=== PATIENT | male | born 1950 | race Caucasian/White ===

== ENCOUNTER 2023-05-08 10:05 | Outpatient (AMB) | payer MEDICARE, OTHER, SELFPAY ==
--- NOTE | 2023-05-08 10:07 | MHC.PC.OV ---
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 Allergies No Known Allergies Allergy (Verified 05/08/23 10:10) Tobacco use date assessed: 05/08/23 Fall risk assessment: No Falls in past year Last assessed Fall Risk: 05/08/23 Dental Screening Dental Screen Date: 05/08/23 Did you have a dental visit in the last 12 months?: Yes Did you have a dental problem in the last 6 months where you did not have access to dental care?: No Was dental information given to patient?: Patient has dentist HPI 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 HTN, PVD, Esophageal Stricture, Hepatitis SurgHx: Cardiac Stent 2016. Esophageal dilitation. FHx: Dad: CAD & WA age 45. Sister: DM SocHx: Quit Cigars 2015, EtOH: <1 drink less than once a week, No drugs PFSH Surgical History (Updated 05/08/23 @ 10:17 by Moises Saldivar CMA) H/O removal of cyst H/O shoulder surgery Hx of appendectomy Hx of cataract surgery Hx of hernia repair Status post surgical removal of neoplasm of skin Family History (Updated 05/08/23 @ 10:18 by Moises Saldivar CMA) Father Heart problem Mother Heart problem Social History (Updated 05/08/23 @ 10:19 by Moises Saldivar CMA) Housing: House Alcohol intake: current Alcohol intake frequency: a few times a month Alcohol type: beer and wine Patient Tobacco Use Status: Former Tobacco user Tobacco use type: Cigar e-Cigarette/Vaping Use: Never Used service: No Current occupational status: employed Current occupational exposures/hazards: No Cognitive needs: No Hearing needs: No Vision needs: Yes Questionnaire PHQ-9 Over the last 2 weeks, how often have you been bothered by any of the following problems? 1. Little interest or pleasure in doing things: not at all 2. Feeling down, depressed, or hopeless: several days 3. Trouble falling or staying asleep, or sleeping too much: several days 4. Feeling tired or having little energy: several days 5. Poor appetite or overeating: several days 6. Feeling bad about yourself - or that you are a failure or have let yourself or your family down: several days 7. Trouble concentrating on things, such as reading the newspaper or watching television: not at all 8. Moving or speaking so slowly that other people could have noticed. Or the opposite - being so fidgety or restless that you have been moving around a lot more than usual: not at all 9. Thoughts that you would be better off or of hurting yourself in some way: not at all Total score: 5 44265 - PHQ-9 Billing: Yes Source: Developed by Drs. Henry Tony, Angie Funes, Lito Jean-Baptiste and colleagues, with an educational kinza from [employer]. Thrive Questionnaire Date Thrive assessed: 05/08/23 I am a: Patient What is your living situation today?: I have a steady place to live Within the past 12 months, did the food you bought not last and you didn't have the money to get more?: Never true Within the past 12 months, did you worry whether your food would run out before you got money to buy more?: Never true Do you have trouble paying for medicines?: No Do you have trouble getting transportation to medical appointments?: No Do you have trouble paying your heating and electricity bill?: No Do you have trouble taking care of your child, family member or friend?: No Do you have trouble with day-to-day activities such as bathing, preparing meals, shopping, managing finances, etc.?: No Are you currently unemployed and looking for a job?: No Are you interested in more education?: No Please select the resources that you would like help with: None Currently or been in a relationship where the following occur: no concerns reported BUDDY-7 AMB Questionnaire BUDDY-7 Date BUDDY - 7 assessed: 05/08/23 Feeling nervous, anxious, or on edge: 1 = Several days Not being able to stop or control worryin = Not at all Worrying too much about different things: 0 = Not at all Trouble relaxin = Not at all Being so restless that it is hard to sit still: 0 = Not at all Becoming easily annoyed or irritable: 0 = Not at all Feeling afraid as if something awful might happen: 0 = Not at all Total BUDDY-7 score (0-4 normal; 5-9 mild; 10-14 moderate; 15-21 severe): 1 Source: Developed by Drs. Henry Tony, Angie Funes, Lito Jean-Baptiste and colleagues, with an educational kinza from [employer]. BUDDY-7 Assessment Billing BUDDY-7 Assessment Tool: BUDDY-7 Assessment 83067 Review of Systems Const Denies chills, Denies fatigue, Denies fever(s), Reports headache(s) and Denies weakness ENT Denies dizziness and Reports headache(s) Card Denies chest pain, Denies lightheadedness, Denies dyspnea and Denies other (Palpitations) Resp Denies cough, Denies dyspnea, Denies wheezing and Denies other ( shortness of breath) Musc Denies numbness and Denies tingling Neuro Denies dizziness, Reports headache(s), Denies numbness, Denies tingling, Denies paresthesias and Denies weakness Psych Denies anxiety and Denies depression Endo Denies fatigue Aller/Immun Denies wheezing Physical exam (Primary Care) Vital Signs: Last Vital Signs Pulse 55 05/08/23 10:09 BP 122/66 05/08/23 10:09 Pulse Ox 98 05/08/23 10:09 Oxygen Delivery Method Room Air 05/08/23 10:09 BMI result Body Mass Index 24.2 Tobacco/Smoking Status: Tobacco use Status Tobacco use date assessed 05/08/23 05/08/23 10:23 Patient Tobacco Use Status Former Tobacco user 05/08/23 10:23 Tobacco use type Cigar 05/08/23 10:23 e-Cigarette/Vaping Use Never Used 05/08/23 10:23 PHQ-9: PHQ-9 Score PHQ-9: Total score 5 05/08/23 10:26 Thrive Assessment: Date of Thrive Assessment Date Thrive assessed 05/08/23 05/08/23 10:23 Currently or been in a relationship where the following occur: no concerns reported Const General: no acute distress and well developed Nutritional Appearance: well nourished Orientation/consciousness: patient oriented x3 HENMT Head: Yes normocephalic and Yes atraumatic Eyes General: appearance normal, both eyes and all related structures Pupils: Equal, round and reactive pupils present EOM: EOMs intact bilaterally Resp Effort & Inspection: normal respiratory effort Auscultation: clear to auscultation bilaterally Cardio Rate: regular rate Rhythm: regular rhythm Heart sounds: S1 normal heart sound present, S2 normal heart sound present, no gallops, no murmurs and no rubs Neuro General: patient oriented x3 and gait normal Cranial nerves: Yes Equal, round and reactive pupils present Psych Affect: normal affect Assessment and Plan Assessment & Plan (1) Hyperlipidemia: Code(s): E78.5 - Hyperlipidemia, unspecified Plan: Patient is on atorvastatin Check labs (2) Hypertension: Code(s): I10 - Essential (primary) hypertension Plan: Blood pressure is well controlled for patient with coronary artery disease. Goal is less than 130/80 Continue current medication regimen (3) CAD (coronary artery disease): Code(s): I25.10 - Atherosclerotic heart disease of [place] coronary artery without angina pectoris Plan: Stable History of WA and stent - patient notes he was told he had no myocardial damage as he was in the cardiac catheterization lab when the WA occurred Continue aspirin and atorvastatin Continue metoprolol and blood pressure medications Follow-up with Cardiology as recommended (4) History of WA (myocardial infarction): Code(s): I25.2 - Old myocardial infarction Plan: As above (5) Peripheral vascular disease: Code(s): I73.9 - Peripheral vascular disease, unspecified Plan: Continue atorvastatin Continue exercise Follow-up with vascular surgeon as recommended (6) History of esophageal stricture: Code(s): Z87.19 - Personal history of other diseases of the digestive system Plan: Continue pantoprazole Currently stable (7) History of hepatitis: Code(s): Z86.19 - Personal history of other infectious and parasitic diseases Plan: Patient notes history of hepatitis-he is uncertain about details Check labs including hepatitis panel and liver enzymes (8) Headache: Code(s): R51.9 - Headache, unspecified Plan: Patient notes headaches since seeing his eye doctor for cataracts Follow-up with Dr. Alcazar as recommended He will let me know if headaches persist despite improvement of vision (9) Laboratory exam ordered as part of routine general medical examination: Code(s): Z00.00 - Encounter for general adult medical examination without abnormal findings Plan: Check labs Orders: Orders Comprehensive [place]. Panel Fast Today Z00.00 - Encounter for general adult medical examination without abnormal findings Lipid Panel Today Z00.00 - Encounter for general adult medical examination without abnormal findings Prostate Specific Antigen Scr Today Z12.5 - Encounter for screening for malignant neoplasm of prostate TSH reflex Free T4 Today Z00.00 - Encounter for general adult medical examination without abnormal findings Microalbumin, Random (w Creat) Today I10 - Essential (primary) hypertension Complete Blood Count Auto Diff Today Z00.00 - Encounter for general adult medical examination without abnormal findings UA and rflx microscopic Today Z00.00 - Encounter for general adult medical examination without abnormal findings Hepatitis B,C Profile Today Z11.3 - Encounter for screening for infections with a predominantly sexual mode of transmission Coding Level of Care Code New Pt Level 4 (65255) Diagnoses Hyperlipidemia E78.5 Hypertension I10 CAD (coronary artery disease) I25.10 History of WA (myocardial infarction) I25.2 Peripheral vascular disease I73.9 History of esophageal stricture Z87.19 History of hepatitis Z86.19 Headache R51.9 Laboratory exam ordered as part of routine general medical examination Z00.00 Additional Codes BUDDY-7 Assessment Billing - BUDDY-7 Assessment Tool: BUDDY-7 Assessment [id number] ([id number])
[2023-05-08 10:09] VITALS: BP 122/66; PULSE 55; O2SAT 98; BMI 24.2
== END 2023-05-08 10:59 | disposition home or self-care (01) ==
PROVIDERS: Visit Provider Family Medicine
DX: I10 Essential (primary) hypertension (principal); I73.9 Peripheral vascular disease, unspecified; Z87.19 Personal history of other diseases of the digestive system; Z86.19 Personal history of other infectious and parasitic diseases; E78.5 Hyperlipidemia, unspecified; I25.10 Atherosclerotic heart disease of native coronary artery without angina pectoris; I25.2 Old myocardial infarction; R51.9 Headache, unspecified; Z00.00 Encounter for general adult medical examination without abnormal findings
CPT/HCPCS: 99204

== ENCOUNTER 2023-05-08 10:43 | Outpatient (REF) | payer MEDICARE, OTHER, SELFPAY ==
[2023-05-08 14:23] LABS: MANUAL DIFF FLAG NO
[2023-05-08 14:29] LABS: Basophils Absolute Auto 0.1 X10*3/uL (0.0-0.2); Eosinophils Absolute Auto 0.1 X10*3/uL (0.0-0.4); Eosinophils Percent Auto 1.1 % (0-4); Hematocrit 37.5 % (42.0-52.0); Hemoglobin 11.9 g/dl (14.0-18.0); Imm Gran Abs Auto 0.01 X10*3/uL (0.00-0.03); Imm Gran Pct Auto 0.2 % (0.0-0.4); Lymphocytes Absolute Auto 1.8 X10*3/uL (1.2-4.9); Lymphocytes Percent Auto 33.6 % (20-40); Mean Corpuscular HGB Conc 31.7 g/dl (31.0-36.0); Mean Corpuscular Volume 91.5 fL (80.0-98.0); Mean Platelet Volume 11.5 fL (9.4-12.4); Monocytes Absolute Auto 0.4 X10*3/uL (0.1-1.2); Monocytes Percent Auto 7.9 % (2-11); Neutrophils Percent Auto 55.2 % (45-73); Platelet Count 276 X10*3/uL (160-400); Red Cell Distribution Width 12.9 % (11.0-16.0); White Blood Count 5.5 X10*3/uL (4.8-10.8)
[2023-05-08 15:03] LABS: Appearance Urine Clear; Color Urine Yellow; Glucose Urine UA Negative (Negative); Leukocyte Esterase Urine Negative (Negative); Nitrite Urine Negative (Negative); PH 5.5 (5.0-9.0); Specific Gravity - Urine 1.015 (1.005-1.025); Urine Blood Negative (Negative); Urine Ketones Negative (Negative); Urine Protein Negative (Neg-Trace)
[2023-05-08 15:36] LABS: Alanine Aminotransferase 17 U/L (0-40); Alkaline Phosphatase 58 U/L (39-117); Anion Gap 13 (12-20); Aspartate Amino Transferase 19 U/L (5-37); Bilirubin Total 0.9 mg/dL (0.0-1.0); Blood Urea Nitrogen 23 mg/dL (9-16); Calcium 9.1 mg/dL (8.4-10.2); Carbon Dioxide 22 mmol/L (22-29); Chloride 112 mmol/L (96-108); Cholesterol 99 mg/dL; Estimated Glomerular Filt Rate > 60; Glucose Fasting 109 mg/dL (60-99); HDL Cholesterol 36 mg/dL; LDL Cholesterol Calculated 55 mg/dl; Potassium 4.4 mmol/L (3.3-5.1); Sodium 143 mmol/L (135-145); Total Protein 6.4 g/dL (6.5-8.0); Triglycerides 43 mg/dL
[2023-05-08 15:46] LABS: Prostate Specific Antigen Scr 1.01 ng/mL (<0.05-4.0)
[2023-05-08 15:52] LABS: TSH reflex Free T4 2.06 uIU/mL (0.32-4.0)
[2023-05-08 16:50] LABS: Creatinine Urine 73.27 mg/dL; Microalbum/Creatinine Ratio Ur 12.2 ug/mg cr
== END 2023-05-08 10:44 | disposition home or self-care (01) ==
LOC: HO.WFDLDS 10:43
PROVIDERS: Visit Provider Family Medicine
DX: Z00.00 Encounter for general adult medical examination without abnormal findings (principal); I10 Essential (primary) hypertension; Z12.5 Encounter for screening for malignant neoplasm of prostate; Z11.3 Encounter for screening for infections with a predominantly sexual mode of transmission
CPT/HCPCS: 36415; 80053; 80061; 81003; 82043; 84153; 84443; 85025

== ENCOUNTER 2023-08-14 08:57 | Outpatient (AMB) | payer MEDICARE, OTHER, SELFPAY ==
[2023-08-14 09:14] VITALS: BP 118/60; PULSE 58; O2SAT 98; BMI 23.7
--- NOTE | 2023-08-14 09:14 | MHC.PC.OV ---
Vital Signs 08/14/23 09:14 Height 5 ft 10 in Weight 165 lb BMI 23.7 BP 118/60 Blood Pressure Location Lt brachial Position Sitting Pulse 58 Pulse Source Pulse Oximeter Pulse Oximetry (%) 98 Oxygen Delivery Method Room Air Intake Visit Reasons: Extended exam with f/u labs and health maintenance Intake Note: Patient is here for extended exam and follow up on labs. Allergies cat dander Allergy (Mild, Verified 08/14/23 09:20) bumps on skin, eyes and nose closes Latex, Natural Rubber Allergy (Mild, Verified 08/14/23 09:20) itchy skin Tobacco use date assessed: 08/14/23 Fall risk assessment: No Falls in past year Last assessed Fall Risk: 08/14/23 Dental Screening Dental Screen Date: 08/14/23 Did you have a dental visit in the last 12 months?: Yes Did you have a dental problem in the last 6 months where you did not have access to dental care?: No Was dental information given to patient?: Patient has dentist HPI Extended exam with f/u labs and health maintenance HPI Details 72 y/o male presents for an extended exam with f/u labs and health maintenance. Labs were drawm 05/08/23. Reviewed labs with pt. Anemia. Elevated fasting glucose of 109. A1c today 08/14/23 is 5.4%. Triglycerides 43. TC 99. LDL 55. HDL low at 36. Pt reports an episode of weakness/fatigue throughout his body along with numbness/tingling of his fingers. Pt has complaints of vertigo. PFSH Surgical History (Updated 05/08/23 @ 10:17 by Moises Saldivar CMA) H/O removal of cyst H/O shoulder surgery Hx of hernia repair Status post surgical removal of neoplasm of skin Hx of appendectomy Hx of cataract surgery Family History (Updated 05/08/23 @ 10:18 by Moises Saldivar CMA) Father Heart problem Mother Heart problem Social History (Updated 05/08/23 @ 10:19 by Moises Saldivar CMA) Housing: House Alcohol intake: current Alcohol intake frequency: a few times a month Alcohol type: beer and wine Patient Tobacco Use Status: Former Tobacco user Tobacco use type: Cigar e-Cigarette/Vaping Use: Never Used service: No Current occupational status: employed Current occupational exposures/hazards: No Cognitive needs: No Hearing needs: No Vision needs: Yes Questionnaire Thrive Questionnaire Date Thrive assessed: 05/08/23 BUDDY-7 AMB Questionnaire BUDDY-7 Date BUDDY - 7 assessed: 05/08/23 Source: Developed by Drs. Henry Tony, Angie Funes, Lito Jean-Baptiste and colleagues, with an educational kinza from [employer]. Physical exam (Primary Care) Vital Signs: Last Vital Signs Pulse 58 08/14/23 09:14 BP 118/60 08/14/23 09:14 Pulse Ox 98 08/14/23 09:14 Oxygen Delivery Method Room Air 08/14/23 09:14 BMI result Body Mass Index 23.7 Tobacco/Smoking Status: Tobacco use Status Tobacco use date assessed 08/14/23 08/14/23 09:23 Patient Tobacco Use Status Former Tobacco user 08/14/23 09:18 Tobacco use type Cigar 08/14/23 09:18 e-Cigarette/Vaping Use Never Used 08/14/23 09:18 Thrive Assessment: Date of Thrive Assessment Date Thrive assessed 05/08/23 08/14/23 09:18 Results AMB Hemoglobin A1c AMB Hemoglobin A1c 5.4 % Last Edit by Gloria Srinivasan CMA on 08/14/23 09:32 Assessment and Plan Assessment & Plan (1) Elevated fasting glucose: Code(s): R73.01 - Impaired fasting glucose Plan: Mildly?elevated?fasting?blood?sugars?but?A1c?is?still?within?normal?limits?at?5.4% Repeating?fasting?blood?sugar Will?follow (2) Anemia: Code(s): D64.9 - Anemia, unspecified Plan: Repeat?CBC?along?with?iron?and?B12 (3) Hyperlipidemia: Code(s): E78.5 - Hyperlipidemia, unspecified Plan: He?is?on?atorvastatin HDL?is?low Encouraged?exercise (4) Hypertension: Code(s): I10 - Essential (primary) hypertension Plan: Blood?pressure?appears?well?controlled.??History?of?coronary?artery?disease?and?his?weather forcaster?wants?blood?pressure?very?low. He?has?had?some?dizziness?and?fatigue?without?any?lateralizing?symptoms. I?recommended?goal?of?less?than?120/80?but?not?less?than?systolic?blood?pressure?of?105 Continue?current?medication?regimen Follow-up?with?weather forcaster?as?recommended (5) Vertigo: Code(s): R42 - Dizziness and giddiness Plan: History?of?tinnitus?and?vertigo. Will?refer?him?to?physical?therapy?for?vestibular?rehab (6) CAD (coronary artery disease): Code(s): I25.10 - Atherosclerotic heart disease of [place] coronary artery without angina pectoris Plan: [place] [place]?coronary?artery?disease?and?stent Stable Encouraged?exercise EKG?today: ?Mild?sinus?bradycardia?with?right?bundle-branch?block Follow-up?with?weather forcaster?in?October (7) Urinary hesitancy: Code(s): R39.11 - Hesitancy of micturition Plan: PSA?within?normal?limits?but?patient?has?issues?with?hesitancy?and?known?BPH He?had?had?a?urologist?but?wants?a?new?one [place] [place]8) Screening for prostate cancer: Code(s): Z12.5 - Encounter for screening for malignant neoplasm of prostate Plan: As?above,?PSA?level?is?within?normal?limits (9) Screening for colon cancer: Code(s): Z12.11 - Encounter for screening for malignant neoplasm of colon Plan: Followed?by??at?[facility] History?of?polyps. Last?colonoscopy?about?3-4?years?ago?and?he?was?recommended?to?follow-up?in?5?years. Currently?up-to-date. (10) Adult general medical exam: Code(s): Z00.00 - Encounter for general adult medical examination without abnormal findings Plan: 72-year-old?male?presents?for?an?extended?exam Encouraged?healthy?diet?with?active?lifestyle?and?plenty?of?exercise Orders: Orders Comprehensive [place]. Panel Fast Today R73.01 - Impaired fasting glucose, Z00.00 - Encounter for general adult medical examination without abnormal findings PT Evaluation and Treatment Today R42 - Dizziness and giddiness Hepatitis B,C Profile Today Z11.3 - Encounter for screening for infections with a predominantly sexual mode of transmission, Z86.19 - Personal history of other infectious and parasitic diseases Complete Blood Count Auto Diff Today Z00.00 - Encounter for general adult medical examination without abnormal findings, Z86.19 - Personal history of other infectious and parasitic diseases AMB Hemoglobin A1c Today Z13.9 - Encounter for screening, unspecified IRON PROFILE Today D64.9 - Anemia, unspecified Vitamin B12 and Folate Today D64.9 - Anemia, unspecified, E53.8 - Deficiency of other specified B group vitamins Referrals Urology Referral N40.0 - Benign prostatic hyperplasia without lower urinary tract symptoms, R39.11 - Hesitancy of micturition Coding Level of Care Code Est Pt Level 4 (64744) Diagnoses Elevated fasting glucose R73.01 Anemia D64.9 Hyperlipidemia E78.5 Hypertension I10 Vertigo R42 CAD (coronary artery disease) I25.10 Urinary hesitancy R39.11 Screening for prostate cancer Z12.5 Screening for colon cancer Z12.11 Adult general medical exam Z00.00
== END 2023-08-14 10:25 ==
PROVIDERS: PCP Family Medicine; Visit Provider Family Medicine
DX: R73.01 Impaired fasting glucose (principal); D64.9 Anemia, unspecified; E78.5 Hyperlipidemia, unspecified; I10 Essential (primary) hypertension; R42 Dizziness and giddiness; I25.10 Atherosclerotic heart disease of native coronary artery without angina pectoris; R39.11 Hesitancy of micturition; Z12.5 Encounter for screening for malignant neoplasm of prostate; Z12.11 Encounter for screening for malignant neoplasm of colon; Z00.00 Encounter for general adult medical examination without abnormal findings; Z13.9 Encounter for screening, unspecified
CPT/HCPCS: 83036; 99214

== ENCOUNTER 2023-08-14 10:31 | Outpatient (REF) | payer MEDICARE, OTHER, SELFPAY ==
[2023-08-14 14:19] LABS: MANUAL DIFF FLAG NO
[2023-08-14 14:30] LABS: Basophils Absolute Auto 0.1 X10*3/uL (0.0-0.2); Basophils Percent Auto 2.1 % (0-2); Eosinophils Percent Auto 0.8 % (0-4); Hematocrit 39.1 % (42.0-52.0); Hemoglobin 12.4 g/dl (14.0-18.0); Imm Gran Abs Auto 0.01 X10*3/uL (0.00-0.03); Imm Gran Pct Auto 0.2 % (0.0-0.4); Lymphocytes Absolute Auto 1.6 X10*3/uL (1.2-4.9); Lymphocytes Percent Auto 32.9 % (20-40); Mean Corpuscular HGB Conc 31.7 g/dl (31.0-36.0); Mean Corpuscular Hemoglobin 28.4 pg (27.0-33.0); Mean Corpuscular Volume 89.5 fL (80.0-98.0); Mean Platelet Volume 11.3 fL (9.4-12.4); Monocytes Absolute Auto 0.4 X10*3/uL (0.1-1.2); Monocytes Percent Auto 8.4 % (2-11); Neutrophils Absolute Auto 2.7 x10*3/uL (2.0-8.3); Neutrophils Percent Auto 55.6 % (45-73); Platelet Count 289 X10*3/uL (160-400); Red Blood Count 4.37 X10*6/uL (4.60-5.80); Red Cell Distribution Width 12.7 % (11.0-16.0); White Blood Count 4.9 X10*3/uL (4.8-10.8)
[2023-08-14 14:47] LABS: Alanine Aminotransferase 26 U/L (0-40); Albumin Level 4.2 g/dL (3.5-5.0); Alkaline Phosphatase 66 U/L (39-117); Anion Gap 11 (12-20); Aspartate Amino Transferase 26 U/L (5-37); Bilirubin Total 0.8 mg/dL (0.0-1.0); Blood Urea Nitrogen 20 mg/dL (9-16); Calcium 8.9 mg/dL (8.4-10.2); Carbon Dioxide 25 mmol/L (22-29); Chloride 107 mmol/L (96-108); Estimated Glomerular Filt Rate > 60; Glucose Fasting 123 mg/dL (60-99); Iron 64 mcg/dL (45-160); Percent Iron Saturation 24 % (15-50); Potassium 4.5 mmol/L (3.3-5.1); Sodium 138 mmol/L (135-145); Total Iron Binding Capacity 270 mcg/dL (228-428); Total Protein 6.7 g/dL (6.5-8.0); Unsaturated Iron Binding 206 ug/dL
[2023-08-14 15:15] LABS: Folate 11.5 ng/mL (> or = 4.0); Vitamin B12 1076 pg/mL (200-900)
[2023-08-15 05:53] LABS: HBS Num1 0.68 mIU/mL (0-7.99); HBc Num1 0.11 S/CO (0.00-0.79); HBsAGNum1 1.21 S/CO (0.00-0.99); Hepatitis B Core Antibody Nonreactive (Nonreactive); ~HepC Num1 0.07 S/CO (0.00-0.79); ~Hepatitis B Surface Antibody NONREACTIVE (Nonreactive); ~Hepatitis C Antibody Nonreactive (Nonreactive)
[2023-08-15 06:38] LABS: HBsAGNum2 Nonreactive; HBsAGNum3 Nonreactive; Hepatitis B Surface Antigen NEGATIVE (Negative)
== END 2023-08-14 10:32 | disposition home or self-care (01) ==
LOC: HO.WFDLDS 10:31
PROVIDERS: Visit Provider Family Medicine
DX: Z00.00 Encounter for general adult medical examination without abnormal findings (principal); Z11.3 Encounter for screening for infections with a predominantly sexual mode of transmission; D64.9 Anemia, unspecified; E53.8 Deficiency of other specified B group vitamins; R73.01 Impaired fasting glucose; Z86.19 Personal history of other infectious and parasitic diseases
CPT/HCPCS: 36415; 80053; 82607; 82746; 83540; 85025; 86704; 86706; 86803; 87340

== ENCOUNTER 2023-09-05 13:05 | Outpatient (RCR) | payer MEDICARE, OTHER, SELFPAY ==
--- NOTE | 2023-09-21 16:25 | MHC.PT.EP ---
[facility] [place] Office [place] Office [place] Office [address] Florian Lewis [address] [phone] F: [phone] F: [phone] F: [phone] F: [phone] Physical Therapy Plan of Care Date of Evaluation: 09/05/23 Date of Surgery: Diagnosis: (5) Vertigo: Code(s): R42 - Dizziness and giddiness Plan: History?of?tinnitus?and?vertigo. Will?refer?him?to?physical?therapy?for?vestibular?rehab referred by Dr. 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 Colindres for treatment of Dizziness and giddiness: Vestibular rehab with date of referral 08/14/23. Pt expressing history of tinnitus for many years, exhibits (-) nystagmus or symptomatic testing with screening of Bernard-pike testing L and R this date. He was noted to have lower blood pressure, as desired by his strip feeder/PCP due to history of cardiac issues but was negative at time for orthostatic screening when in therapy office on 09/05/23. Had EKG in PCP office on 08/14/23 indicated sinus bradycardi and RBBB. He did appear to exhibit screening which would indicate he would benefit from gaze stabilization exercises, (+) sx provocation with cervical screening and VOR head thrust so he was given a written HEP to support this. Pt was encouraged to make a follow up appt to come back to PT. Initial EVAL was lost- this was reentered. Addendum 09/21/23: Therapist called patient on 09/21/23 as therapist became aware he needed to cancel his PT due to ongoing busy two weeks and elected to not be seen back in PT until middle of October. During follow up call, pt reported worsening dizzy spells past few days, increased stress at home and work next few weeks. Therapist asked patient over the phone if he had been taking his blood pressure lately at home and he states, Yes it has been very high for me the past few days, 150s/160s/ middle 60s/70s, im usually very low. Pt was advised to phone his strip feeder to relay his specific BPs numbers and inquire on recommendations which may be needed due to his personal history. Pt was educated that therapist would be relaying this message to his PCP. Pt was educated re: need to seek emergency medical care should he begin to feel ill or symptomatic and to keep monitoring his vitals at home. Pt was advised to stop performing the gaze stabilization exercises in the meantime and was encouraged to make a follow up with PCP. Dr. Colindres was made aware of current status and communication made with patient this date. Frequency and Duration: The patient will be seen Follow up in one week Short Term Goals: 1. Negative vertigo sx. 2. Resume walking on uneven terrain without losing his balance. Quality Control Lab Tech Goals: 1. I HEP. 2. Negative vertigo sx. 3. Demonstrate good dynamic balance with functional mobility. Treatment Plan: Modalities to reduce pain, spasms and effusion. Manual therapy to restore motion and function. Therapeutic exercise to improve strength and flexibility. Neuromuscular re-education for posture and balance. Therapeutic activities to return to functional activities of daily living. Electronically signed by: Mayi Almonte, PT, DPT Please sign and return to therapist. Thank you for your referral.
== END 2023-11-07 13:27 | disposition home or self-care (01) ==
LOC: HO.PTWFD 13:05
PROVIDERS: PCP Family Medicine; Visit Provider Family Medicine
DX: R42 Dizziness and giddiness (principal)
CPT/HCPCS: 97162

== ENCOUNTER 2023-10-24 13:47 | Outpatient (AMB) | payer MEDICARE, OTHER, SELFPAY ==
--- NOTE | 2023-10-24 14:02 | MHC.OFFVIS ---
Intake Intake Visit Reasons: Hesitancy of micturition/BPH Intake Note: New Patient presents today to establish treatment for hesitancy of micturition Tubing Tester Required: No Accompanied by: Self / Same As Patient Allergies cat dander Allergy (Mild, Verified 10/24/23 20:27) bumps on skin, eyes and nose closes Latex, Natural Rubber Allergy (Mild, Verified 10/24/23 20:27) itchy skin No Known Drug Allergies Allergy (Unknown, Verified 10/24/23 20:27) Unknown pollen Allergy (Mild, Uncoded 10/24/23 20:27) Unknown Medication List - Last Reconciled 10/24/23 by PEDRO Tinsley aspirin (Adult Aspirin Regimen) 81 mg PO DAILY atorvastatin 40 mg PO BEDTIME metoprolol succinate ER 50 mg PO DAILY 90 days pantoprazole 40 mg PO DAILY 90 days valsartan 40 mg PO DAILY HPI HPI Comments History of Present Illness Details Abdirahman is a very pleasant 73-year-old male patient of Dr. Colindres. He has a past medical history of coronary artery disease, mi in 2016 with a stent placed, hypertension, peripheral vascular disease, esophageal stricture, and hepatitis. He presents to the office today as a new patient for ongoing lower urinary tract symptoms. In discussion with the patient today he reports noting episodes of nocturia as well as hesitancy and weak urinary stream. He reports symptoms have been present for quite some time however feels they are worsening. He otherwise denies urinary urgency, urinary frequency, incontinence, hematuria, dysuria, foul smelling urine, flank pain, fever, and or chills. Discussed at length potential causes for lower urinary tract symptoms patient is experiencing. Discussed obtaining retroperitoneal ultrasound for further assessment evaluation. Discussed at length lifestyle modifications to assist with lower urinary tract symptoms as well as medications. However patient discusses reluctancy to medications and does not feel lower urinary tract symptoms are bothersome to him. In review of patient's chart it appears PSA 04/30- -1.0. In office urinalysis results reviewed with the patient today. PVR 23ml's. He otherwise denies any other issues or concerns at this time. [facility] Surgical History H/O removal of cyst H/O shoulder surgery Hx of hernia repair Status post surgical removal of neoplasm of skin Hx of appendectomy Hx of cataract surgery Family History Father Heart problem Mother Heart problem Social History Housing: House Alcohol intake: current Alcohol intake frequency: a few times a month Alcohol type: beer and wine Patient Tobacco Use Status: Former Tobacco user Tobacco use type: Cigar e-Cigarette/Vaping Use: Never Used service: No Current occupational status: employed Current occupational exposures/hazards: No Cognitive needs: No Hearing needs: No Vision needs: Yes Review of Systems Const Reports no additional complaints Eyes Reports no additional complaints ENT Reports no additional complaints Card Reports as per HPI Resp Reports no additional complaints GI Reports as per HPI Reports as per HPI Musc Reports no additional complaints Neuro Reports no additional complaints Psych Reports no additional complaints Endo Reports no additional complaints Jean/Lymph Reports no additional complaints Aller/Immun Reports no additional complaints Physical Exam Const General: cooperative, healthy appearing, comfortable, no acute distress, well developed, alert and awake Orientation/consciousness: patient oriented x3 Limitations: no limitations HEENT Head: Yes normal to inspection, Yes normocephalic and Yes atraumatic Ears: hearing grossly normal bilaterally Eyes General: appearance normal, both eyes and all related structures Neck Neck: Yes normal visual inspection and Yes trachea midline Chest Chest palpation & inspection: normal inspection of the chest Resp Effort & Inspection: normal respiratory effort and able to speak in complete sentences Cardio Rate: regular rate GI Inspection: Yes normal to inspection General: Yes no CVA tenderness Back/Spine/Pelvis Back: no CVA tenderness Skin General skin exam: no rashes or lesions noted Neuro General: patient oriented x3 Extrem General: Yes normal to inspection Psych Appearance: grossly normal and well kempt Mental Status: mental status grossly normal Speech and movement: Normal speech and movement present and Clear speech present Affect: normal affect Attitude: cooperative Thought process: Normal thought process present Thought content: Normal thought content present Insight: Fair insight present (Psych) Judgement: Fair judgement present (Psych) Office Procedures Post Void Residual Post Residual Void Post Void Residual (PVR): 24 42801-Hjqe Void Residual by ultrasound Results AMB Urinalysis, Automated UA Leukoctes 0 Lyndsey/uL Last Edit by Germania Srinivasan CMA on 10/24/23 14:24 UA Nitrite Negative Last Edit by [facility], [facility] on 10/24/23 14:24 UA Urobilinogen 0.2 mg/dL Last Edit by [facility], [facility] on 10/24/23 14:24 UA Protein 0 mg/dL Last Edit by [facility], [facility] on 10/24/23 14:24 UA pH 6.5 Last Edit by [facility], [facility] on 10/24/23 14:24 UA Blood 0 Mario/uL Last Edit by [facility], [facility] on 10/24/23 14:24 UA Specific [place] 1.020 Last Edit by [facility], [facility] on 10/24/23 14:24 UA Ketone Negative Last Edit by [facility], [facility] on 10/24/23 14:24 UA Bilirubin 0 mg/dL Last Edit by [facility], [facility] on 10/24/23 14:24 UA Glucose 0 mg/dL Last Edit by [facility], [facility] on 10/24/23 14:24 Results Reviewed Results Reviewed: Laboratory Last Values Urine pH (Auto) 6.5 10/24/23 14:22 Specific [place] (Auto) 1.020 10/24/23 14:22 Urine Protein (Auto) 0 mg/dL 10/24/23 14:22 Glucose (UA)(Auto) 0 mg/dL 10/24/23 14:22 Urine Ketones (Auto) Negative 10/24/23 14:22 Urine Blood (Auto) 0 Mario/uL 10/24/23 14:22 Urine Nitrite (Auto) Negative 10/24/23 14:22 Urine Bilirubin (Auto) 0 mg/dL 10/24/23 14:22 Urine Urobilinogen (Auto) 0.2 mg/dL 10/24/23 14:22 Leukocyte Esterase (Auto) 0 Lyndsey/uL 10/24/23 14:22 Assessment & Plan Assessment & Plan (1) Weak urinary stream: Code(s): R39.12 - Poor urinary stream (2) Nocturia: Code(s): R35.1 - Nocturia Plan In office urinalysis results reviewed with the patient today; as noted above. PVR 23 mL. Discussed at length potential causes for lower urinary tract symptoms patient is experiencing. Will obtain retroperitoneal ultrasound for further assessment evaluation. Discussed lifestyle modifications to assist with nocturia such as limiting fluids 2-3 hours prior to bed to decrease episodes of nocturia. Patient does not wish to try urological medications at this time as he does not feel lower urinary tract symptoms are bothersome at this time Follow-up in 1-2 months with imaging to be completed prior; or sooner with any issues, concerns, and or questions. Orders: Orders AMB Post Void Residual by ultrasound Today R33.9 - Retention of urine, unspecified AMB Urinalysis Automated Today R33.9 - Retention of urine, unspecified US retroperitoneal comp Today R35.1 - Nocturia, R39.12 - Poor urinary stream Patient Instructions: The patient had an opportunity to ask questions regarding the treatment plan. All questions were answered. Physical exam, labs, and imaging were discussed and reviewed in detail. As well as risks, benefits, and discussion of treatment choices. No major barriers to understanding were identified. The patient expressed understanding and agreement with the above treatment plan. The patient was made aware they should contact our office by phone for worsening of their current condition, the appearance of new symptoms, or with any questions or concerns. Compliance is encouraged with any medications and follow up testing that is ordered. It is a privilege to be allowed the opportunity to participate in? your urological care.? Again, if you have any questions or concerns If you have any questions or concerns please do not hesitate to contact me. The office is [phone]. This note is constructed using voice recognition software. While every effort has been made to ensure accuracy small engine trainer errors may have been included. Yours sincerely, PEDRO Tinsley Coding Level of Care Code New Pt Level 3 (01904) Diagnoses Weak urinary stream R39.12 Nocturia R35.1 CPT Codes Post Residual Void - PVR CPT Code: 55579-Hbyq Void Residual by ultrasound ([id number])
== END 2023-10-24 14:33 | disposition home or self-care (01) ==
PROVIDERS: PCP Family Medicine; Visit Provider Nurse Practitioner Family
DX: R39.12 Poor urinary stream (principal); R35.1 Nocturia
CPT/HCPCS: 99203

== ENCOUNTER → 2023-10-24 13:47 | Outpatient (BNVA) | payer MEDICARE, OTHER, SELFPAY | PROVIDERS: PCP Family Medicine; Visit Provider Nurse Practitioner Family | DX: R39.11 Hesitancy of micturition (principal); R39.12 Poor urinary stream; R33.9 Retention of urine, unspecified; R35.1 Nocturia | CPT/HCPCS: 51798; 81003; 99202 ==

== ENCOUNTER 2023-10-31 13:39 | Outpatient (AMB) | payer MEDICARE, OTHER, SELFPAY ==
[2023-10-31 13:47] VITALS: BP 130/76; PULSE 60; O2SAT 98; BMI 23.7
--- NOTE | 2023-10-31 13:47 | A.OFFPC_ITS ---
Vital Signs 10/31/23 13:47 Height 5 ft 10 in Weight 165 lb BMI 23.7 BP 130/76 Blood Pressure Location Lt brachial Position Sitting Pulse 60 Pulse Source Pulse Oximeter Pulse Oximetry (%) 98 Oxygen Delivery Method Room Air Intake Visit Reasons: Follow-up?mild?anemia, history?of?hep,?elev fbs Intake Note: Patient is here to follow up on last blood work. Allergies cat dander Allergy (Mild, Verified 10/31/23 13:49) bumps on skin, eyes and nose closes Latex, Natural Rubber Allergy (Mild, Verified 10/31/23 13:49) itchy skin No Known Drug Allergies Allergy (Unknown, Verified 10/31/23 13:49) Unknown pollen Allergy (Mild, Uncoded 10/31/23 13:49) Unknown Tobacco use date assessed: 10/31/23 Fall risk assessment: No Falls in past year Last assessed Fall Risk: 10/31/23 Dental Screening Dental Screen Date: 10/31/23 Did you have a dental visit in the last 12 months?: Yes Did you have a dental problem in the last 6 months where you did not have access to dental care?: No Was dental information given to patient?: Patient has dentist HPI Follow-up?mild?anemia, history?of?hep,?elev fbs HPI Details 73 y/o male presents to f/u mild anemia, history of hep, elevated fasting blood sugars. Labs were drawn 08/14/23. Reviewed labs with pt. Mild anemia slightly improving. A1c 5.4% and elevated fasting glucose 123. PFSH Surgical History H/O removal of cyst H/O shoulder surgery Hx of hernia repair Status post surgical removal of neoplasm of skin Hx of appendectomy Hx of cataract surgery Family History Father Heart problem Mother Heart problem Social History Housing: House Alcohol intake: current Alcohol intake frequency: a few times a month Alcohol type: beer and wine Patient Tobacco Use Status: Former Tobacco user Tobacco use type: Cigar e-Cigarette/Vaping Use: Never Used service: No Current occupational status: employed Current occupational exposures/hazards: No Cognitive needs: No Hearing needs: No Vision needs: Yes Questionnaire Thrive Questionnaire Date Thrive assessed: 05/08/23 BUDDY-7 AMB Questionnaire BUDDY-7 Date BUDDY - 7 assessed: 05/08/23 Source: Developed by Drs. Henry Tony, Angie Funes, Lito Jean-Baptiste and colleagues, with an educational kinza from [employer]. Review of Systems Const Denies chills, Denies fatigue, Denies fever(s), Denies headache(s) and Denies weakness ENT Denies dizziness and Denies headache(s) Card Denies chest pain, Denies lightheadedness, Denies dyspnea and Denies other (Palpitations) Resp Denies cough, Denies dyspnea, Denies wheezing and Denies other ( shortness of breath) Musc Denies numbness and Denies tingling Neuro Denies dizziness, Denies headache(s), Denies numbness, Denies tingling, Denies paresthesias and Denies weakness Psych Denies anxiety and Denies depression Endo Denies fatigue Aller/Immun Denies wheezing Physical exam (Primary Care) Vital Signs: Last Vital Signs Pulse 60 10/31/23 13:47 BP 130/76 10/31/23 13:47 Pulse Ox 98 10/31/23 13:47 Oxygen Delivery Method Room Air 10/31/23 13:47 BMI result Body Mass Index 23.7 Tobacco/Smoking Status: Tobacco use Status Tobacco use date assessed 10/31/23 10/31/23 13:51 Patient Tobacco Use Status Former Tobacco user 10/31/23 13:51 Tobacco use type Cigar 10/31/23 13:51 e-Cigarette/Vaping Use Never Used 10/31/23 13:51 Thrive Assessment: Date of Thrive Assessment Date Thrive assessed 05/08/23 10/31/23 13:51 Const General: no acute distress and well developed Nutritional Appearance: well nourished Orientation/consciousness: patient oriented x3 HENMT Head: Yes normocephalic and Yes atraumatic Eyes General: appearance normal, both eyes and all related structures Pupils: Equal, round and reactive pupils present EOM: EOMs intact bilaterally Resp Effort & Inspection: normal respiratory effort Auscultation: clear to auscultation bilaterally Cardio Rate: regular rate Rhythm: regular rhythm Heart sounds: S1 normal heart sound present, S2 normal heart sound present, no gallops, no murmurs and no rubs Neuro General: patient oriented x3 and gait normal Cranial nerves: Yes Equal, round and reactive pupils present Psych Affect: normal affect Assessment and Plan Assessment & Plan (1) Anemia: Code(s): D64.9 - Anemia, unspecified Plan: Improving Encouraged?an?OTC?vitamin?B12?supplement?and?good?source?of?iron Will?continue?to?follow (2) Elevated fasting glucose: Code(s): R73.01 - Impaired fasting glucose Plan: Elevated?fasting?blood?sugars?but?his?A1c?is?still?in?normal?range Likely?some?insulin?resistance.??Encouraged?a?diet?lower?in?sugars?and?starches (3) History of hepatitis: Code(s): Z86.19 - Personal history of other infectious and parasitic diseases Plan: Patient?notes?a?history?of?hepatitis?as?a?young?man. However?hepatitis-B?and?C?titers?are?negative May?have?cleared?hep?C?years?ago. Liver?enzymes?are?normal Orders: Orders Complete Blood Count Auto Diff Today D64.9 - Anemia, unspecified, Z00.00 - Encounter for general adult medical examination without abnormal findings IRON PROFILE Today D64.9 - Anemia, unspecified Basic Metabolic Panel Today D64.9 - Anemia, unspecified, Z00.00 - Encounter for general adult medical examination without abnormal findings Vitamin B12 and Folate Today D64.9 - Anemia, unspecified, E53.8 - Deficiency of other specified B group vitamins Coding Level of Care Code Est Pt Level 3 (04918) Diagnoses Anemia D64.9 Elevated fasting glucose R73.01 History of hepatitis Z86.19
== END 2023-10-31 14:12 | disposition home or self-care (01) ==
PROVIDERS: PCP Family Medicine; Visit Provider Family Medicine
DX: D64.9 Anemia, unspecified (principal); R73.01 Impaired fasting glucose; Z86.19 Personal history of other infectious and parasitic diseases
CPT/HCPCS: 99213

== ENCOUNTER 2023-11-28 12:48 | Outpatient (REF) | payer MEDICARE, OTHER, SELFPAY ==
--- NOTE | ~2023-11-28 | US_ITS ---
EXAMINATION: US RETROPERITONEAL COMPLETE (RENAL) CLINICAL INFORMATION: Nocturia. COMPARISON: None available. TECHNIQUE: Real-time imaging of the kidneys and bladder. Limited visualization due to bowel gas. FINDINGS: RIGHT KIDNEY: 10.4 x 5.9 x 5.2 cm (SAG x AP x TRV). Lower pole 5 mm and 5 mm calculi. No hydronephrosis. Limited visualization. Renal cortical thickness is normal. Medial midpole 3.0 x 3.5 x 3.1 cm mildly complex cyst with septations. LEFT KIDNEY: 9.6 x 5.6 x 4.7 cm (SAG x AP x TRV). 5 mm midpole calculus. No hydronephrosis. Renal cortical thickness is normal. Limited visualization. Additional tiny echogenic foci without shadowing may represent artifact or tiny calculi. Midpole 0.7 x 0.5 x 0.7 cm echogenic may possibly represent a lesion such as an angiomyolipoma. BLADDER: Partially distended. Bilateral ureteral jets are demonstrated. Prevoid bladder volume is 223 mL. Postvoid bladder volume is 25 mL. ADDITIONAL FINDINGS: Prostate with echogenic foci characters of coarse calcifications, enlarged with prostate volume 86.2 mL. US/US retroperitoneal comp IMPRESSION: 1. Bilateral renal calculi. No hydronephrosis. 2. Right renal 3.5 cm mildly complex cyst with septations. Left renal 0.7 cm echogenic lesion may possibly represent a lesion such as an angiomyolipoma. CT scan with intravenous contrast employing renal mass protocol recommended for further characterization. 3. Enlarged prostate with coarse calcifications.
== END 2023-11-28 12:49 | disposition home or self-care (01) ==
LOC: HO.US 12:48
PROVIDERS: PCP Family Medicine; Visit Provider Nurse Practitioner Family
DX: R53.1 Weakness (principal); R39.12 Poor urinary stream
CPT/HCPCS: 76770

== ENCOUNTER 2024-01-10 13:06 | Outpatient (AMB) | payer MEDICARE, OTHER, SELFPAY ==
--- NOTE | 2024-01-10 13:23 | MHC.OFFVIS ---
Intake Intake Visit Reasons: 6w/US(set) Intake Note: Patient presents today for follow up Nocturia Urology Medications: none Blood Thinner: aspirin PVR: 35ml's Assisted Living Manager Required: No Accompanied by: Self / Same As Patient Allergies cat dander Allergy (Mild, Verified 01/10/24 21:17) bumps on skin, eyes and nose closes Latex, Natural Rubber Allergy (Mild, Verified 01/10/24 21:17) itchy skin No Known Drug Allergies Allergy (Unknown, Verified 01/10/24 21:17) Unknown pollen Allergy (Mild, Uncoded 01/10/24 21:17) Unknown Medication List - Last Reconciled 01/10/24 by RAMONA Tinsley- aspirin (Adult Aspirin Regimen) 81 mg PO DAILY atorvastatin 40 mg PO BEDTIME metoprolol succinate ER 50 mg PO DAILY 90 days pantoprazole 40 mg PO DAILY 90 days tamsulosin 0.4 mg PO BEDTIME 30 days valsartan 40 mg PO DAILY HPI HPI Comments History of Present Illness Details Abdirahman is a very pleasant 73-year-old male patient of Dr. Colindres. He has a past medical history of coronary artery disease, [place] in 2016 with a stent placed, hypertension, peripheral vascular disease, esophageal stricture, and hepatitis. He presents to the office today for follow-up. Of note, patient was seen approximately 3 months ago as a new patient for ongoing lower urinary tract symptoms at which time a retroperitoneal ultrasound was ordered for further assessment evaluation. These results were reviewed with the patient today. Right kidney with 2 5 mm calculi noted. No hydronephrosis. Medial mid pole 3.5 mildly complex cyst with septations. Left kidney with 5 mm mid pole calculus no hydronephrosis. Mid pole 0.7 cm echogenic focus that may represent a lesion such as an angiolipoma noted. The bladder is partially distended bilateral ureteral jets are demonstrated. Pre void bladder volume is approximately 220 mL. Postvoid bladder volume is approximately 25 mL. Prostate with echogenic foci characters of coarse calcifications in a prostate volume approximately [address] scan with IV contrast employing renal mass protocol recommended for further assessment evaluation per radiology report. PSAs are as follows: 04/30 1.0 He continues to report episodes of nocturia, hesitancy and weak urinary stream. He reports feeling at times nocturia is related to self infliction as he drinks the majority of his fluids after work when he gets home. He otherwise denies urinary urgency, urinary frequency, incontinence, hematuria, dysuria, foul smelling urine, flank pain, fever, and or chills. Discussed at length potential causes for lower urinary tract symptoms patient is experiencing. Discussed at length lifestyle modifications to assist with lower urinary tract symptoms as well as medications. In office urinalysis results reviewed with the patient today. PVR 35ml's. He otherwise denies any other issues or concerns at this time. PFSH Surgical History H/O removal of cyst H/O shoulder surgery Hx of hernia repair Status post surgical removal of neoplasm of skin Hx of appendectomy Hx of cataract surgery Family History Father Heart problem Mother Heart problem Social History Housing: House Alcohol intake: current Alcohol intake frequency: a few times a month Alcohol type: beer and wine Patient Tobacco Use Status: Former Tobacco user Tobacco use type: Cigar e-Cigarette/Vaping Use: Never Used service: No Current occupational status: employed Current occupational exposures/hazards: No Cognitive needs: No Hearing needs: No Vision needs: Yes Review of Systems Const Reports no additional complaints Eyes Reports no additional complaints ENT Reports no additional complaints Card Reports as per HPI Resp Reports no additional complaints GI Reports as per HPI Reports as per HPI Musc Reports no additional complaints Neuro Reports no additional complaints Psych Reports no additional complaints Endo Reports no additional complaints Jean/Lymph Reports no additional complaints Aller/Immun Reports no additional complaints Physical Exam Const General: cooperative, healthy appearing, comfortable, no acute distress, well developed, alert and awake Orientation/consciousness: patient oriented x3 Limitations: no limitations HEENT Head: Yes normal to inspection, Yes normocephalic and Yes atraumatic Ears: hearing grossly normal bilaterally Eyes General: appearance normal, both eyes and all related structures Neck Neck: Yes normal visual inspection and Yes trachea midline Chest Chest palpation & inspection: normal inspection of the chest Resp Effort & Inspection: normal respiratory effort and able to speak in complete sentences Cardio Rate: regular rate GI Inspection: Yes normal to inspection General: Yes no CVA tenderness Back/Spine/Pelvis Back: no CVA tenderness Skin General skin exam: no rashes or lesions noted Neuro General: patient oriented x3 Extrem General: Yes normal to inspection Psych Appearance: grossly normal and well kempt Mental Status: mental status grossly normal Speech and movement: Normal speech and movement present and Clear speech present Affect: normal affect Attitude: cooperative Thought process: Normal thought process present Thought content: Normal thought content present Insight: Fair insight present (Psych) Judgement: Fair judgement present (Psych) Office Procedures Post Void Residual Post Residual Void Post Void Residual (PVR): 35 [id number] Void Residual by ultrasound Results AMB Urinalysis, Automated UA Leukoctes 0 Lyndsey/uL Last Edit by [facility] on 01/10/24 13:36 UA Nitrite Negative Last Edit by [facility] on 01/10/24 13:36 UA Urobilinogen 0.2 mg/dL Last Edit by [facility] on 01/10/24 13:36 UA Protein 15 mg/dL Last Edit by [facility] on 01/10/24 13:36 UA pH 7.0 Last Edit by [employer] on 01/10/24 13:36 UA Blood 0 Mario/uL Last Edit by [facility] on 01/10/24 13:36 UA Specific [place] 1.015 Last Edit by [facility] on 01/10/24 13:36 UA Ketone Negative Last Edit by [facility] on 01/10/24 13:36 UA Bilirubin 0 mg/dL Last Edit by [facility] on 01/10/24 13:36 UA Glucose 0 mg/dL Last Edit by [facility] on 01/10/24 13:36 Results Reviewed Results Reviewed: Laboratory Last Values Urine pH (Auto) 7.0 01/10/24 13:27 Specific [place] (Auto) 1.015 01/10/24 13:27 Urine Protein (Auto) 15 mg/dL 01/10/24 13:27 Glucose (UA)(Auto) 0 mg/dL 01/10/24 13:27 Urine Ketones (Auto) Negative 01/10/24 13:27 Urine Blood (Auto) 0 Mario/uL 01/10/24 13:27 Urine Nitrite (Auto) Negative 01/10/24 13:27 Urine Bilirubin (Auto) 0 mg/dL 01/10/24 13:27 Urine Urobilinogen (Auto) 0.2 mg/dL 01/10/24 13:27 Leukocyte Esterase (Auto) 0 Lyndsey/uL 01/10/24 13:27 Date of Service: 11/28/23 EXAMINATION: US RETROPERITONEAL COMPLETE (RENAL) FINDINGS: RIGHT KIDNEY: 10.4 x 5.9 x 5.2 cm (SAG x AP x TRV). Lower pole 5 mm and 5 mm calculi. No hydronephrosis. Limited visualization. Renal cortical thickness is normal. Medial midpole 3.0 x 3.5 x 3.1 cm mildly complex cyst with septations. LEFT KIDNEY: 9.6 x 5.6 x 4.7 cm (SAG x AP x TRV). 5 mm midpole calculus. No hydronephrosis. Renal cortical thickness is normal. Limited visualization. Additional tiny echogenic foci without shadowing may represent artifact or tiny calculi. Midpole 0.7 x 0.5 x 0.7 cm echogenic may possibly represent a lesion such as an angiomyolipoma. BLADDER: Partially distended. Bilateral ureteral jets are demonstrated. Prevoid bladder volume is 223 mL. Postvoid bladder volume is 25 mL. ADDITIONAL FINDINGS: Prostate with echogenic foci characters of coarse calcifications, enlarged with prostate volume 86.2 mL. IMPRESSION: 1. Bilateral renal calculi. No hydronephrosis. 2. Right renal 3.5 cm mildly complex cyst with septations. Left renal 0.7 cm echogenic lesion may possibly represent a lesion such as an angiomyolipoma. CT scan with intravenous contrast employing renal mass protocol recommended for further characterization. 3. Enlarged prostate with coarse calcifications. Assessment & Plan Assessment & Plan (1) Complex renal cyst: Code(s): N28.1 - Cyst of kidney, acquired (2) Enlarged prostate: Code(s): N40.0 - Benign prostatic hyperplasia without lower urinary tract symptoms (3) Weak urinary stream: Code(s): R39.12 - Poor urinary stream (4) Nocturia: Code(s): R35.1 - Nocturia (5) Urinary hesitancy: Code(s): R39.11 - Hesitancy of micturition Plan In office urinalysis results reviewed with the patient today; as noted above. PVR 35 mL. Recent retroperitoneal ultrasound results reviewed with the patient today; as noted above. Discussed at length potential causes for lower urinary tract symptoms patient is experiencing. Start Flomax as discussed and prescribed. Discussed lifestyle modifications to assist with lower urinary tract symptoms. Discussed potential causes for renal cysts Discussed obtaining CT renal mass protocol for further assessment evaluation. BUN and creatinine ordered for imaging. Follow-up in 6 weeks with imaging and labs to be completed prior and PVR at next office visit; or sooner with any issues, concerns, and or questions. Orders: Orders AMB Urinalysis Automated Today Z13.9 - Encounter for screening, unspecified AMB Post Void Residual by ultrasound Today R39.12 - Poor urinary stream Creatinine Today N28.1 - Cyst of kidney, acquired CT urogram Today N28.89 - Other specified disorders of kidney and ureter Blood Urea Nitrogen Today N28.1 - Cyst of kidney, acquired Medications: New tamsulosin 0.4 mg PO BEDTIME 30 caps 3RF 30 days N40.1 - Benign prostatic hyperplasia with lower urinary tract symptoms, R35.1 - Nocturia Patient Instructions: The patient had an opportunity to ask questions regarding the treatment plan. All questions were answered. Physical exam, labs, and imaging were discussed and reviewed in detail. As well as risks, benefits, and discussion of treatment choices. No major barriers to understanding were identified. The patient expressed understanding and agreement with the above treatment plan. The patient was made aware they should contact our office by phone for worsening of their current condition, the appearance of new symptoms, or with any questions or concerns. Compliance is encouraged with any medications and follow up testing that is ordered. It is a privilege to be allowed the opportunity to participate in? your urological care.? Again, if you have any questions or concerns If you have any questions or concerns please do not hesitate to contact me. The office is [phone]. This note is constructed using voice recognition software. While every effort has been made to ensure accuracy senior clinical study manager errors may have been included. Yours sincerely, PEDRO Tinsley Coding Level of Care Code Est Pt Level 4 (56633) Diagnoses Complex renal cyst N28.1 Enlarged prostate N40.0 Weak urinary stream R39.12 Nocturia R35.1 Urinary hesitancy R39.11 CPT Codes Post Residual Void - PVR CPT Code: 43059-Akwf Void Residual by ultrasound ([id number])
== END 2024-01-10 13:55 | disposition home or self-care (01) ==
PROVIDERS: PCP Family Medicine; Visit Provider Nurse Practitioner Family
DX: N28.1 Cyst of kidney, acquired (principal); N40.0 Benign prostatic hyperplasia without lower urinary tract symptoms; R39.12 Poor urinary stream; R35.1 Nocturia; R39.11 Hesitancy of micturition
CPT/HCPCS: 99214

== ENCOUNTER → 2024-01-10 13:06 | Outpatient (BNVA) | payer MEDICARE, OTHER, SELFPAY | PROVIDERS: PCP Family Medicine; Visit Provider Nurse Practitioner Family | DX: N40.1 Benign prostatic hyperplasia with lower urinary tract symptoms (principal); R35.1 Nocturia; R39.12 Poor urinary stream; R39.11 Hesitancy of micturition; N28.1 Cyst of kidney, acquired; I25.10 Atherosclerotic heart disease of native coronary artery without angina pectoris; I25.2 Old myocardial infarction; I10 Essential (primary) hypertension; N28.89 Other specified disorders of kidney and ureter; Z79.82 Long term (current) use of aspirin | CPT/HCPCS: 51798; 81003; 99212 ==

== ENCOUNTER 2024-01-12 12:32 | Outpatient (REF) | payer MEDICARE, OTHER, SELFPAY ==
[2024-01-12 14:25] LABS: MANUAL DIFF FLAG NO
[2024-01-12 14:37] LABS: Basophils Absolute Auto 0.1 X10*3/uL (0.0-0.2); Basophils Percent Auto 1.5 % (0-2); Eosinophils Absolute Auto 0.1 X10*3/uL (0.0-0.4); Eosinophils Percent Auto 1.5 % (0-4); Hematocrit 38.6 % (42.0-52.0); Hemoglobin 12.4 g/dl (14.0-18.0); Imm Gran Abs Auto 0.02 X10*3/uL (0.00-0.03); Imm Gran Pct Auto 0.3 % (0.0-0.4); Lymphocytes Absolute Auto 1.8 X10*3/uL (1.2-4.9); Lymphocytes Percent Auto 26.1 % (20-40); Mean Corpuscular HGB Conc 32.1 g/dl (31.0-36.0); Mean Corpuscular Volume 87.1 fL (80.0-98.0); Monocytes Absolute Auto 0.5 X10*3/uL (0.1-1.2); Neutrophils Absolute Auto 4.3 x10*3/uL (2.0-8.3); Neutrophils Percent Auto 63.6 % (45-73); Platelet Count 272 X10*3/uL (160-400); Red Blood Count 4.43 X10*6/uL (4.60-5.80); White Blood Count 6.8 X10*3/uL (4.8-10.8)
[2024-01-12 15:11] LABS: Anion Gap 12 (12-20); Blood Urea Nitrogen 23 mg/dL (9-16); Calcium 9.2 mg/dL (8.4-10.2); Carbon Dioxide 26 mmol/L (22-29); Chloride 106 mmol/L (96-108); Estimated Glomerular Filt Rate > 60; Glucose Random 146 mg/dL (60-115); Iron 59 mcg/dL (45-160); Percent Iron Saturation 23 % (15-50); Potassium 4.3 mmol/L (3.3-5.1); Sodium 140 mmol/L (135-145); Total Iron Binding Capacity 254 mcg/dL (228-428); Unsaturated Iron Binding 195 ug/dL
[2024-01-12 15:37] LABS: Folate 7.3 ng/mL (> or = 4.0); Vitamin B12 1909 pg/mL (200-900)
== END 2024-01-12 12:33 | disposition home or self-care (01) ==
LOC: HO.WFDLDS 12:32
PROVIDERS: Visit Provider Family Medicine
DX: Z00.00 Encounter for general adult medical examination without abnormal findings (principal); D64.9 Anemia, unspecified; E53.8 Deficiency of other specified B group vitamins
CPT/HCPCS: 36415; 80048; 82607; 82746; 83540; 85025

== ENCOUNTER 2024-01-23 11:34 | Outpatient (AMB) | payer MEDICARE, OTHER, SELFPAY ==
[2024-01-23 11:46] VITALS: BP 122/78; PULSE 62; O2SAT 98; BMI 24.7
--- NOTE | 2024-01-23 11:46 | MHC.PC.OV ---
Vital Signs 01/23/24 11:46 Height 5 ft 10 in Weight 172 lb 4 oz BMI 24.7 BP 122/78 Blood Pressure Location Lt brachial Position Sitting Pulse 62 Pulse Source Pulse Oximeter Pulse Oximetry (%) 98 Oxygen Delivery Method Room Air Intake Visit Reasons: f/u hypertension Intake Note: Patient is following up on high blood pressure today. Patient states he was stressed and had pains in his chest and they did go away after 2 days. Allergies cat dander Allergy (Mild, Verified 01/23/24 11:50) bumps on skin, eyes and nose closes Latex, Natural Rubber Allergy (Mild, Verified 01/23/24 11:50) itchy skin No Known Drug Allergies Allergy (Unknown, Verified 01/23/24 11:50) Unknown pollen Allergy (Mild, Uncoded 01/23/24 11:50) Unknown Medication List - Last Reconciled 01/23/24 by Hector Colindres MD aspirin (Adult Aspirin Regimen) 81 mg PO DAILY atorvastatin 40 mg PO BEDTIME metoprolol succinate ER 50 mg PO DAILY 90 days pantoprazole 40 mg PO DAILY 90 days tamsulosin 0.4 mg PO BEDTIME 30 days valsartan 40 mg PO DAILY Tobacco use date assessed: 01/23/24 Dental Screening Dental Screen Date: 10/31/23 HPI f/u hypertension HPI Details 73 y/o male presents to f/u hypertension, elevated fasting blood sugar and anemia. Last A1c in August 5.4%. A1c today 01/23/24 6.1%. Labs were drawn 01/12/24. Reviewed labs with pt. Mild anemia. Blood pressure today 122/78. He is on metoprolol 50mg, valsartan 40mg daily. Pt reports chest pain - hx of CAD, [place]. He reports chest pain on and off the past few days. HPI Comments History of Present Illness Details Documentation assistance for Hector Colindres MD, was provided by Hunter Kenny, Participant Administrator on 01/23/2024 12:07 PM ONDINA. I, Dr. Colindres, have read, observed, and verified documentation. [facility] Surgical History H/O removal of cyst H/O shoulder surgery Hx of hernia repair Status post surgical removal of neoplasm of skin Hx of appendectomy Hx of cataract surgery Family History Father Heart problem Mother Heart problem Social History Housing: House Alcohol intake: current Alcohol intake frequency: a few times a month Alcohol type: beer and wine Patient Tobacco Use Status: Former Tobacco user Tobacco use type: Cigar e-Cigarette/Vaping Use: Never Used service: No Current occupational status: employed Current occupational exposures/hazards: No Cognitive needs: No Hearing needs: No Vision needs: Yes Questionnaire Thrive Questionnaire Date Thrive assessed: 05/08/23 BUDDY-7 AMB Questionnaire BUDDY-7 Date BUDDY - 7 assessed: 05/08/23 Source: Developed by Drs. Henry Tony, Angie Funes, Lito Jean-Baptiste and colleagues, with an educational kinza from [employer] Review of Systems Card Reports chest pain Physical exam (Primary Care) Vital Signs: Last Vital Signs Pulse 62 01/23/24 11:46 BP 122/78 01/23/24 11:46 Pulse Ox 98 01/23/24 11:46 Oxygen Delivery Method Room Air 01/23/24 11:46 BMI result Body Mass Index 24.7 Tobacco/Smoking Status: Tobacco use Status Tobacco use date assessed 01/23/24 01/23/24 11:54 Patient Tobacco Use Status Former Tobacco user 01/23/24 11:49 Tobacco use type Cigar 01/23/24 11:49 e-Cigarette/Vaping Use Never Used 01/23/24 11:49 Thrive Assessment: Date of Thrive Assessment Date Thrive assessed 05/08/23 01/23/24 11:49 Assessment and Plan Assessment & Plan (1) Chest pain: Code(s): R07.9 - Chest pain, unspecified Plan: Chest?pain?in?patient?with?history?of?[place]?and?coronary?artery?disease?and?stent. Patient?had?pain?for?about?2?days?often?on?but?did?not?seek?medical?attention.??This?was?about?4?days?ago.??No?current?pain. EKG:??Normal?sinus?rhythm,?left?axis?deviation,?right?bundle?branch?block,?no?Q-waves,?no?ST-T-wave?elevation/depression Will?check?labs?including?troponin?level?though?levels?may?now?be?flat?as?he?did?not?seek?attention?during?pain?4?days?ago. Will?also?check?yet?chest?x-ray. Referred?to?Cardiology Advised?patient?that?is?if?he?is?having?pain?lasting?more?than?a?few?minutes?while?at?rest,?he?should?seek?medical?attention. (2) CAD (coronary artery disease): Code(s): I25.10 - Atherosclerotic heart disease of [place] coronary artery without angina pectoris Plan: As?above,?patient?is?referred?to?Cardiology (3) Hypertension: Code(s): I10 - Essential (primary) hypertension Plan: Blood?pressure?appears?controlled.??Goal?is?less?than?130/80 Continue?current?medication (4) Elevated fasting glucose: Code(s): R73.01 - Impaired fasting glucose Plan: A1c?has?climbed?to?6.1%. Encouraged?diet?lower?in?sugars?and?starches (5) History of [place] (myocardial infarction): Code(s): I25.2 - Old myocardial infarction Plan: As?above,?patient?is?referred?to?Cardiology Reminded?him?that?he?should?seek?medical?attention?if?having?chest?pain?lasting?more?than?a?few?minutes?while?at?rest. (6) Pre-diabetes: Code(s): R73.03 - Prediabetes Plan: Worsened?A1c.??Now?in?pre?diabetes?range. Encouraged?a?diet?lower?in?sugars?and?starches Orders: Orders AMB EKG-In Office Today I25.10 - Atherosclerotic heart disease of [place] coronary artery without angina pectoris, I25.2 - Old myocardial infarction, R07.9 - Chest pain, unspecified Comprehensive Met. Panel Today R07.9 - Chest pain, unspecified Complete Blood Count Auto Diff Today R07.9 - Chest pain, unspecified, Z00.00 - Encounter for general adult medical examination without abnormal findings Troponin-I High Sensitivity Today R07.9 - Chest pain, unspecified XR chest 2V Today R07.9 - Chest pain, unspecified Referrals Cardiology Referral I25.10 - Atherosclerotic heart disease of [place] coronary artery without angina pectoris, I25.2 - Old myocardial infarction, R07.9 - Chest pain, unspecified Coding Level of Care Code Est Pt Level 4 (52282) Diagnoses Chest pain R07.9 CAD (coronary artery disease) I25.10 Hypertension I10 Elevated fasting glucose R73.01 History of [place] (myocardial infarction) I25.2 Pre-diabetes R73.03
== END 2024-01-23 12:52 | disposition home or self-care (01) ==
PROVIDERS: PCP Family Medicine; Visit Provider Family Medicine
DX: R07.9 Chest pain, unspecified (principal); I25.10 Atherosclerotic heart disease of native coronary artery without angina pectoris; I10 Essential (primary) hypertension; R73.01 Impaired fasting glucose; I25.2 Old myocardial infarction; R73.03 Prediabetes
CPT/HCPCS: 83036; 93000; 99214

== ENCOUNTER 2024-01-23 12:20 | Outpatient (REF) | payer MEDICARE, OTHER, SELFPAY ==
[2024-01-23 14:30] LABS: MANUAL DIFF FLAG NO
[2024-01-23 14:41] LABS: Basophils Absolute Auto 0.1 X10*3/uL (0.0-0.2); Basophils Percent Auto 1.6 % (0-2); Eosinophils Percent Auto 0.8 % (0-4); Hematocrit 36.1 % (42.0-52.0); Hemoglobin 11.9 g/dl (14.0-18.0); Imm Gran Abs Auto 0.01 X10*3/uL (0.00-0.03); Imm Gran Pct Auto 0.2 % (0.0-0.4); Lymphocytes Absolute Auto 1.6 X10*3/uL (1.2-4.9); Lymphocytes Percent Auto 30.7 % (20-40); Mean Corpuscular Hemoglobin 28.2 pg (27.0-33.0); Mean Corpuscular Volume 85.5 fL (80.0-98.0); Mean Platelet Volume 11.2 fL (9.4-12.4); Monocytes Absolute Auto 0.4 X10*3/uL (0.1-1.2); Monocytes Percent Auto 6.8 % (2-11); Neutrophils Absolute Auto 3.1 x10*3/uL (2.0-8.3); Neutrophils Percent Auto 59.9 % (45-73); Platelet Count 252 X10*3/uL (160-400); Red Blood Count 4.22 X10*6/uL (4.60-5.80); Red Cell Distribution Width 13.1 % (11.0-16.0); White Blood Count 5.2 X10*3/uL (4.8-10.8)
[2024-01-23 15:29] LABS: Alanine Aminotransferase 20 U/L (0-40); Alkaline Phosphatase 62 U/L (39-117); Anion Gap 10 (12-20); Aspartate Amino Transferase 23 U/L (5-37); Bilirubin Total 0.8 mg/dL (0.0-1.0); Blood Urea Nitrogen 20 mg/dL (9-16); Calcium 8.7 mg/dL (8.4-10.2); Carbon Dioxide 23 mmol/L (22-29); Chloride 109 mmol/L (96-108); Estimated Glomerular Filt Rate > 60; Glucose Random 100 mg/dL (60-115); Potassium 3.8 mmol/L (3.3-5.1); Sodium 138 mmol/L (135-145); Total Protein 6.5 g/dL (6.5-8.0)
[2024-01-23 15:35] LABS: Troponin-I High Sensitivity < 2.7 ng/L (<3.5-35.0)
[2024-01-24 08:25] LABS: HBS Num1 0.56 mIU/mL (0-7.99); HBc Num1 0.09 S/CO (0.00-0.79); HBsAGNum1 0.35 S/CO (0.00-0.99); Hepatitis B Core Antibody Nonreactive (Nonreactive); Hepatitis B Surface Antigen Negative (Negative); ~HepC Num1 0.09 S/CO (0.00-0.79); ~Hepatitis B Surface Antibody NONREACTIVE (Nonreactive); ~Hepatitis C Antibody Nonreactive (Nonreactive)
== END 2024-01-23 12:21 | disposition home or self-care (01) ==
LOC: HO.WFDLDS 12:20
PROVIDERS: Referring Provider Nurse Practitioner Family; Visit Provider Family Medicine
DX: Z13.89 Encounter for screening for other disorder (principal)
CPT/HCPCS: 36415; 80053; 84484; 85025; 86704; 86706; 86803; 87340

== ENCOUNTER 2024-01-23 13:53 | Outpatient (REF) | payer MEDICARE, OTHER, SELFPAY ==
--- NOTE | ~2024-01-23 | XR_ITS ---
EXAMINATION: XR CHEST CLINICAL INFORMATION: Chest pain, unspecified. COMPARISON: None available. TECHNIQUE: 2 views of the chest were obtained. FINDINGS: There is no gross pneumothorax. Heart size is normal. Degenerative changes in the thoracic spine. No pleural effusion. Mild dextroscoliosis of the thoracic spine. No focal consolidation to suggest pneumonia. XR/XR chest 2V IMPRESSION: No evidence of pneumonia.
== END 2024-01-23 13:54 | disposition home or self-care (01) ==
LOC: HO.XRAY 13:53
PROVIDERS: PCP Family Medicine; Visit Provider Family Medicine
DX: R07.9 Chest pain, unspecified (principal)
CPT/HCPCS: 36415; 71046; 80053; 84484; 85025; 86704; 86706; 86803; 87340

== ENCOUNTER 2024-01-30 13:20 | Outpatient (AMB) | payer MEDICARE, OTHER, SELFPAY ==
--- NOTE | 2024-01-30 12:47 | A.OFFPC_ITS ---
Vital Signs 01/30/24 13:22 Height 5 ft 10 in Weight 172 lb 8 oz BMI 24.7 BP 122/70 Blood Pressure Location Lt brachial Position Sitting Pulse 63 Pulse Source Pulse Oximeter Pulse Oximetry (%) 97 Oxygen Delivery Method Room Air Intake Visit Reasons: f/u chest x-ray via telemedicine Intake Note: Patient is here for follow up on chest x-ray today. Allergies cat dander Allergy (Mild, Verified 01/30/24 13:23) bumps on skin, eyes and nose closes Latex, Natural Rubber Allergy (Mild, Verified 01/30/24 13:23) itchy skin No Known Drug Allergies Allergy (Unknown, Verified 01/30/24 13:23) Unknown pollen Allergy (Mild, Uncoded 01/30/24 13:23) Unknown Medication List - Last Reconciled 01/30/24 by Hector Colindres MD aspirin (Adult Aspirin Regimen) 81 mg PO DAILY atorvastatin 40 mg PO BEDTIME metoprolol succinate ER 50 mg PO DAILY 90 days pantoprazole 40 mg PO DAILY 90 days tamsulosin 0.4 mg PO BEDTIME 30 days valsartan 40 mg PO DAILY Tobacco use date assessed: 01/30/24 Fall risk assessment: No Falls in past year Last assessed Fall Risk: 01/30/24 Dental Screening Dental Screen Date: 10/31/23 HPI f/u chest x-ray via telemedicine HPI Details 73 y/o male presents to f/u chest x-ray. Hx of CAD and [place] - had chest pain on and off. He has an appt. with Cardiology in April. Chest x-ray 01/23/24 was fine. Labs were drawn 01/23/24. A1c 6.1%. Mild normocytic anemia. He denies any more chest pain. HPI Comments History of Present Illness Details Documentation assistance for Hector Colindres MD, was provided by Hunter Kenny, Gas Cutter on 01/30/2024 1:33 PM EST. I, Dr. Colindres, have read, observed, and verified documentation. [facility] Surgical History H/O removal of cyst H/O shoulder surgery Hx of hernia repair Status post surgical removal of neoplasm of skin Hx of appendectomy Hx of cataract surgery Family History Father Heart problem Mother Heart problem Social History Housing: House Alcohol intake: current Alcohol intake frequency: a few times a month Alcohol type: beer and wine Patient Tobacco Use Status: Former Tobacco user Tobacco use type: Cigar e-Cigarette/Vaping Use: Never Used service: No Current occupational status: employed Current occupational exposures/hazards: No Cognitive needs: No Hearing needs: No Vision needs: Yes Questionnaire Thrive Questionnaire Date Thrive assessed: 05/08/23 BUDDY-7 AMB Questionnaire BUDDY-7 Date BUDDY - 7 assessed: 05/08/23 Source: Developed by Drs. Henry Tony, Angie Funes, Lito Jean-Baptiste and colleagues, with an educational kinza from [employer]. Review of Systems Const Denies chills, Denies fatigue, Denies fever(s), Denies headache(s) and Denies weakness ENT Denies dizziness and Denies headache(s) Card Denies dyspnea Resp Denies cough, Denies dyspnea, Denies wheezing and Denies other (shortness of breath) Musc Denies numbness and Denies tingling Neuro Denies dizziness, Denies headache(s), Denies numbness, Denies tingling and Denies weakness Psych Denies anxiety and Denies depression Endo Denies fatigue Aller/Immun Denies wheezing Physical exam (Primary Care) Vital Signs: Last Vital Signs Pulse 63 01/30/24 13:22 BP 122/70 01/30/24 13:22 Pulse Ox 97 01/30/24 13:22 Oxygen Delivery Method Room Air 01/30/24 13:22 BMI result Body Mass Index 24.7 Tobacco/Smoking Status: Tobacco use Status Tobacco use date assessed 01/30/24 01/30/24 13:27 Patient Tobacco Use Status Former Tobacco user 01/30/24 12:47 Tobacco use type Cigar 01/30/24 12:47 e-Cigarette/Vaping Use Never Used 01/30/24 12:47 Thrive Assessment: Date of Thrive Assessment Date Thrive assessed 05/08/23 01/30/24 12:47 Const General: well developed; No acute distress Nutritional Appearance: well nourished Orientation/consciousness: patient oriented x3 HENMT Head: Yes normocephalic and Yes atraumatic Eyes General: appearance normal, both eyes and all related structures Pupils: Equal, round and reactive pupils present EOM: EOMs intact bilaterally Resp Effort & Inspection: normal respiratory effort Auscultation: clear to auscultation bilaterally Cardio Rate: regular rate Rhythm: regular rhythm Heart sounds: S1 normal heart sound present, S2 normal heart sound present, no gallops, no murmurs and no rubs Neuro General: patient oriented x3 and gait normal Cranial nerves: Yes Equal, round and reactive pupils present Psych Affect: normal affect Assessment and Plan Assessment & Plan (1) Chest pain: Code(s): R07.9 - Chest pain, unspecified Plan: Chest?pain?x2?days which?occurred?4?days?prior?to?our?last?visit. Workup?was?essentially?unremarkable.??Patient?does?have?history?of?coronary?nils ry?disease?and?[place]?with?stent?so?I?referred?him?to?Cardiology. He?has?an?appointment?with ?cardiology?in?April.??He?has?had?no?further?chest?pain?so?he?can?wait?to?see?the ?timber bucker?in?April.??I?told?him?to?seek?medical?attention?if?he?has?anymore?c hest?pain. (2) Mild anemia: Code(s): D64.9 - Anemia, unspecified Plan: Likely?multifactorial Will?follow (3) Pre-diabetes: Code(s): R73.03 - Prediabetes Plan: A1c?6.1%. Encouraged?a?diet?low?in?sugars?and?starches Give n?patient's?cardiac?disease,?we?may?want?to?discuss?starting?medication?sooner?r ather?than?later. Coding Level of Care Code Est Pt Level 4 (81988) Diagnoses Chest pain R07.9 Mild anemia D64.9 Pre-diabetes R73.03
[2024-01-30 13:22] VITALS: BP 122/70; PULSE 63; O2SAT 97; BMI 24.7
== END 2024-01-30 13:44 | disposition home or self-care (01) ==
LOC: HO.HMGFM 13:20
PROVIDERS: PCP Family Medicine; Visit Provider Family Medicine
DX: R07.9 Chest pain, unspecified (principal); D64.9 Anemia, unspecified; R73.03 Prediabetes
CPT/HCPCS: 99214

== ENCOUNTER 2024-02-08 09:44 | Outpatient (AMB) | payer MEDICARE, OTHER, SELFPAY ==
--- NOTE | 2024-02-08 09:57 | MHC.PC.OV ---
Vital Signs 02/08/24 09:58 Height 5 ft 10 in Weight 172 lb 6 oz BMI 24.7 BP 128/64 Blood Pressure Location Rt brachial Position Sitting Respiration 13 Pulse 56 Pulse Source Pulse Oximeter Temp 97.5 F Temp Source Temporal Artery Scan Pulse Oximetry (%) 99 Oxygen Delivery Method Room Air Intake Visit Reasons: ongoing kidney pain Intake Note: Patient states that he has been having trouble sleeping due to the pain and has gone without adequate sleep for almost 6 days. Patient states it feels like someone is punching him in his kidneys. Quality Assurance Monitor Body Required: No Accompanied by: Self / Same As Patient Allergies cat dander Allergy (Mild, Verified 02/08/24 10:03) bumps on skin, eyes and nose closes Latex, Natural Rubber Allergy (Mild, Verified 02/08/24 10:03) itchy skin No Known Drug Allergies Allergy (Unknown, Verified 02/08/24 10:03) Unknown pollen Allergy (Mild, Uncoded 01/30/24 13:23) Unknown Medication List - Last Reconciled 02/08/24 by Hector Colindres MD aspirin (Adult Aspirin Regimen) 81 mg PO DAILY atorvastatin 40 mg PO BEDTIME metoprolol succinate ER 50 mg PO DAILY 90 days pantoprazole 40 mg PO DAILY 90 days tamsulosin 0.4 mg PO BEDTIME 30 days valsartan 40 mg PO DAILY Tobacco use date assessed: 01/30/24 Fall risk assessment: 2 + Falls in past year Last assessed Fall Risk: 02/08/24 Dental Screening Dental Screen Date: 02/08/24 Did you have a dental visit in the last 12 months?: Yes Did you have a dental problem in the last 6 months where you did not have access to dental care?: No Was dental information given to patient?: Patient has dentist HPI ongoing kidney pain HPI Details 73 y/o male presents with complaints of?low?back?pain. Patient?was?splitting?wood?last?week Later?he?says?he?had?a?sensation?that?felt?like?a?muscle?strain?and?afterwards?stopped?feeling?like?a?muscle?strain?and?was?pain?across?his?low?back?and?radiates?downward?towards?his?hips. He?has?some?concerns?about?his?kidneys?because?has?upcoming?workup?for?renal?cyst?and?stones. No?dysuria.??No?frequency.??No?fevers?or?chills. No?significant?groin?or?penile?pain Pain?is?positional?and?worse?when?lying?down?or?when?moving. [facility] Medical History No pertinent past medical history Surgical History H/O removal of cyst H/O shoulder surgery Hx of hernia repair Status post surgical removal of neoplasm of skin Hx of appendectomy Hx of cataract surgery Family History Father Heart problem Mother Heart problem Social History (Updated 02/08/24 @ 10:06 by SAHARA Lockhart) Household Members: Family Both parents involved: No Caregiver staying overnight: No Housing: House Are you a primary patient care provider to a significant other at home: No Do you presently have visiting nurse or other home services: No 75 years or older and lives alone: No Alcohol intake: current Alcohol intake frequency: a few times a month Alcohol type: beer and wine Patient Tobacco Use Status: Former Tobacco user Tobacco use type: Cigar e-Cigarette/Vaping Use: Never Used service: No Current occupational status: employed 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 Henry Tony, Angie Funes, Lito Jean-Baptiste and colleagues, with an educational kinza from [employer]. Review of Systems Const Denies chills, Denies fatigue, Denies fever(s), Denies headache(s) and Denies weakness ENT Denies dizziness and Denies headache(s) Card Denies dyspnea Resp Denies cough, Denies dyspnea, Denies wheezing and Denies other (shortness of breath) Musc Denies numbness and Denies tingling Neuro Denies dizziness, Denies headache(s), Denies numbness, Denies tingling and Denies weakness Psych Denies anxiety and Denies depression Endo Denies fatigue Aller/Immun Denies wheezing Physical exam (Primary Care) Vital Signs: Last Vital Signs Temp 97.5 F 02/08/24 09:58 Pulse 56 02/08/24 09:58 Resp 13 02/08/24 09:58 BP 128/64 02/08/24 09:58 Pulse Ox 99 02/08/24 09:58 Oxygen Delivery Method Room Air 02/08/24 09:58 BMI result Body Mass Index 24.7 Tobacco/Smoking Status: Tobacco use Status Tobacco use date assessed 01/30/24 02/08/24 10:06 Patient Tobacco Use Status Former Tobacco user 02/08/24 10:06 Tobacco use type Cigar 02/08/24 10:06 e-Cigarette/Vaping Use Never Used 02/08/24 10:06 Thrive Assessment: Date of Thrive Assessment Date Thrive assessed 05/08/23 02/08/24 10:06 Const General: well developed; No acute distress Nutritional Appearance: well nourished Orientation/consciousness: patient oriented x3 HENMT Head: Yes normocephalic and Yes atraumatic Eyes General: appearance normal, both eyes and all related structures Pupils: Equal, round and reactive pupils present EOM: EOMs intact bilaterally Resp Effort & Inspection: normal respiratory effort Back/Spine/Pelvis Other: Pain?across?low?back?at?level?of?L2?to?L5 Pain?with?palpation?of?musculature.??Mild?modification?of?pain?with?flexion?extension No?significant?increase?in?pain?with?percussion Neuro General: patient oriented x3 and gait normal Cranial nerves: Yes Equal, round and reactive pupils present Psych Affect: normal affect Assessment and Plan Assessment & Plan (1) Low back pain: Code(s): M54.50 - Low back pain, unspecified Plan: This?appears?to?be?musculoskeletal. Will?give?him?naproxen?which?he?will?take?b.i.d. Will?also?give?him?a?muscle?relaxer?that?he?can?take?b.i.d.?but?recommended?he?take?at?bedtime?and?can?also?take?once?more?per?day?if?pain?is?severe.??Avoid?operating?machinery?or?driving?a?car?or?using?with?anything?else?that?might?cause?sedation?or ?incoordination. Ice/heat Patient?had?concerns?regarding?kidneys?and?he?has?upcoming?CT?scan?of?the?kidneys?and?ongoing?workup. Coding Level of Care Code Est Pt Level 3 (47699) Diagnoses Low back pain M54.50
[2024-02-08 09:58] VITALS: BP 128/64; PULSE 56; RESP 13; TEMP 36.4; O2SAT 99; BMI 24.7
== END 2024-02-08 10:43 | disposition home or self-care (01) ==
PROVIDERS: PCP Family Medicine; Visit Provider Family Medicine
DX: M54.50 Low back pain, unspecified (principal)
CPT/HCPCS: 99213

== ENCOUNTER 2024-02-12 11:55 | Observation (INO) | payer MEDICARE, OTHER, SELFPAY ==
[2024-02-12] VITALS (12 sets, daily range): BP systolic 155–192; BP diastolic 58–85; PULSE 49–60; RESP 15–18; TEMP 36.1–36.6; O2SAT 96–100; BMI 24.7
--- NOTE | ~2024-02-12 | CT_ITS ---
EXAMINATION: CT angio head neck stroke CLINICAL INFORMATION: Dizziness. COMPARISON: CT head 02/12/2024. TECHNIQUE: Food Science Technician images were obtained. A CT angiogram of the head and neck was performed in the arterial phase after the intravenous administration of 50 mL Omnipaque 350. Pre and delayed postcontrast images of the head were also obtained. 3D images were processed on an independent workstation under concurrent supervision. Arterial stenoses are measured in accordance with NASCET criteria or similar method if applicable. This CT examination was performed using dose optimization techniques as appropriate, including one or more of the following: Automated exposure control, iterative reconstruction, and adjustment of technique factors (mA and/or kVp) according to patient size (this includes techniques or standardized protocols for targeted exams where dose is matched to indication/reason for exam). Fleischner Society criteria for the followup of incidental pulmonary nodules was implemented if appropriate. Total exam dose-length product 1503 mGy-cm FINDINGS: Head: Postcontrast images reveal no abnormal intracranial mass or enhancement. There is no intracranial mass effect or midline shift. Lateral and third ventricles are normal. No hydrocephalus. Hoang-white matter differentiation is preserved and there is no evidence of acute territorial infarct. The calvarium and skull base are intact. Mastoid air cells and middle ear cavities are well aerated. No active paranasal sinus disease. CT angiogram neck: Scattered atheromatous calcification involves the aortic arch apex. Origins of the major aortic branches are widely patent., Carotid arteries are patent. Eccentric atheromatous plaque is visualized at both carotid bifurcations. No stenosis of the extracranial internal carotid arteries. The cervical segments of the vertebral arteries are patent. CT angiogram head: Atheromatous calcification involves the cavernous segments of both internal carotid arteries. Intracranial internal carotid arteries are otherwise patent. Intradural vertebral artery segments and basilar artery are patent. Anterior, middle, and posterior cerebral complexes are normal. No intracranial large vessel occlusion. No identifiable aneurysm or high flow vascular lesion. The timing of contrast injection provides adequate opacification of the dural venous sinuses which are grossly patent. Other: Soft tissues of neck including the thyroid gland are normal. Grossly no pathologically enlarged cervical lymph nodes. Lung apices are clear. No acute osseous finding. Specifically no worrisome lytic or blastic osseous lesion. CT/CT angio head neck stroke IMPRESSION: Unremarkable examination in that there is no evidence of acute territorial infarct or hemorrhage. No abnormal intracranial mass or enhancement. There is no stenosis of the cervical carotid or vertebral arteries. No intracranial large vessel occlusion.
--- NOTE | ~2024-02-12 | CT_ITS ---
EXAMINATION: CT head for stroke CLINICAL INFORMATION: Reason for Exam ataxia COMPARISON: None. TECHNIQUE: Contiguous axial imaging was performed from the skull base to vertex without intravenous contrast. Sagittal and coronal reformatted images were obtained. This CT examination was performed using dose optimization techniques as appropriate, variously including the following: * Automated exposure control * Adjustment of mA and/or kV according to patient size (this includes techniques or standardized protocols for targeted exams where dose is matched to indication/reason for exam; i.e. extremities or head) Use of iterative reconstruction technique DLP: 701.62 mGy-cm mGy-cm FINDINGS: Mild global cerebral volume loss. There is no abnormal attenuation within the brain parenchyma. No territorial loss of blackmon-white differentiation. No acute intracranial hemorrhage or extra-axial fluid collection. No mass lesion, significant mass effect, or herniation pattern. The orbits are grossly normal. Mild mucosal disease in the maxillary sinuses. Leftward nasal septal deviation with leftward bony spur impinging upon the base of the left inferior nasal turbinate. Osseous structures are intact. CT/CT head for stroke IMPRESSION: No acute intracranial abnormality. Specifically, no CT evidence of acute intracranial hemorrhage, significant mass effect, hydrocephalus, or large territorial infarction.
--- NOTE | ~2024-02-12 | MR_ITS ---
EXAMINATION: MR BRAIN WITHOUT CONTRAST CLINICAL INFORMATION: Dizziness. COMPARISON: CTA head and neck from 02/12/2024. TECHNIQUE: MRI of the brain was obtained using routine sequences without contrast. FINDINGS: Mildly motion degraded exam. No focal restricted diffusion is demonstrated to suggest acute or subacute cerebral ischemia. No evidence of acute or chronic hemorrhagic products on heme-sensitive imaging. Scattered periventricular and deep white matter T2 FLAIR hyperintensities consistent with mild underlying microangiopathy. Proportional prominence of the ventricles and sulcal spaces without evidence of obstructive hydrocephalus. No abnormal mass effect. No midline shift. Mild expansion of the sella turcica with flattening of the pituitary gland. Normal positioning of the cerebellar tonsils. Normal arterial and venous vascular flow voids are present. Normal, homogeneous marrow signal. Mild mucosal thickening of the paranasal sinuses. Mild leftward nasal septal deviation. No signal abnormalities within the mastoids. Left-sided lens extraction. MR/MR head/brain wo con IMPRESSION: 1. No acute intracranial abnormalities. 2. Mild underlying microangiopathy and generalized cerebral volume loss.
--- NOTE | 2024-02-12 12:22 | ECG_ITS ---
Test Reason : DIZZINESS Blood Pressure : / mmHG Vent. Rate : 056 BPM Atrial Rate : 056 BPM P-R Int : 190 ms QRS Dur : 132 ms QT Int : 436 ms P-R-T Axes : 062 -27 008 degrees QTc Int : 420 ms Sinus bradycardia Right bundle branch block Abnormal ECG No previous ECGs available Referred By: Brittany Piedra Electronically Signed By:Omi Escobar
--- NOTE | 2024-02-12 13:47 | ED.GENADULT ---
HPI - General Adult General Chief complaint: Dizziness Stated complaint: SEVERE DIZZINESS,UNSTEADY ON FEET PER EMS Time Seen by Provider: 02/12/24 13:33 History of Present Illness HPI narrative: The patient is a 73-year-old male with a history of coronary artery disease. He has a history of an RI and has a coronary stent. Over the last 3 or 4 days the patient has had gradually worsening dizziness that interferes with his ability to walk. He describes a room spinning dizziness that he thought might be vertigo. This is also been associated with a worsening headache over the last 3-4 days. He has had no difficulty speaking. He has had no unilateral weakness. He says that his symptoms were mild for the 1st 2 or 3 days. He was not doing very badly last night when he went to bed. This morning he woke up at around 05:00 and as soon as he sat up he felt very dizzy and felt that he was having significant difficulty walking today compared to yesterday. 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 He drove himself to his restaurant at around 08:30. He says that he had to drive very slowly because he felt he was unsteady while driving. After arriving at work his staff members were concerned about his symptoms. They took his blood pressure. It was elevated. They called an ambulance and he was brought to the hospital. Related Data Home Medications ?Medication ?Instructions ?Recorded ?Confirmed aspirin 81 mg tablet,delayed 81 mg PO DAILY 05/08/23 02/08/24 release (Adult Aspirin Regimen) atorvastatin 40 mg tablet 40 mg PO BEDTIME 10/24/23 02/08/24 valsartan 40 mg tablet 40 mg PO DAILY 10/24/23 02/08/24 Previous Rx's ?Medication ?Instructions ?Recorded pantoprazole 40 mg tablet,delayed 40 mg PO DAILY 90 days #90 tabs 08/22/23 release metoprolol succinate 50 mg 50 mg PO DAILY 90 days #90 tabs 08/30/23 tablet,extended release 24 hr tamsulosin 0.4 mg capsule 0.4 mg PO BEDTIME 30 days #30 caps 01/10/24 Allergies Allergy/AdvReac Type Severity Reaction Status Date / Time cat dander Allergy Mild bumps on Verified 02/12/24 12:27 skin, eyes and nose closes Latex, Natural Rubber Allergy Mild itchy skin Verified 02/12/24 12:27 No Known Drug Allergies Allergy Unknown Unknown Verified 02/12/24 12:27 pollen Allergy Mild Unknown Uncoded 02/12/24 12:27 [facility] Past Medical History Medical History No pertinent past medical history Surgical History H/O removal of cyst H/O shoulder surgery Hx of hernia repair Status post surgical removal of neoplasm of skin Hx of appendectomy Hx of cataract surgery Family History Family History Father Heart problem Mother Heart problem Social History Social History (Updated 02/08/24 @ 10:06 by SAHARA Lockhart) Household Members: Family Housing: House Are you a primary insurance healthcare consultant to a significant other at home: No Do you presently have visiting nurse or other home services: No Alcohol intake: current Alcohol intake frequency: a few times a month Alcohol type: beer and wine Patient Tobacco Use Status: Former Tobacco user Tobacco use type: Cigar e-Cigarette/Vaping Use: Never Used Advance Directives: No Advance Directives Information Provided: Yes service: No Current occupational status: employed 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 [employer] Current occupational exposures/hazards: No Cognitive needs: No Hearing needs: No Vision needs: Yes Physical Exam ED Vital Signs: Vital Signs - 24 hr 02/12/24 12:22 02/12/24 12:25 02/12/24 12:32 Temperature 97.1 F 97.3 F Pulse Rate 49 L 53 53 Respiratory Rate 18 18 Blood Pressure 171/77 H 171/77 H Pulse Oximetry 99 99 Oxygen Delivery Method Room Air Room Air 02/12/24 12:33 02/12/24 12:33 02/12/24 14:00 Temperature 97.1 F Pulse Rate 59 56 49 L Respiratory Rate 18 Blood Pressure 171/85 H 164/79 H Pulse Oximetry 99 Oxygen Delivery Method Room Air BMI result Body Mass Index 24.7 Const Other: The patient is awake and alert. He is pleasant and cooperative. He looks somewhat fatigued but not obviously acutely ill and does not display any obvious neurological deficit. However he did seem to feel dizzy when he changed positions. HENMT Other: No facial asymmetry. Tongue is midline. Mucous membranes moist. Eyes Other: Extraocular movements are intact. I did not appreciate any nystagmus. Visual rodriguez are intact to confrontation. Neck Other: No JVD, the neck is supple Resp Effort & Inspection: normal respiratory effort Auscultation: clear to auscultation bilaterally Cardio Rate: regular rate Rhythm: regular rhythm Heart sounds: S1 normal heart sound present and S2 normal heart sound present GI Other: Abdomen is soft and nontender Skin Other: Skin is dry and unremarkable Neuro Other: The patient is awake and alert with a normal mental status. He is appropriately oriented and can tell me his age and the month. Eye movements are intact. Visual rodriguez are intact. The face is symmetrical. Speech is clear. There is no dysarthria or aphasia. Strength is intact in all 4 extremities. There is no pronator drift. Finger-nose is normal. Heel-robles is normal. However his gait was mildly wide and somewhat unsteady. He says this is very different in his normal gait. The patient is NIH stroke scale is 0 but NIH stroke scale does not account for gait. He has a gait abnormality. Medications Administered Discontinued Medications Generic Name Dose Route Start Last Admin Trade Name Freq PRN Reason Stop Dose Admin Aspirin 325 mg 02/12/24 15:18 02/12/24 15:39 Aspirin 325 Mg Tablet PO 02/12/24 15:19 325 mg ONCE ONE Administration Sodium Chloride 1,000 mls @ 999 mls/hr 02/12/24 15:30 02/12/24 15:39 Ns IV 02/12/24 16:30 999 mls/hr .Q1H1M JOVANNY Administration Iohexol 100 ml 02/12/24 15:02 02/12/24 15:02 Iohexol 350 Mg/Ml 100 Ml Infus..Btl IV 02/12/24 15:03 60 ml ONCE ONE Administration Meclizine HCl 25 mg 02/12/24 15:18 02/12/24 15:38 Meclizine Hcl 25 Mg Tablet PO 02/12/24 15:19 25 mg ONCE ONE Administration Medical Decision Making Medical Decision Making MDM Narrative: The patient is a 73-year-old male with a history of coronary disease and a previous RI but who was ordinarily quite functional and active and 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 Presents with a dizziness syndrome. He says he had some mild symptoms for 2 or 3 days with much more severe symptoms this morning from the time he woke up at around 7 AM. He came to the hospital approximately 5 hours after waking. Since he woke up with the symptoms of dizziness and unsteadiness his last known well time was yesterday evening when he went to bed at around 22:00. He is outside the window for consideration of thrombolytic therapy. Additionally he has an NIH stroke scale of 0. However he does have an abnormal gait which is not measured by the NIH stroke scale. He describes a room spinning dizziness which is worse with position changes but which does not entirely resolve when he is not moving. It is therefore difficult to ascribe this to a positional vertigo syndrome. The patient has been given a L of IV normal saline, a dose of aspirin, and a dose of oral meclizine. He continues to have a gait abnormality. Given his history of vascular disease, the absence of nystagmus, the absence of resolution of his symptoms when he is holding still, and the degree of difficulty walking I think keeping him in the hospital overnight for an MRI to ensure this is not a stroke would be prudent. Lab Data 02/12/24 14:19 02/12/24 14:20 Labs: Lab Results 02/12/24 02/12/24 02/12/24 Range/Units 14:19 14:20 15:42 WBC 6.3 (4.8-10.8) X10*3/uL RBC 4.20 L (4.60-5.80) X10*6/uL Hgb 12.1 L (14.0-18.0) g/dl Hct 36.4 L (42.0-52.0) % MCV 86.7 (80.0-98.0) fL MCH 28.8 (27.0-33.0) pg MCHC 33.2 (31.0-36.0) g/dl RDW 13.0 (11.0-16.0) % Plt Count 250 (160-400) X10*3/uL MPV 11.1 (9.4-12.4) fL Immature Gran % (Auto) 0.3 (0.0-0.4) % Neut % (Auto) 76.6 H (45-73) % Lymph % (Auto) 18.2 L (20-40) % [place] % (Auto) 3.5 (2-11) % Eos % (Auto) 0.3 (0-4) % Baso % (Auto) 1.1 (0-2) % Lymph # (Auto) 1.2 (1.2-4.9) X10*3/uL [place] # (Auto) 0.2 (0.1-1.2) X10*3/uL Eos # (Auto) 0.0 (0.0-0.4) X10*3/uL Baso # (Auto) 0.1 (0.0-0.2) X10*3/uL Abs Immat Gran (auto) 0.02 (0.00-0.03) X10*3/uL Absolute Neuts (auto) 4.8 (2.0-8.3) x10*3/uL Absolute Nucleated RBC 0.000 (0.0-0.012) X10*3/uL Nucleated RBC % (auto) 0.0 (0.0-0.2) /100WBC PT 12.4 (11.1-13.3) SEC INR 1.0 (0.9-1.1) APTT 29.3 (26.0-36.8) SEC Sodium 138 (135-145) mmol/L Potassium 4.5 (3.3-5.1) mmol/L Chloride 108 (96-108) mmol/L Carbon Dioxide 25 (22-29) mmol/L Anion Gap 10 L (12-20) BUN 22 H (9-16) mg/dL Creatinine 0.79 (0.5-1.4) mg/dL Estim Creat Clear Calc 88.5 Estimated GFR > 60 Random Glucose 118 H (60-115) mg/dL Calcium 9.2 (8.4-10.2) mg/dL Magnesium 1.9 (1.6-2.6) mg/dL Total Bilirubin 0.7 (0.0-1.0) mg/dL AST 32 (5-37) U/L ALT 22 (0-40) U/L Alkaline Phosphatase 57 (39-117) U/L Troponin I High Sens 3.3 (<3.5-35.0) ng/L Total Protein 6.5 (6.5-8.0) g/dL Albumin 3.9 (3.5-5.0) g/dL Urine Color Yellow Urine Appearance Clear Urine pH 8.5 (5.0-9.0) Ur Specific [place] >= 1.030 H (1.005-1.025) Urine Protein Negative (Neg-Trace) mg/dL Urine Glucose (UA) Negative (Negative) mg/dL Urine Ketones Negative (Negative) mg/dL Urine Blood Negative (Negative) Urine Nitrite Negative (Negative) Ur Leukocyte Esterase Negative (Negative) Influenza Type A (PCR) NEGATIVE (Negative) Influenza Type B (PCR) NEGATIVE (Negative) RSV RNA Qual (PCR) NEGATIVE (Negative) SARS-CoV-2 RNA (RT-PCR) NEGATIVE (Negative) Independent Interpretation I performed an independent interpretation of an: EKG Interpretation: EKG at 12:57 shows sinus bradycardia 56 beats per minute. There is a right bundle branch block. No definite acute ischemic changes. No old EKGs available for comparison Discharge Plan Discharge Prescriptions: No Action pantoprazole 40 mg tablet,delayed release (DR/EC) 40 mg PO DAILY 90 Days Qty: 90 2RF metoprolol succinate 50 mg tablet extended release 24 hr 50 mg PO DAILY 90 Days Qty: 90 2RF aspirin [Adult Aspirin Regimen] 81 mg tablet,delayed release (DR/EC) 81 mg PO DAILY atorvastatin 40 mg tablet 40 mg PO BEDTIME valsartan 40 mg tablet 40 mg PO DAILY tamsulosin 0.4 mg capsule 0.4 mg PO BEDTIME 30 Days Qty: 30 3RF Print Language: Persian
[2024-02-12 14:24] LABS: MANUAL DIFF FLAG NO
[2024-02-12 14:38] LABS: Basophils Absolute Auto 0.1 X10*3/uL (0.0-0.2); Basophils Percent Auto 1.1 % (0-2); Eosinophils Percent Auto 0.3 % (0-4); Hematocrit 36.4 % (42.0-52.0); Hemoglobin 12.1 g/dl (14.0-18.0); Imm Gran Abs Auto 0.02 X10*3/uL (0.00-0.03); Imm Gran Pct Auto 0.3 % (0.0-0.4); Lymphocytes Absolute Auto 1.2 X10*3/uL (1.2-4.9); Lymphocytes Percent Auto 18.2 % (20-40); Mean Corpuscular HGB Conc 33.2 g/dl (31.0-36.0); Mean Corpuscular Hemoglobin 28.8 pg (27.0-33.0); Mean Corpuscular Volume 86.7 fL (80.0-98.0); Mean Platelet Volume 11.1 fL (9.4-12.4); Monocytes Absolute Auto 0.2 X10*3/uL (0.1-1.2); Monocytes Percent Auto 3.5 % (2-11); Neutrophils Absolute Auto 4.8 x10*3/uL (2.0-8.3); Neutrophils Percent Auto 76.6 % (45-73); Platelet Count 250 X10*3/uL (160-400); White Blood Count 6.3 X10*3/uL (4.8-10.8)
[2024-02-12 14:44] LABS: Alanine Aminotransferase 22 U/L (0-40); Albumin Level 3.9 g/dL (3.5-5.0); Alkaline Phosphatase 57 U/L (39-117); Anion Gap 10 (12-20); Aspartate Amino Transferase 32 U/L (5-37); Bilirubin Total 0.7 mg/dL (0.0-1.0); Blood Urea Nitrogen 22 mg/dL (9-16); Calcium 9.2 mg/dL (8.4-10.2); Carbon Dioxide 25 mmol/L (22-29); Chloride 108 mmol/L (96-108); Creatinine Clr Calc Pharmacy 88.5; Estimated Glomerular Filt Rate > 60; Glucose Random 118 mg/dL (60-115); Magnesium 1.9 mg/dL (1.6-2.6); Potassium 4.5 mmol/L (3.3-5.1); Sodium 138 mmol/L (135-145); Total Protein 6.5 g/dL (6.5-8.0)
[2024-02-12 14:45] LABS: Troponin-I High Sensitivity 3.3 ng/L (<3.5-35.0)
[2024-02-12 15:02] LABS: Prothrombin Time 12.4 SEC (11.1-13.3)
[2024-02-12] MEDS: iohexoL 350 MG/ML 100 ML INFUS..BTL IV (15:02)
[2024-02-12 15:05] LABS: Partial Thromboplastin Time 29.3 SEC (26.0-36.8)
[2024-02-12 15:20] LABS: Influenza A PCR NEGATIVE (Negative); Influenza B PCR NEGATIVE (Negative); Resp Syncy Virus RNA Qual PCR NEGATIVE (Negative); SARS COV2 PCR INHOUSE NEGATIVE (Negative)
[2024-02-12] MEDS: Meclizine HCl 25 MG TABLET PO (15:38)
[2024-02-12] MEDS: Aspirin 325 MG TABLET PO (15:39)
[2024-02-12] MEDS: 0.9 % Sodium Chloride 1,000 ML 999 ML IV (15:39)
[2024-02-12 15:50] LABS: Appearance Urine Clear; Color Urine Yellow; Glucose Urine UA Negative (Negative); Leukocyte Esterase Urine Negative (Negative); Nitrite Urine Negative (Negative); PH 8.5 (5.0-9.0); Specific Gravity - Urine >= 1.030 (1.005-1.025); Urine Blood Negative (Negative); Urine Ketones Negative (Negative); Urine Protein Negative (Neg-Trace)
--- NOTE | 2024-02-12 17:09 | PC.NURSE ---
PT ARRIVES ENDORSING SEVERE DIZZINESS, HEADACHE STARTING YESTERDAY. HAS A HX OF VERTIGO, THOUGH THIS FEELS SIGNIFICANTLY WORSE. DISTANT HX OF DC. ARRIVES HYPERTENSIVE, DID TAKE ALL PRESCRIBED MEDS THIS AM. ORTHOS NEGATIVE. PT STATES FEELING BETTER, PT IS NOW ABLE TO AMBULATE INDEPENDENTLY, THOUGH GAIT REAMINS A LITTLE UNSTEADY. TO BE ADMITTED FOR FURTHER EVALUATION OF ONGOING DIZZINESS. REMAINS HYPERTENSIVE, MD FREY AWARE, NO NEW ORDERS, PERMISSIVE HYPERTENSION <220/120.
--- NOTE | 2024-02-12 17:10 | MHC.EDTECH ---
THIS PCT ASSUMED CARE OF PATIENT AT 1500 ,ORTHOSTATICS ,VITALS TAKEN AND PATIENT BELONINGS LIST DONE ,PATIENT SON AT BEDSIDE .
--- NOTE | 2024-02-12 17:42 | P.HPHOSP_ITS ---
History of Present Illness Date of Service: 02/12/24 Chief Complaint: dizziness 73-year-old male with a history of coronary artery disease. He has a history of an CO and has a coronary stent. Over the last 3 or 4 days the patient has had gradually worsening dizziness that interferes with his ability to walk. He describes a room spinning dizziness that he thought might be vertigo. This is also been associated with a worsening headache over the last 3-4 days. He has had no difficulty speaking. He has had no unilateral weakness. He says that his symptoms were mild for the 1st 2 or 3 days. He was not doing very badly last night when he went to bed. This morning he woke up at around 05:00 and as soon as he sat up he felt very dizzy and felt that he was having significant difficulty walking today compared to yesterday. 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 He drove himself to his restaurant at around 08:30. He says that he had to drive very slowly because he felt he was unsteady while driving. ER Initial workup in ER including CTA of the head and neck and plain CT failed to demonstrate any acute findings. He will be admitted for further workup and specialty consultation Review of Systems 2 Review of Systems: Denies chest pain Denies shortness of breath Denies nausea vomiting diarrhea Denies fever chills PMFSH Medical History No pertinent past medical history Family History Father Heart problem Mother Heart problem Surgical History H/O removal of cyst H/O shoulder surgery Hx of hernia repair Status post surgical removal of neoplasm of skin Hx of appendectomy Hx of cataract surgery Social History Household Members: Family Housing: House Are you a primary care transitions manager to a significant other at home: No Do you presently have visiting nurse or other home services: No Alcohol intake: current Alcohol intake frequency: a few times a month Alcohol type: beer and wine Patient Tobacco Use Status: Former Tobacco user Tobacco use type: Cigar Smoked in Last 30 Days: No e-Cigarette/Vaping Use: Never Used Use of substances other than those prescribed or required for medical reasons: No Advance Directives: No Advance Directives Information Provided: Yes service: No Current occupational status: employed 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 [employer] Current occupational exposures/hazards: No Cognitive needs: No Hearing needs: No Vision needs: Yes Meds Allergies Allergy/AdvReac Type Severity Reaction Status Date / Time cat dander Allergy Mild bumps on Verified 02/12/24 12:27 skin, eyes and nose closes Latex, Natural Rubber Allergy Mild itchy skin Verified 02/12/24 12:27 No Known Drug Allergies Allergy Unknown Unknown Verified 02/12/24 12:27 pollen Allergy Mild Unknown Uncoded 02/12/24 12:27 Active Medications: Current Medications Acetaminophen (Acetaminophen 325 Mg Tablet) 650 mg PO Q6H PRN PRN Reason: Pain, Mild (Pain Scale 1-3) Ondansetron HCl (Ondansetron Hcl 4 Mg/2 Ml Vial) 4 mg IVPUSH Q8H PRN PRN Reason: Nausea and Vomiting Sodium Chloride (0.9 % Sodium Chloride Flush 3 Ml Syringe) 3 ml IVFLUSH [facility] Medications ?Medication ?Instructions ?Recorded ?Confirmed ?Last Taken ?Type aspirin 81 mg tablet,delayed 81 mg PO DAILY 05/08/23 02/08/24 Unknown History release (Adult Aspirin Regimen) atorvastatin 40 mg tablet 40 mg PO BEDTIME 10/24/23 02/08/24 Unknown History valsartan 40 mg tablet 40 mg PO DAILY 10/24/23 02/08/24 Unknown History Physical Exam 2 Vital Signs and Narrative: Vital Signs: Last Vital Signs Temp 97.5 F 02/12/24 17:05 Pulse 53 02/12/24 17:05 Resp 16 02/12/24 17:05 BP 158/73 H 02/12/24 17:05 Pulse Ox 98 02/12/24 17:05 O2 Del Method Room Air 02/12/24 17:05 BMI result Body Mass Index 24.7 Const: Other: Awake alert no acute distress Neck: Other: No bruits Resp: Other: Clear to auscultation bilaterally no rales rhonchi or wheezes Cardio: Other: No S4; positive S1-S2; no S3 murmurs rubs or gallops GI: Other: Soft nontender nondistended normoactive bowel sounds Neuro: Other: Cranial nerves 2 through 12 grossly intact as tested. Motor is 5/5 all extremities. Sensation intact. Gait steady Extrem: Other: No edema bilaterally Results Labs 02/12/24 14:19 02/12/24 14:20 Labs: Laboratory Results - last 24 hr 02/12/24 02/12/24 02/12/24 14:19 14:20 15:42 MCV 86.7 MCH 28.8 MCHC 33.2 RDW 13.0 Plt Count 250 MPV 11.1 Immature Gran % (Auto) 0.3 Neut % (Auto) 76.6 H Lymph % (Auto) 18.2 L [place] % (Auto) 3.5 Eos % (Auto) 0.3 Baso % (Auto) 1.1 Lymph # (Auto) 1.2 [place] # (Auto) 0.2 Eos # (Auto) 0.0 Baso # (Auto) 0.1 Abs Immat Gran (auto) 0.02 Absolute Neuts (auto) 4.8 Absolute Nucleated RBC 0.000 Nucleated RBC % (auto) 0.0 PT 12.4 INR 1.0 APTT 29.3 Anion Gap 10 L Estim Creat Clear Calc 88.5 Estimated GFR > 60 Random Glucose 118 H Calcium 9.2 Magnesium 1.9 Total Bilirubin 0.7 AST 32 ALT 22 Alkaline Phosphatase 57 Troponin I High Sens 3.3 Total Protein 6.5 Albumin 3.9 Urine Color Yellow Urine Appearance Clear Urine pH 8.5 Ur Specific [place] >= 1.030 H Urine Protein Negative Urine Glucose (UA) Negative Urine Ketones Negative Urine Blood Negative Urine Nitrite Negative Ur Leukocyte Esterase Negative Influenza Type A (PCR) NEGATIVE Influenza Type B (PCR) NEGATIVE RSV RNA Qual (PCR) NEGATIVE SARS-CoV-2 RNA (RT-PCR) NEGATIVE Imaging Radiologist's Impressions: Impressions Head CT 02/12/24 14:57 IMPRESSION: No acute intracranial abnormality. Specifically, no CT evidence of acute intracranial hemorrhage, significant mass effect, hydrocephalus, or large territorial infarction. Head/Neck CTA 02/12/24 14:59 IMPRESSION: Unremarkable examination in that there is no evidence of acute territorial infarct or hemorrhage. No abnormal intracranial mass or enhancement. There is no stenosis of the cervical carotid or vertebral arteries. No intracranial large vessel occlusion. Assessment and Plan (1) Dizziness: Status: Acute (2) CAD (coronary artery disease): Qualifiers: Coronary Disease-Associated Artery/Lesion type: unspecified vessel or lesion type [place] vs. transplanted heart: [place] heart Associated angina: u nspecified whether angina present Qualified Code(s): I25.10 - Atherosclerotic heart disease of [place] coronary artery without angina pectoris Status: Acute (3) Hypertension: Qualifiers: Hypertension type: primary hypertension Qualified Code(s): I10 - Essential (primary) hypertension Status: Acute Plan 73-year-old male with history of coronary artery disease status post CO and stent hypertension hyperlipidemia presents with dizziness and spinning worsening over the last 2 or 3 days. Initial workup in the emergency room failed to demonstrate any acute abnormalities. Patient will be admitted for further workup and specialist consultation admit telemetry 1.Dizziness CTA head and neck along with dry CTA of the head failed to demonstrate acute pathology -admit telemetry -2D echo in a.m. -MRI of brain in a.m. -ASA/statin -neurology consult 2. CAD -stable and well compensated at this time -continue outpatient therapies 3. Hypertension -acceptable control on current therapies -adjust as indicated Full code Boots Patient will be admitted to telemetry (observation) and further workup will be completed for possible CVA including specialist consultation. This can not be achieved a lesser acute setting Quality Stroke Does the patient have a stroke diagnosis?: No VTE Prior VTE?: No VTE Risk Level:: Medical - moderate - high VTE Device Contraindication: N/A - Device Ordered VTE Drug Contraindication: Treatment Not Indicated
--- NOTE | 2024-02-12 19:06 | MHC.EDTECH ---
PARTIENT WAS SET UP WITH DINNER ,ATE 100 % OF MEAL DRANK 240 ML FLUIDS .
--- NOTE | 2024-02-12 19:29 | PHA.MEDREC ---
Pharmacy Consult ? Medication Reconciliation Pharmacy has completed the medication reconciliation. Patient had list of medications. Elyse Garcia, AvrilD
--- NOTE | 2024-02-12 19:37 | PC.NURSE ---
pt amulated to the [facility] c/o mild dizziness,
--- NOTE | 2024-02-12 20:30 | PC.NURSE ---
pt to MRI via [facility]
[2024-02-12] MEDS: Atorvastatin Calcium 40 MG TABLET PO (21:46)
[2024-02-13] VITALS (9 sets, daily range): BP systolic 121–156; BP diastolic 60–76; PULSE 53–64; RESP 12–20; TEMP 36.2–36.9; O2SAT 96–99
[2024-02-13] MEDS: 0.9 % Sodium Chloride Flush 3 ML SYRINGE IVFLUSH (01:15)
[2024-02-13 04:31] LABS: Hematocrit 37.9 % (42.0-52.0); PLT CLUMP 1; SCAN SMEAR FLAG 1
[2024-02-13 04:32] LABS: Basophils Absolute Auto 0.1 X10*3/uL (0.0-0.2); Eosinophils Absolute Auto 0.1 X10*3/uL (0.0-0.4); Eosinophils Percent Auto 1.6 % (0-4); Hemoglobin 12.3 g/dl (14.0-18.0); Imm Gran Abs Auto 0.05 X10*3/uL (0.00-0.03); Imm Gran Pct Auto 0.9 % (0.0-0.4); Lymphocytes Absolute Auto 2.1 X10*3/uL (1.2-4.9); Lymphocytes Percent Auto 37.5 % (20-40); MANUAL DIFF FLAG SCAN; Mean Corpuscular HGB Conc 32.5 g/dl (31.0-36.0); Mean Corpuscular Hemoglobin 27.9 pg (27.0-33.0); Mean Corpuscular Volume 85.9 fL (80.0-98.0); Monocytes Absolute Auto 0.5 X10*3/uL (0.1-1.2); Monocytes Percent Auto 8.7 % (2-11); Neutrophils Absolute Auto 2.7 x10*3/uL (2.0-8.3); Neutrophils Percent Auto 49.3 % (45-73); Red Blood Count 4.41 X10*6/uL (4.60-5.80)
[2024-02-13 04:34] LABS: Platelet Count 210 X10*3/uL (160-400); White Blood Count 5.5 X10*3/uL (4.8-10.8)
[2024-02-13 04:44] LABS: Alanine Aminotransferase 19 U/L (0-40); Albumin Level 3.6 g/dL (3.5-5.0); Alkaline Phosphatase 47 U/L (39-117); Anion Gap 13 (12-20); Aspartate Amino Transferase 21 U/L (5-37); Bilirubin Total 0.7 mg/dL (0.0-1.0); Blood Urea Nitrogen 15 mg/dL (9-16); Calcium 8.9 mg/dL (8.4-10.2); Carbon Dioxide 21 mmol/L (22-29); Chloride 112 mmol/L (96-108); Estimated Glomerular Filt Rate > 60; Glucose Random 92 mg/dL (60-115); Potassium 3.8 mmol/L (3.3-5.1); Sodium 142 mmol/L (135-145); Total Protein 5.8 g/dL (6.5-8.0)
[2024-02-13 04:50] LABS: SLIDE REVIEW VERIFIED
[2024-02-13] MEDS: Omeprazole 20 MG CAPSULE.DR PO (07:13)
--- NOTE | 2024-02-13 07:20 | PC.NURSE ---
Patient is sitting up eating breakfast, patient xurrently has no cpmplaints states he is feeling better today. patient is alert and oriented x4, speach is clear, speaking in full sentences. patient states he has a headache,offered prn medication, patient denied. Respirations equal and unlabored, skin dry and contact, VSS
[2024-02-13] MEDS: Aspirin Enteric Coated 81 MG TABLET.DR PO (08:56)
[2024-02-13] MEDS: Thiamine HCL 100 MG TABLET PO (08:56)
--- NOTE | 2024-02-13 08:56 | ECG_ITS ---
Test Reason : CP Blood Pressure : / mmHG Vent. Rate : 060 BPM Atrial Rate : 060 BPM P-R Int : 192 ms QRS Dur : 130 ms QT Int : 430 ms P-R-T Axes : 064 -52 014 degrees QTc Int : 430 ms Normal sinus rhythm Right bundle branch block Left anterior fascicular block Bifascicular block Abnormal ECG When compared with ECG of 12-FEB-2024 12:57, No significant change was found Referred By: Satya Rosales Electronically Signed By:Omi Escobar
[2024-02-13] MEDS: Metoprolol Succinate ER 50 MG TAB.ER.24H PO (09:28)
[2024-02-13] MEDS: Butalb/Acetamin/Caff 50/325/40 TABLET 1 TAB PO (10:51)
--- NOTE | 2024-02-13 11:03 | PM.NEUROCN ---
History of Present Illness Data of Consult Service Date: 02/13/24 Primary Care Provider: Hector Colindres MD [facility] Reason for consult: Dizziness and off balance feeling This is a 73-year-old male with a history of coronary artery disease with ME s/p coronary stent. Presents with 3 or 4 days of gradually worsening dizziness that interferes with his ability to walk. He describes a room spinning dizziness, associated with a worsening headache. He has had no difficulty speaking or weakness. He says that his symptoms were mild for the 1st 2 or 3 days. Sx got worse on morning of admission when he sat up he felt very dizzy and felt that he was having significant difficulty walking. 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 He says that he had to drive very slowly because he felt he was unsteady while driving. CTA of the head and neck without occlusive disease, and MRI of brain did not demonstrate any acute findings. All of his symptoms have resolved He has had chronic tinnitus in both years for more than 10 years. Additionally, he gets episodes of vertigo off and on for the last 3-4 years. He also feels pressure in his ears. He has had a 2 mm ptosis of the left eye for the last year and a half since cataract surgery Review of Systems Review of Systems: Denies chest pain Denies shortness of breath Denies nausea vomiting diarrhea Denies fever chills PMFSH Past Medical History Medical History No pertinent past medical history Family History Family History Father Heart problem Mother Heart problem Surgical History Surgical History H/O removal of cyst H/O shoulder surgery Hx of hernia repair Status post surgical removal of neoplasm of skin Hx of appendectomy Hx of cataract surgery Social History Social History Household Members: Family Housing: House Are you a primary respiratory care specialist to a significant other at home: No Do you presently have visiting nurse or other home services: No Alcohol intake: current Alcohol intake frequency: a few times a month Alcohol type: beer and wine Patient Tobacco Use Status: Former Tobacco user Tobacco use type: Cigar Smoked in Last 30 Days: No e-Cigarette/Vaping Use: Never Used Use of substances other than those prescribed or required for medical reasons: No Advance Directives: No Advance Directives Information Provided: Yes service: No Current occupational status: employed 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 [employer] Current occupational exposures/hazards: No Cognitive needs: No Hearing needs: No Vision needs: Yes Meds Allergies Allergy/AdvReac Type Severity Reaction Status Date / Time cat dander Allergy Mild bumps on Verified 02/12/24 12:27 skin, eyes and nose closes Latex, Natural Rubber Allergy Mild itchy skin Verified 02/12/24 12:27 No Known Drug Allergies Allergy Unknown Unknown Verified 02/12/24 12:27 pollen Allergy Mild Unknown Uncoded 02/12/24 12:27 Active Medications: Current Medications Acetaminophen (Acetaminophen 325 Mg Tablet) 650 mg PO Q6H PRN PRN Reason: Pain, Mild (Pain Scale 1-3) Aspirin (Aspirin Enteric Coated 81 Mg Tablet.) 81 mg PO DAILY [facility] Last Admin: 02/13/24 08:56 Dose: 81 mg Atorvastatin Calcium (Atorvastatin Calcium 40 Mg Tablet) 40 mg PO BEDTIME [facility] Last Admin: 02/12/24 21:46 Dose: 40 mg Metoprolol Succinate (Metoprolol Succinate Er 50 Mg Tab.Er.24h) 50 mg PO DAILY [facility]; Protocol Last Admin: 02/13/24 09:28 Dose: 50 mg Omeprazole (Omeprazole 20 Mg Capsule.) 20 mg PO DAILY@0630 [facility] Last Admin: 02/13/24 07:13 Dose: 20 mg Ondansetron HCl (Ondansetron Hcl 4 Mg/2 Ml Vial) 4 mg IVPUSH Q8H PRN PRN Reason: Nausea and Vomiting Sodium Chloride (0.9 % Sodium Chloride Flush 3 Ml Syringe) 3 ml IVFLUSH QSHIFT [facility] Last Admin: 02/13/24 07:22 Dose: Not Given Tamsulosin HCl (Tamsulosin Hcl 0.4 Mg Capsule) 0.4 mg PO BEDTIME [facility] Thiamine HCl (Thiamine Hcl 100 Mg Tablet) 100 mg PO DAILY [facility] Last Admin: 02/13/24 08:56 Dose: 100 mg Valsartan (Valsartan 40 Mg Tablet) 40 mg PO BEDTIME [facility]; Protocol Home Medications ?Medication ?Instructions ?Recorded ?Confirmed ?Last Taken ?Type aspirin 81 mg tablet,delayed 81 mg PO DAILY 05/08/23 02/12/24 02/12/24 History release (Adult Aspirin Regimen) atorvastatin 40 mg tablet 40 mg PO BEDTIME 10/24/23 02/12/24 02/11/24 History valsartan 40 mg tablet 40 mg PO BEDTIME 10/24/23 02/12/24 02/11/24 History garlic 1,000 mg capsule 1,000 mg PO DAILY 02/12/24 02/12/24 02/12/24 History omega 4-cpu-bnl-fish oil 1,000 mg 1 cap PO DAILY 02/12/24 02/12/24 02/12/24 History (120 mg-180 mg) capsule (Fish Oil) thiamine HCl (vitamin B1) 100 mg 100 mg PO DAILY 02/12/24 02/12/24 02/12/24 History tablet Physical Exam Vital Signs: Vital Signs: Last Vital Signs Temp 98.1 F 02/13/24 09:02 Pulse 64 02/13/24 09:02 Resp 12 02/13/24 09:02 BP 149/62 H 02/13/24 09:02 Pulse Ox 98 02/13/24 09:02 O2 Del Method Room Air 02/13/24 09:02 BMI result Body Mass Index 24.7 Const: Other: Awake alert no acute distress HEENT: Other: No facial asymmetry. Tongue is midline. Mucous membranes moist. Eyes: Other: Extraocular movements are intact. I did not appreciate any nystagmus. Visual rodriguez are intact to confrontation. Neck: Other: No bruits Resp: Other: Clear to auscultation bilaterally no rales rhonchi or wheezes Effort & Inspection: normal respiratory effort Auscultation: clear to auscultation bilaterally Cardio: Other: No S4; positive S1-S2; no S3 murmurs rubs or gallops Rate: regular rate Rhythm: regular rhythm Heart sounds: S1 normal heart sound present and S2 normal heart sound present GI: Other: Soft nontender nondistended normoactive bowel sounds Skin: Other: Skin is dry and unremarkable Neuro: Other: Cranial nerves 2 through 12 intact except for 2 mm ptosis of the left upper lid. Motor is 5/5 all extremities. Normal and nonfocal neurological examination. Sensation intact. Extrem: Other: No edema bilaterally Results Labs 02/13/24 04:01 02/13/24 04:01 Labs: Short CBC 02/12/24 02/13/24 Range/Units 14:19 04:01 WBC 6.3 5.5 (4.8-10.8) X10*3/uL Hgb 12.1 L 12.3 L (14.0-18.0) g/dl Hct 36.4 L 37.9 L (42.0-52.0) % Plt Count 250 210 (160-400) X10*3/uL BMP 02/12/24 02/13/24 14:20 04:01 Sodium 138 142 Potassium 4.5 3.8 Chloride 108 112 H Carbon Dioxide 25 21 L BUN 22 H 15 Creatinine 0.79 0.76 Calcium 9.2 8.9 Liver Function 02/12/24 02/13/24 Range/Units 14:20 04:01 Total Bilirubin 0.7 0.7 (0.0-1.0) mg/dL AST 32 21 (5-37) U/L ALT 22 19 (0-40) U/L Alkaline Phosphatase 57 47 (39-117) U/L Albumin 3.9 3.6 (3.5-5.0) g/dL Urine 02/12/24 Range/Units 15:42 Urine Color Yellow Urine Appearance Clear Urine pH 8.5 (5.0-9.0) Ur Specific [place] >= 1.030 H (1.005-1.025) Urine Protein Negative (Neg-Trace) mg/dL Urine Glucose (UA) Negative (Negative) mg/dL Assessment and Plan (1) Dizziness: Status: Acute Probable Meniere's disease with the long history of bilateral tinnitus, slowly progressive hearing loss and episodic vertigo. MRI of the brain and CTA are negative. Recommendations: Meclizine 25 mg every 8 hours when necessary. Monitor blood pressure. (2) CAD (coronary artery disease): Qualifiers: Associated angina: unspecified whether angina present Coronary Disease-Associated Artery/Lesion type: unspecified vessel or lesion type [place] vs. transplanted heart: [place] heart Qualified Code(s): I25.10 - Atherosclerotic heart disease of [place] coronary artery without angina pectoris Status: Acute (3) Hypertension: Qualifiers: Hypertension type: primary hypertension Qualified Code(s): I10 - Essential (primary) hypertension Status: Acute Plan 73-year-old male with history of coronary artery disease status post ME and stent hypertension hyperlipidemia presents with dizziness and spinning worsening over the last 2 or 3 days. Initial workup in the emergency room failed to demonstrate any acute abnormalities. Patient will be admitted for further workup and specialist consultation admit telemetry 1.Dizziness CTA head and neck along with dry CTA of the head failed to demonstrate acute pathology -admit telemetry -2D echo in a.m. -MRI of brain in a.m. -ASA/statin -neurology consult 2. CAD -stable and well compensated at this time -continue outpatient therapies 3. Hypertension -acceptable control on current therapies -adjust as indicated Full code Boots Patient will be admitted to telemetry (observation) and further workup will be completed for possible CVA including specialist consultation. This can not be achieved a lesser acute setting Procedures Date of Service Date of Service: 02/13/24
--- NOTE | 2024-02-13 12:46 | MHC.CM.PN ---
CM met with Patient and his Son at bedside, in the ED, and assisted Patient with the completion of a HCP(Son/Ruddy named as Agent). Patient lives in a house with his Son and he required no services nor DME PHYSIATRIST. Home/self care is the goal and CM has initiated and will follow for dc planning. PCP is Dr. Hector Colindres.
--- NOTE | 2024-02-13 14:28 | PM.DS ---
DS: Providers Provider Date of Service: 02/13/24 Date of admission: 02/12/24 17:36 Primary care physician: Hector Colindres MD Consults: 02/12/24 17:40 Consult to Neurology Routine Consulting Provider: [facility] Reason for consultation: ?CVA Has provider been notified: No DS: Diagnosis Discharge Diagnosis (1) Dizziness: Status: Acute (2) CAD (coronary artery disease): Status: Acute (3) Hypertension: Status: Acute DS: Summary Hospital Course Hospital Course: History of presenting illness: Date of Service: 02/12/24 Chief Complaint: dizziness 73-year-old male with a history of coronary artery disease. He has a history of an OH and has a coronary stent. Over the last 3 or 4 days the patient has had gradually worsening dizziness that interferes with his ability to walk. He describes a room spinning dizziness that he thought might be vertigo. This is also been associated with a worsening headache over the last 3-4 days. He has had no difficulty speaking. He has had no unilateral weakness. He says that his symptoms were mild for the 1st 2 or 3 days. He was not doing very badly last night when he went to bed. This morning he woke up at around 05:00 and as soon as he sat up he felt very dizzy and felt that he was having significant difficulty walking today compared to yesterday. 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 He drove himself to his restaurant at around 08:30. He says that he had to drive very slowly because he felt he was unsteady while driving. ER Initial workup in ER including CTA of the head and neck and plain CT failed to demonstrate any acute findings. He will be admitted for further workup and specialty consultation Hospital course: 73-year-old gentleman with past medical history of coronary artery disease status post OH and stent placement, history of hypertension, hyperlipidemia admitted to [facility] with a diagnosis of dizziness, headache and spinning of 2-3 days' duration patient admitted to [facility] for close neurological monitoring, and underwent CTA head and neck that showed no acute abnormality, MRI brain change showed no acute stroke patient was noted to have elevated blood pressures, patient treated with home antihypertensive medications blood pressure improved but noted to have drop in blood pressure with standing with no change in pulse, patient treated with Fioricet, patient's symptoms of headache and dizziness resolved patient evaluated by Neurology they palpation might have Meniere's disease with longstanding history of tinnitus, slowly progressive hearing loss and episodic vertigo he recommended meclizine 25 mg t.i.d. as needed, he is being discharged today and recommended to continue home antihypertensive and follow blood pressure closely with PCP and to get up slowly with standing position, patient noted to have normal neurological examination. Coronary artery disease/hyperlipidemia recommend to continue home medications. Time Attestation Discharge Coordination Time (in mins): 35 Quality: Safe Use of Opioids Does Pt have an Active Cancer Diagnosis on the Problem List?: No Quality: Stroke Does the patient have a stroke diagnosis?: No Physical Exam Vital Signs: Vital Signs: Last Vital Signs Temp 98.0 F 02/13/24 14:04 Pulse 56 02/13/24 14:04 Resp 20 02/13/24 14:04 BP 141/67 H 02/13/24 14:04 Pulse Ox 99 02/13/24 14:04 O2 Del Method Room Air 02/13/24 14:04 BMI result Body Mass Index 24.7 Const: Other: General awake alert x3, in no acute distress. No nystagmus/right pupil bigger than left (chronic), 2 mm ptosis of left upper lid Neck supple no JVD. CVS regular rate rhythm, Respiratory lungs clear to auscultation, no respiratory distress, no wheeze, no rhonchi. Gastrointestinal abdomen soft, nontender, bowel sounds audible, no guarding , no rigidity. Extremities no edema. Neuro non focal Skin no rash DS: Data Data Completed and Pending Labs on day of discharge: Laboratory Results - last 24 hr 02/12/24 02/12/24 02/12/24 14:19 14:20 15:42 WBC 6.3 RBC 4.20 L Hgb 12.1 L Hct 36.4 L MCV 86.7 MCH 28.8 MCHC 33.2 RDW 13.0 Plt Count 250 MPV 11.1 Immature Gran % (Auto) 0.3 Neut % (Auto) 76.6 H Lymph % (Auto) 18.2 L [place] % (Auto) 3.5 Eos % (Auto) 0.3 Baso % (Auto) 1.1 Lymph # (Auto) 1.2 [place] # (Auto) 0.2 Eos # (Auto) 0.0 Baso # (Auto) 0.1 Abs Immat Gran (auto) 0.02 Absolute Neuts (auto) 4.8 Absolute Nucleated RBC 0.000 Nucleated RBC % (auto) 0.0 Smear Tech's Comments PT 12.4 INR 1.0 APTT 29.3 Sodium 138 Potassium 4.5 Chloride 108 Carbon Dioxide 25 Anion Gap 10 L BUN 22 H Creatinine 0.79 Estim Creat Clear Calc 88.5 Estimated GFR > 60 Random Glucose 118 H Calcium 9.2 Magnesium 1.9 Total Bilirubin 0.7 AST 32 ALT 22 Alkaline Phosphatase 57 Troponin I High Sens 3.3 Total Protein 6.5 Albumin 3.9 Urine Color Yellow Urine Appearance Clear Urine pH 8.5 Ur Specific [place] >= 1.030 H Urine Protein Negative Urine Glucose (UA) Negative Urine Ketones Negative Urine Blood Negative Urine Nitrite Negative Ur Leukocyte Esterase Negative Influenza Type A (PCR) NEGATIVE Influenza Type B (PCR) NEGATIVE RSV RNA Qual (PCR) NEGATIVE SARS-CoV-2 RNA (RT-PCR) NEGATIVE 02/13/24 02/13/24 04:01 09:23 WBC 5.5 RBC 4.41 L Hgb 12.3 L Hct 37.9 L MCV 85.9 MCH 27.9 MCHC 32.5 RDW 13.0 Plt Count 210 MPV 11.0 Immature Gran % (Auto) 0.9 H Neut % (Auto) 49.3 Lymph % (Auto) 37.5 [place] % (Auto) 8.7 Eos % (Auto) 1.6 Baso % (Auto) 2.0 Lymph # (Auto) 2.1 [place] # (Auto) 0.5 Eos # (Auto) 0.1 Baso # (Auto) 0.1 Abs Immat Gran (auto) 0.05 H Absolute Neuts (auto) 2.7 Absolute Nucleated RBC 0.000 Nucleated RBC % (auto) 0.0 Smear Tech's Comments VERIFIED PT INR APTT Sodium 142 Potassium 3.8 Chloride 112 H Carbon Dioxide 21 L Anion Gap 13 BUN 15 Creatinine 0.76 Estim Creat Clear Calc 92.0 Estimated GFR > 60 Random Glucose 92 Calcium 8.9 Magnesium Total Bilirubin 0.7 AST 21 ALT 19 Alkaline Phosphatase 47 Troponin I High Sens 4.0 Total Protein 5.8 L Albumin 3.6 Urine Color Urine Appearance Urine pH Ur Specific [place] Urine Protein Urine Glucose (UA) Urine Ketones Urine Blood Urine Nitrite Ur Leukocyte Esterase Influenza Type A (PCR) Influenza Type B (PCR) RSV RNA Qual (PCR) SARS-CoV-2 RNA (RT-PCR) Discharge Plan Discharge Anticipated Discharge Date/Time: 02/13/24 14:15 Patient Disposition: Home, Self-Care Discharge Diagnosis: Dizziness Referrals: Hector Colindres MD [Primary Care Provider] - 1 Week Discharge Medications: New meclizine 25 mg tablet 25 mg PO TID PRN (Reason: dizziness or vertigo) Qty: 30 0RF Continued pantoprazole 40 mg tablet,delayed release (DR/EC) 40 mg PO DAILY 90 Days Qty: 90 2RF metoprolol succinate 50 mg tablet extended release 24 hr 50 mg PO DAILY 90 Days Qty: 90 2RF thiamine HCl (vitamin B1) 100 mg Tablet 100 mg PO DAILY garlic 1,000 mg Capsule 1,000 mg PO DAILY omega 0-lud-lqa-fish oil [Fish Oil] 1,000 mg (120 mg-180 mg) Capsule 1 cap PO DAILY aspirin [Adult Aspirin Regimen] 81 mg tablet,delayed release (DR/EC) 81 mg PO DAILY atorvastatin 40 mg tablet 40 mg PO BEDTIME valsartan 40 mg tablet 40 mg PO BEDTIME tamsulosin 0.4 mg capsule 0.4 mg PO BEDTIME 30 Days Qty: 30 3RF Discharge Orders: Discharge Order (Routine); Ordered 02/13/24 Ordered By: Rebecca Ramirez Diet: Advance to usual diet Activity on Discharge: As tolerated Stand Alone Forms: Patient Portal Discharge page Print Language: Chilean Care Plan Goals: Dizziness resolved question due to Meniere's disease take meclizine 25 mg 1 tablet 3 times a day as needed for recurrent dizziness Monitor blood pressure closely follow-up with primary care physician if noted to have lightheadedness with standing Get up slowly from sitting position Health Concerns: Hypertension take blood pressure medications and monitor BP closely Plan of Treatment: Follow-up with primary care physician. Assessment: As above
--- NOTE | 2024-02-13 14:29 | MHC.CM.PN ---
Patient has been medically cleared for dc to home today, self care.
== END 2024-02-13 14:41 | disposition home or self-care (01) ==
LOC: HO.ED 16:52 → HO.EDOVER 17:42
PROVIDERS: Physician Assistant Medical; Admitting Provider Hospitalist; Emergency Provider Emergency Medicine; PCP Family Medicine; Visit Provider Hospitalist
DX: R42 Dizziness and giddiness (principal); I25.10 Atherosclerotic heart disease of native coronary artery without angina pectoris; I10 Essential (primary) hypertension; R51.9 Headache, unspecified; I25.2 Old myocardial infarction; R07.9 Chest pain, unspecified; E78.5 Hyperlipidemia, unspecified; Z95.818 Presence of other cardiac implants and grafts; Z79.899 Other long term (current) drug therapy; Z03.818 Encounter for observation for suspected exposure to other biological agents ruled out
CPT/HCPCS: 0241U; 36415; 70450; 70496; 70498; 70551; 80053; 81003; 83735; 84484; 85025; 85610; 85730; 93005; 96360; 96361; 99222; 99285; Q9957; Q9967

== ENCOUNTER → 2024-02-12 12:22 | Outpatient (BNV) | payer MEDICARE, OTHER, SELFPAY | PROVIDERS: Admitting Provider Hospitalist; Emergency Provider Emergency Medicine; PCP Family Medicine; Visit Provider Internal Medicine Cardiovascular Disease | DX: R00.1 Bradycardia, unspecified (principal) | CPT/HCPCS: 93010 ==

== ENCOUNTER 2024-02-12 17:36 | Outpatient (BNV) | payer MEDICARE, OTHER, SELFPAY | END 2024-02-13 08:56 | PROVIDERS: Admitting Provider Hospitalist; Emergency Provider Emergency Medicine; PCP Family Medicine; Visit Provider Internal Medicine Cardiovascular Disease | DX: R94.31 Abnormal electrocardiogram [ECG] [EKG] (principal); R07.9 Chest pain, unspecified | CPT/HCPCS: 93010 ==

== ENCOUNTER → 2024-02-12 17:36 | Outpatient (BNV) | payer MEDICARE, OTHER, SELFPAY | PROVIDERS: Admitting Provider Hospitalist; Emergency Provider Emergency Medicine; PCP Family Medicine; Visit Provider Psychiatry & Neurology Neurology | DX: R42 Dizziness and giddiness (principal); I11.9 Hypertensive heart disease without heart failure; I25.10 Atherosclerotic heart disease of native coronary artery without angina pectoris | CPT/HCPCS: 99222 ==

== ENCOUNTER → 2024-02-12 17:36 | Outpatient (BNV) | payer MEDICARE, OTHER, SELFPAY | PROVIDERS: Admitting Provider Hospitalist; Emergency Provider Emergency Medicine; PCP Family Medicine; Visit Provider Hospitalist | DX: R42 Dizziness and giddiness (principal); I11.9 Hypertensive heart disease without heart failure; I25.10 Atherosclerotic heart disease of native coronary artery without angina pectoris | CPT/HCPCS: 99223; 99239 ==

== ENCOUNTER 2024-02-28 10:34 | Outpatient (AMB) | payer MEDICARE, OTHER, SELFPAY ==
[2024-02-28 10:39] VITALS: BP 124/70; PULSE 65; O2SAT 98; BMI 24.2
--- NOTE | 2024-02-28 10:39 | MHC.PC.OV ---
Vital Signs 02/28/24 10:39 Height 5 ft 10 in Weight 169 lb BMI 24.2 BP 124/70 Blood Pressure Location Lt brachial Position Sitting Pulse 65 Pulse Source Pulse Oximeter Pulse Oximetry (%) 98 Oxygen Delivery Method Room Air Intake Visit Reasons: ed visit f/u Intake Note: Patient is here for ED follow up, was diagnosed with Menier's disease. He also states he is pain in his thighs, as if he's being pulled. Allergies cat dander Allergy (Mild, Verified 02/28/24 10:41) bumps on skin, eyes and nose closes Latex, Natural Rubber Allergy (Mild, Verified 02/28/24 10:41) itchy skin No Known Drug Allergies Allergy (Unknown, Verified 02/28/24 10:41) Unknown pollen Allergy (Mild, Uncoded 02/28/24 10:41) Unknown Medication List - Last Reconciled 02/28/24 by Hector Colindres MD aspirin (Adult Aspirin Regimen) 81 mg PO DAILY atorvastatin 40 mg PO BEDTIME cyclobenzaprine 10 mg PO BID PRN 10 days garlic 1,000 mg PO DAILY meclizine 25 mg PO TID PRN metoprolol succinate ER 50 mg PO DAILY 90 days naproxen 500 mg PO BID PRN 30 days omega 2-huw-zts-fish oil 1,000 mg (120 mg-180 mg) (Fish Oil) 1 cap PO DAILY pantoprazole 40 mg PO DAILY 90 days prednisone 4 tabs daily for 4 days, 3 tabs daily for 2 days, 2 tabs daily for 2 days, 1 tab daily for 2 days PO daily; 10 days tamsulosin 0.4 mg PO BEDTIME 30 days thiamine HCl (vitamin B1) 100 mg PO DAILY valsartan 40 mg PO BEDTIME Tobacco use date assessed: 02/28/24 Fall risk assessment: No Falls in past year Last assessed Fall Risk: 02/28/24 Dental Screening Dental Screen Date: 02/08/24 HPI ed visit f/u HPI Details 73 y/o male presents to f/u ED visit for gradually worsening dizziness that interferes with ability to work. Hx of CAD. CT scan of head was negative. Was evaluated by Neurology - Meniere's disease and was recommended meclizine 25mg t.i.d. as needed Pt notes meds only help a bit. HPI Comments History of Present Illness Details Documentation assistance for Hector Colindres MD, was provided by Hunter Kenny,? Respiratory Care Technician on 02/28/2024 10:54 AM ONDINA. I, Dr. Colindres, have read, observed, and verified documentation. [facility] Medical History CAD (coronary artery disease) Hypertension No pertinent past medical history Surgical History H/O removal of cyst H/O shoulder surgery Hx of hernia repair Status post surgical removal of neoplasm of skin Hx of appendectomy Hx of cataract surgery Family History Father Heart problem Mother Heart problem Social History Household Members: Family Both parents involved: No Caregiver staying overnight: No Housing: House Are you a primary career development specialist to a significant other at home: No Do you presently have visiting nurse or other home services: No 75 years or older and lives alone: No Alcohol intake: current Alcohol intake frequency: a few times a month Alcohol type: beer and wine Patient Tobacco Use Status: Former Tobacco user Tobacco use type: Cigar e-Cigarette/Vaping Use: Never Used service: No Current occupational status: employed Current occupation: [employer] Current occupational exposures/hazards: No Cognitive needs: No Hearing needs: No Vision needs: Yes Questionnaire Thrive Questionnaire Date Thrive assessed: 02/13/24 BUDDY-7 AMB Questionnaire BUDDY-7 Date BUDDY - 7 assessed: 05/08/23 Source: Developed by Drs. Henry Tony, Angie Funes, Lito Jean-Baptiste and colleagues, with an educational kinza from [employer]. Review of Systems Const Denies chills, Denies fatigue, Denies fever(s), Denies headache(s) and Denies weakness ENT Reports dizziness and Denies headache(s) Card Denies dyspnea Resp Denies cough, Denies dyspnea, Denies wheezing and Denies other (shortness of breath) Musc Denies numbness and Denies tingling Neuro Reports dizziness, Denies headache(s), Denies numbness, Denies tingling and Denies weakness Psych Denies anxiety and Denies depression Endo Denies fatigue Aller/Immun Denies wheezing Physical exam (Primary Care) Vital Signs: Last Vital Signs Pulse 65 02/28/24 10:39 BP 124/70 02/28/24 10:39 Pulse Ox 98 02/28/24 10:39 Oxygen Delivery Method Room Air 02/28/24 10:39 BMI result Body Mass Index 24.2 Tobacco/Smoking Status: Tobacco use Status Tobacco use date assessed 02/28/24 02/28/24 10:48 Patient Tobacco Use Status Former Tobacco user 02/28/24 10:48 Tobacco use type Cigar 02/28/24 10:48 e-Cigarette/Vaping Use Never Used 02/28/24 10:48 Thrive Assessment: Date of Thrive Assessment Date Thrive assessed 02/13/24 02/28/24 10:48 Const General: well developed; No acute distress Nutritional Appearance: well nourished Orientation/consciousness: patient oriented x3 HENMT Head: Yes normocephalic and Yes atraumatic Eyes General: appearance normal, both eyes and all related structures Pupils: Equal, round and reactive pupils present EOM: EOMs intact bilaterally Resp Effort & Inspection: normal respiratory effort Neuro General: patient oriented x3 and No gait normal Cranial nerves: Yes Equal, round and reactive pupils present Psych Affect: normal affect Assessment and Plan Assessment & Plan (1) Meniere disease: Code(s): H81.09 - Meniere's disease, unspecified ear Plan: Patient?was?recently?seen?at?the?ED?for?ongoing/worsening?vertigo?symptoms. CT?scan?was?negative.??Neurology?diagnosed?Meniere's?disease He?was?given?meclizine?which?he?says?only?helps?a?little. Will?give?him?a?prednisone?taper. Referred?him?back?to?physical?therapy?for?vestibular?rehab If?not?improving,?can?consider?a?diuretic?such?as?hydrochlorothiazide Medications: New prednisone 4 tabs daily for 4 days, 3 tabs daily for 2 days, 2 tabs daily for 2 days, 1 tab daily for 2 days PO daily; 10 days 28 tabs 0RF Coding Level of Care Code Est Pt Level 3 (93244) Diagnoses Meniere disease H81.09
== END 2024-02-28 11:04 | disposition home or self-care (01) ==
PROVIDERS: PCP Family Medicine; Visit Provider Family Medicine
DX: H81.03 Meniere's disease, bilateral (principal)
CPT/HCPCS: 99213

== ENCOUNTER 2024-03-28 13:00 | Outpatient (RCR) | payer MEDICARE, OTHER, SELFPAY ==
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
--- NOTE | 2024-04-16 10:13 | MHC.PT.OD ---
[facility] [place] Office [place] Office [place] Office [address] Florian Lewis [address] [phone] F: [phone] F: [phone] F: [phone] F: [phone] Physical Therapy Daily Note Diagnosis: R42.0 Dizziness and giddiness, H81.09 Meniere's disease, unspecified ear with referring provider by Dr. Colindres on 02/28/24 Date of Surgery: Date of Evaluation: 03/21/24 Date of Treatment: 03/21/24 Treatments to Date: Cancellations to Date: No Shows to Date: Authorized Visits: 2 Insurance End Date: Precautions/ Contraindications:cardiac, history of Menieres disease Subjective: Reports seeing retina specialist this am, will be having another L eye surgery next . Seeing section leader screen printing 04/12/24. Pt state he is having a relatively good day today in regard to his symptoms. Pain Score and Location: Objective Flowsheet: Tests & Measures Vital signs (taken manually R UE) had a bee sting on his L UE BP 130/58 mmHg, HR 61 bpm, SP02 99%. Exercises Sit<>stand with education for awareness of head position impact of BP/orthostatic impact to sx. Pt educated to be mindful of head position when bending over for something. HX (+) orthostatic screening. Vitals taken pre activity this date. Education re: eye appt outcomes and cardiology> vascular appts coming up. Pt will be having an US done to this L LE and is starting care with a new section leader screen printing in the future. Reviewed sit<>stand with band around thigh x 2 sets 5R with blue band around thigh. Pt educated to pushing from chair with B UE support and focus on slow eccentric control to sit with awareness of head position. Pt states sometimes this causes him to feel symptomatic but today was okay. Completed inside of the parallel bars with wobble board eyes open, eyes closed standing balancing weight shifting laterally, anterior/posterior x 2 sets 10R with cues to reduce heavy UE support and try to use LE/core to balance. Pt completed seated rest with eyes open. Recheck of HR and pulse ox, 62 bpm, SP02 99%. Trialed same task with eyes closed. Pt verbalized feeling of vertigo. Pt encourage to keep eyes closed for five seconds, then repeated this series open/closed a few times over. Eyes open/eyes closed with CGA from behind. Cues for correction of hip movements. Pt noted to express sx of unsteadiness with eyes closed. Therapist performed close S. Pt verbalized fear of losing his balance backwards but did not have any episode of physical posterior LOB/instability. Modalities Assessment: 03/28/24: Pt reports seeing a retina specialist this morning, will be booked for a second surgical eye procedure next week (04/04/24). Pt reports visual changes to L eye after having cataract surgery last year. Pt will be seeing a vascular MD/US of his left lower extremity (hx AK and stent). Pt will be establishing care with a new section leader screen printing in a few weeks (04/12/24). 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 Upon eval and inpatient hospital screening pt has history of orthostatic BP which also appears to be impacting his sx. Pt reports monitoring blood pressure at home. Pt expressed challenging anterior/posterior with the wobble board, more so with eyes closed. Pt was asymptomatic with [place] screening however due to pt's significant cardiac history of triggering of sx with cervical extension, he may benefit from further cardiac workup including US of carotid arteries due to severe sx with cervical extnesion. Pt will be placed on hold at PT at this time until he can establish care with a new section leader screen printing. Pt has inquired about status of referral to neurology re: his new Meniere's disease diagnosis. Addendum 04/15/24: Patient was scheduled for an appt this date however it was cancelled due to cardiac concerns (pt awaiting start of care with new section leader screen printing). Therapist called patient to see if he established care with new section leader screen printing- pt states he had an US of his left lower leg has a follow up with his vascular MD. Due to ongoing sx elicited with cervical extension, history of: cardiac concerns therapist educated patient in recommendation to seek out US of carotids/and or discuss with section leader screen printing/PCP. Pt exhibits negative Bernard-pike screening, ongoing (+) orthostatic screening at time of PT eval. Pt states he is due to see his PCP in May, inquired about establishing care with neurologist (pt states PCP was speaking of placing order for neurology due to new diagnosis of Meniere's disease). Pt reports some relief with initial steroid medication which was prescribed from his PCP. Patient was educated therapist would relay his telephone inquiry about obtaining a neurology referral with his PCP Dr. Colindres. Pt is a RHD 72 y/o male with PMH significant for cardiac history and AK with recent diagnosis of Meniere's disease following history of acute hospitalization on 02/12/24-02/13/24 for acute vertigo sx. History of referred to PT for treatment of R42.0 Dizziness and giddiness, H81.09 Meniere's disease, unspecified ear with referring provider by Dr. Colindres on 02/28/24. Pt exhibits decreased static/dynamic balance and reports he constantly Feels like I have been drinking or walking on a boat. Upon screen, pt had (+) orthostatic BP screening and is awaiting an appt with a new section leader screen printing. He has history of AK stent and reports is awaiting his yearly further vascular screening (states he is establishing care with a new provider). He reports pain in his entire L LE feels like it did in my chest when I had a blockage. Pt exhibits negative [place] Bernard-pike testing with no nystagmus noted. Pt states he is awaiting a neurology appt and is awaiting an appt with a retinal specialist (L eye). He reports history of repeated head traumas through this life including tree branches/baseball bats, wind-toth/ and tire-irons with history of multiple incident LOC. He expresses tinnitus in L ear, pressure/fullness in his ears, reports visual changes. Pt expresses some improvement with 10 day course of prednisone (since finishing he states he has been noting a trend of his symptoms). 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 Pt has decreased tolerance for head movements (flex>ext worse than cervical rotation>side-bending). Pt was advised to complete his cardiology appt (in April) and work to obtain a neurology consult. Pt is scheduled to see Dr. Colindres again in May. Pt prognosis for gain in balance with PT is fair based. diagnosis and complexity of patient. Pt was noted to express sx of fatigue at night, intolerance for walking around in the dark, and losses of balance which cause him to stumble and near fall. He denies any history of recent falls. PT Plan: Pt to establish care with cardiology (APRIL), see retina specialist (April), no appt with neuro yet to discuss with PCP and inquire on referral for this Short Term Goals: 1. Pt will transition from sit<>stand with improved awareness of safety/vertigo sx. 2. Ascend/descend a 6 inch step with good dynamic balance. Automatic Tire Tester Goals: 1. Pt will express 20% improvement in DHI. 2. Pt will demonstrate I in self care/safety with transfers/mobility. Electronically signed by: Mayi Almonte, PT, DPT
--- NOTE | 2024-04-22 12:45 | MHC.PT.OD ---
[facility] [place] Office [place] Office [place] Office [address] Florian Lewis [address] [phone] F: [phone] F: [phone] F: [phone] F: [phone] Physical Therapy Daily Note Diagnosis: R42.0 Dizziness and giddiness, H81.09 Meniere's disease, unspecified ear with referring provider by Dr. Colindres on 02/28/24 Date of Surgery: Date of Evaluation: 03/21/24 Date of Treatment: 03/21/24 Treatments to Date: Cancellations to Date: No Shows to Date: Authorized Visits: 2 Insurance End Date: Precautions/ Contraindications:cardiac, history of Menieres disease Subjective: Reports seeing retina specialist this am, will be having another L eye surgery next . Seeing transportation modeler 04/12/24. Pt state he is having a relatively good day today in regard to his symptoms. Pain Score and Location: Objective Flowsheet: Tests & Measures Vital signs (taken manually R UE) had a bee sting on his L UE BP 130/58 mmHg, HR 61 bpm, SP02 99%. Exercises Sit<>stand with education for awareness of head position impact of BP/orthostatic impact to sx. Pt educated to be mindful of head position when bending over for something. HX (+) orthostatic screening. Vitals taken pre activity this date. Education re: eye appt outcomes and cardiology> vascular appts coming up. Pt will be having an US done to this L LE and is starting care with a new transportation modeler in the future. Reviewed sit<>stand with band around thigh x 2 sets 5R with blue band around thigh. Pt educated to pushing from chair with B UE support and focus on slow eccentric control to sit with awareness of head position. Pt states sometimes this causes him to feel symptomatic but today was okay. Completed inside of the parallel bars with wobble board eyes open, eyes closed standing balancing weight shifting laterally, anterior/posterior x 2 sets 10R with cues to reduce heavy UE support and try to use LE/core to balance. Pt completed seated rest with eyes open. Recheck of HR and pulse ox, 62 bpm, SP02 99%. Trialed same task with eyes closed. Pt verbalized feeling of vertigo. Pt encourage to keep eyes closed for five seconds, then repeated this series open/closed a few times over. Eyes open/eyes closed with CGA from behind. Cues for correction of hip movements. Pt noted to express sx of unsteadiness with eyes closed. Therapist performed close S. Pt verbalized fear of losing his balance backwards but did not have any episode of physical posterior LOB/instability. Modalities Assessment: 03/28/24: Pt reports seeing a retina specialist this morning, will be booked for a second surgical eye procedure next week (04/04/24). Pt reports visual changes to L eye after having cataract surgery last year. Pt will be seeing a vascular MD/US of his left lower extremity (hx ID and stent). Pt will be establishing care with a new transportation modeler in a few weeks (04/12/24). 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 Upon eval and inpatient hospital screening pt has history of orthostatic BP which also appears to be impacting his sx. Pt reports monitoring blood pressure at home. Pt expressed challenging anterior/posterior with the wobble board, more so with eyes closed. Pt was asymptomatic with [place] screening however due to pt's significant cardiac history of triggering of sx with cervical extension, he may benefit from further cardiac workup including US of carotid arteries due to severe sx with cervical extnesion. Pt will be placed on hold at PT at this time until he can establish care with a new transportation modeler. Pt has inquired about status of referral to neurology re: his new Meniere's disease diagnosis. Addendum 04/15/24: Patient was scheduled for an appt this date however it was cancelled due to cardiac concerns (pt awaiting start of care with new transportation modeler). Therapist called patient to see if he established care with new transportation modeler- pt states he had an US of his left lower leg has a follow up with his vascular MD. Due to ongoing sx elicited with cervical extension, history of: cardiac concerns therapist educated patient in recommendation to seek out US of carotids/and or discuss with transportation modeler/PCP. Pt exhibits negative Bernard-pike screening, ongoing (+) orthostatic screening at time of PT eval. Pt states he is due to see his PCP in May, inquired about establishing care with neurologist (pt states PCP was speaking of placing order for neurology due to new diagnosis of Meniere's disease). Pt reports some relief with initial steroid medication which was prescribed from his PCP. Patient was educated therapist would relay his telephone inquiry about obtaining a neurology referral with his PCP Dr. Colindres. Pt is a RHD 72 y/o male with PMH significant for cardiac history and ID with recent diagnosis of Meniere's disease following history of acute hospitalization on 02/12/24-02/13/24 for acute vertigo sx. History of referred to PT for treatment of R42.0 Dizziness and giddiness, H81.09 Meniere's disease, unspecified ear with referring provider by Dr. Colindres on 02/28/24. Pt exhibits decreased static/dynamic balance and reports he constantly Feels like I have been drinking or walking on a boat. Upon screen, pt had (+) orthostatic BP screening and is awaiting an appt with a new transportation modeler. He has history of ID stent and reports is awaiting his yearly further vascular screening (states he is establishing care with a new provider). He reports pain in his entire L LE feels like it did in my chest when I had a blockage. Pt exhibits negative [place] Bernard-pike testing with no nystagmus noted. Pt states he is awaiting a neurology appt and is awaiting an appt with a retinal specialist (L eye). He reports history of repeated head traumas through this life including tree branches/baseball bats, wind-toth/ and tire-irons with history of multiple incident LOC. He expresses tinnitus in L ear, pressure/fullness in his ears, reports visual changes. Pt expresses some improvement with 10 day course of prednisone (since finishing he states he has been noting a trend of his symptoms). 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 Pt has decreased tolerance for head movements (flex>ext worse than cervical rotation>side-bending). Pt was advised to complete his cardiology appt (in April) and work to obtain a neurology consult. Pt is scheduled to see Dr. Colindres again in May. Pt prognosis for gain in balance with PT is fair based. diagnosis and complexity of patient. Pt was noted to express sx of fatigue at night, intolerance for walking around in the dark, and losses of balance which cause him to stumble and near fall. He denies any history of recent falls. PT Plan: Pt to establish care with cardiology (APRIL), see retina specialist (April), no appt with neuro yet to discuss with PCP and inquire on referral for this Short Term Goals: 1. Pt will transition from sit<>stand with improved awareness of safety/vertigo sx. 2. Ascend/descend a 6 inch step with good dynamic balance. Bonding Machine Tender Goals: 1. Pt will express 20% improvement in DHI. 2. Pt will demonstrate I in self care/safety with transfers/mobility. Electronically signed by: Mayi Almonte, PT, DPT
== END 2024-09-12 10:23 | disposition home or self-care (01) ==
LOC: HO.PTWFD 13:00
PROVIDERS: PCP Family Medicine; Visit Provider Family Medicine
DX: H81.09 Meniere's disease, unspecified ear (principal)
CPT/HCPCS: 97110; 97163; 97530

== ENCOUNTER 2024-04-02 15:18 | Outpatient (REF) | payer MEDICARE, OTHER, SELFPAY ==
--- NOTE | ~2024-04-02 | CT_ITS ---
EXAMINATION: CT ABDOMEN AND PELVIS WITHOUT AND WITH CONTRAST CLINICAL INFORMATION: Question of renal mass COMPARISON: Renal ultrasound from 11/28/2023 TECHNIQUE: Multidetector volumetric imaging was performed of the abdomen and pelvis before and after the IV administration of 17 mL of Omnipaque 350 intravenous contrast. Sagittal and coronal reformatted images were obtained on the technologist's workstation. This CT examination was performed using dose optimization techniques as appropriate, variously including the following: *Automated exposure control *Adjustment of mA and/or kV according to patient size (this includes techniques or standardized protocols for targeted exams where dose is matched to indication/reason for exam; i.e. extremities or head) *Use of iterative reconstruction technique DLP: 525 mGy-cm FINDINGS: LUNG BASES: The visualized lung bases are unremarkable. LIVER, GALLBLADDER, AND BILIARY TREE: The liver is normal in size, shape, and attenuation. No focal hepatic lesion or biliary ductal dilatation is present. There is 0.7 cm nonenhancing lesion in the right lobe of the liver is likely cyst. The gallbladder is unremarkable with no evidence of radiopaque gallstones, gallbladder wall thickening, or obvious pericholecystic inflammatory changes. PANCREAS: Unremarkable SPLEEN: Spleen is mildly enlarged measured 13 cm. ADRENAL GLANDS: Unremarkable KIDNEYS AND URETERS: Right kidney revealed exophytic simple cyst in the upper pole, located medially and measured 3.5 x 3.3 cm. There is lower pole exophytic cyst measured 1.7 x 1.4 cm. There is linear vascular calcification seen but no nephrolithiasis. There are small parapelvic cysts. There is mild perinephric stranding. Left kidney is unremarkable. There is mild perinephric stranding bilaterally BLADDER: Unremarkable GASTROINTESTINAL TRACT: The small and large bowel are unremarkable. The appendix is unremarkable. ABDOMINAL WALL: No significant hernia is appreciated. LYMPH NODES: Normal VASCULAR: Unremarkable PELVIC VISCERA: There is prostate hypertrophy. OSSEOUS STRUCTURES: There is compression deformity of L1 vertebral body of indeterminate age with Schmorl's hernia. There is grade 1 anterior listhesis of L5 over S1 and bilateral pars defect CT/CT abdomen pelvis wo/w IV con IMPRESSION: 1. No evidence of renal masses. 2. Right renal cysts. 3. Mild splenomegaly. 4. Prostate hypertrophy. 5. Compression deformity of L1 vertebral body of indeterminate age. 6. Grade 1 anterolisthesis of L5 over S1 and bilateral pars defect at L5-S1. Fleischner guidelines were followed.
[2024-04-03 07:37] LABS: Creatinine POC 1.4 mg/dL (0.5-1.4); GFR POC 53
== END 2024-04-02 15:19 | disposition home or self-care (01) ==
LOC: HO.CT 15:18
PROVIDERS: PCP Family Medicine; Visit Provider Nurse Practitioner Family
DX: N28.89 Other specified disorders of kidney and ureter (principal)
CPT/HCPCS: 74178; 82565

== ENCOUNTER 2024-04-04 13:02 | Outpatient (REF) | payer MEDICARE, OTHER, SELFPAY ==
[2024-04-04 15:32] LABS: Blood Urea Nitrogen 24 mg/dL (9-16); Estimated Glomerular Filt Rate > 60
== END 2024-04-04 13:03 | disposition home or self-care (01) ==
LOC: HO.WFDLDS 13:02
PROVIDERS: Visit Provider Nurse Practitioner Family
DX: N28.1 Cyst of kidney, acquired (principal)
CPT/HCPCS: 36415; 82565; 84520

== ENCOUNTER → 2024-04-10 13:14 | Outpatient (BNVA) | payer MEDICARE, OTHER, SELFPAY | PROVIDERS: PCP Family Medicine; Visit Provider Nurse Practitioner Family | DX: N40.1 Benign prostatic hyperplasia with lower urinary tract symptoms (principal); R39.12 Poor urinary stream; R35.1 Nocturia; N28.1 Cyst of kidney, acquired; Z79.899 Other long term (current) drug therapy | CPT/HCPCS: 81003; 99212 ==

== ENCOUNTER 2024-04-25 13:53 | Outpatient (AMB) | payer MEDICARE, OTHER, SELFPAY ==
--- NOTE | 2024-04-25 14:03 | A.OFFVIS_ITS ---
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/Old myocardial infarction Intake Note: New patient old HI feeling good only time he has a problem is breathing cold Cat Scan Tech Required: No Allergies cat dander Allergy (Mild, Verified 04/10/24 14:26) bumps on skin, eyes and nose closes Latex, Natural Rubber Allergy (Mild, Verified 04/10/24 14:26) itchy skin No Known Drug Allergies Allergy (Unknown, Verified 04/10/24 14:26) Unknown pollen Allergy (Mild, Uncoded 04/10/24 14:26) Unknown Medication List - Last Reconciled 04/25/24 by Suman Fraga MD aspirin (Adult Aspirin Regimen) 81 mg PO DAILY atorvastatin 40 mg PO BEDTIME cyclobenzaprine 10 mg PO BID PRN 10 days garlic 1,000 mg PO DAILY magnesium 200 mg PO DAILY meclizine 25 mg PO TID PRN mecobalamin (vitamin B12) 1,000 mcg sublingual DAILY metoprolol succinate ER 50 mg PO DAILY 90 days naproxen 500 mg PO BID PRN 30 days omega 2-jax-abr-fish oil 1,200 (144-216) mg (Fish Oil) caps PO tamsulosin 0.4 mg PO BEDTIME 30 days thiamine HCl (vitamin B1) 100 mg PO DAILY valsartan 40 mg PO BEDTIME vitamin K2 100 mcg PO DAILY HPI Comments Details: Thank you for referring Abdirahman in cardiology consultation today for management of coronary artery disease. He is a pleasant 73-year-old male who is very active and does his usual activity without any restriction. 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 He subsequent underwent stenting of the mid RCA with drug-eluting stent and was told that he had a myocardial infarction while on the table. Although he did not suffer any significant myocardial injury. He subsequently did well and symptoms resolved. However few years later he continued to have symptoms of exertional chest tightness when he did heavy workload and he underwent a stress test which was mildly abnormal and subsequently underwent a cardiac catheterization which showed similar anatomy with mild InStent restenosis of the RCA with mild progression in the circumflex disease. He said he has been doing well. He was tried on nitrate therapy but developed headaches and he is currently not on nitrates therapy. Currently he is taking only metoprolol. Patient says last winter when he was hunting with a backpack and walking up the hill he developed chest tightness. However since then he has had no recurrent symptoms. He said he remains very active. Takes all his medications. Last LDL last year was 55. No repeats this year. He takes all his medications. Blood pressure at home usually at 124/68. Patient says that recently he has developed dizziness which is quite limiting for him. This has been diagnose at [facility], currently undergoing physical therapy. [facility] Medical History CAD (coronary artery disease) History of HI (myocardial infarction) Hypertension No pertinent past medical history Surgical History Stented coronary artery H/O removal of cyst H/O shoulder surgery Hx of hernia repair Status post surgical removal of neoplasm of skin Hx of appendectomy Hx of cataract surgery Family History Father Heart problem Mother Heart problem Social History Household Members: Family Both parents involved: No Caregiver staying overnight: No Housing: House Are you a primary caregiver assisted living to a significant other at home: No Do you presently have visiting nurse or other home services: No 75 years or older and lives alone: No Alcohol intake: current Alcohol intake frequency: a few times a month Alcohol type: beer and wine Patient Tobacco Use Status: Former Tobacco user Tobacco use type: Cigar e-Cigarette/Vaping Use: Never Used service: No Current occupational status: employed 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 [employer] Current occupational exposures/hazards: No Cognitive needs: No Hearing needs: No Vision needs: Yes Review of Systems Const Denies chills, Denies daytime sleepiness, Denies fatigue, Denies fever(s), Denies frequent falls, Denies poor appetite, Denies snoring, Denies stops breathing during sleep, Denies weakness, Denies weight gain and Denies weight loss Eyes Denies loss of vision ENT Denies dizziness and Denies hearing loss Card Denies chest pain, Denies claudication, Denies leg edema, Denies lightheadedness, Denies palpitations, Denies dyspnea, Denies dyspnea on exertion and Denies orthopnea Resp Denies cough, Denies excessive phlegm production, Denies dyspnea, Denies dyspnea on exertion, Denies snoring and Denies wheezing GI Denies abdominal pain, Denies hematochezia, Denies change in bowel habits, Denies nausea and Denies vomiting Denies dysuria and Denies urinary frequency Musc Denies arthralgias, Denies muscle weakness, Denies numbness and Denies other (frequent falls) Skin/Breast Denies nail changes and Denies rash Neuro Denies Abnormal speech present, Denies dizziness, Denies frequent falls, Denies loss of vision, Denies memory loss, Denies numbness and Denies weakness Psych Denies depression and Denies memory loss Endo Denies fatigue and Denies palpitations Jean/Lymph Reports easy bruising and Reports other (anemia) Aller/Immun Denies wheezing Physical Exam Vital Signs: Last Vital Signs Pulse 63 04/25/24 14:04 BP 120/80 04/25/24 14:04 BMI result Body Mass Index 21.8 Const General: cooperative, comfortable, no acute distress, well developed, alert, awake and Physically active Nutritional Appearance: average body habitus and well nourished Orientation/consciousness: patient oriented x3 Limitations: no limitations HEENT Head: Yes normocephalic and Yes atraumatic Neck Neck: Yes trachea midline, Yes supple and Yes no JVD Carotids: no bruits Resp Effort & Inspection: normal respiratory effort Auscultation: clear to auscultation bilaterally Cardio Jugular venous distension: no JVD Palpation: normal PMI Rate: regular rate Rhythm: regular rhythm Heart sounds: S1 normal heart sound present, S2 normal heart sound present, no click, no gallops, no murmurs and no rubs GI Auscultation: normal bowel sounds Skin General skin exam: no rashes or lesions noted Neuro General: patient oriented x3 and no focal motor deficits Speech: No Abnormal speech present Extrem General: Yes no clubbing, cyanosis or edema Psych Appearance: grossly normal Assessment & Plan Assessment & Plan (1) CAD (coronary artery disease): Code(s): I25.10 - Atherosclerotic heart disease of [place] coronary artery without angina pectoris Category: Medical Qualifiers: Coronary Disease-Associated Artery/Lesion type: unspecified vessel or lesion type [place] vs. transplanted heart: [place] heart Associated angina: unspecified whether angina present Qualified Code(s): I25.10 - Atherosclerotic heart disease of [place] coronary artery without angina pectoris Plan: Chronic CAD with prior drug-eluting stent to RCA with chronic total occlusion of the PDA which is not very life-limiting at this point time. He maintains very high level of activity without any significant restricting symptoms. I had a very long discussion about pathophysiology of coronary artery disease as well as pathophysiology of angina. He is advised to call me with worsening symptoms of anginal sounding chest discomfort. He understands agrees. For now continue aggressive medical therapy. Continue low-dose aspirin therapy for life. Continue high-intensity statin therapy. Target goal LDL closer to 60 mg/dL. Continue aggressive blood pressure control which currently appears to be well optimized on current valsartan and metoprolol therapy. He does follow with vascular surgery for claudication but he said this is non limiting at this point time and management has been medical and increase activity level. I have advised him to maintain activity level as tolerated. He does have developed recent symptoms of dizziness and with his diffuse atherosclerotic this will suggest carotid duplex to rule out any significant bilateral carotid artery stenosis. Understands and agrees. (2) Bifascicular block: Code(s): I45.2 - Bifascicular block Category: Medical Plan: Bifascicular block on the EKG. Clinically no symptoms related to it. Continue to monitor by annual EKG. No indication for intervention such as pacing. Will follow up in the clinic in 1 year's time, sooner p.r.n.. Thank you for allowing me to partake in his care Orders: Orders US carotid duplex BI Today I65.23 - Occlusion and stenosis of bilateral carotid arteries Lipid Panel Today I25.10 - Atherosclerotic heart disease of [place] coronary artery without angina pectoris Coding Level of Care Code New Pt Level 4 (23238) Diagnoses Coronary artery disease involving [place] heart, unspecified vessel or lesion type, unspecified whether angina present I25.10 Coronary Disease-Associated Artery/Lesion type: unspecified vessel or lesion type [place] vs. transplanted heart: [place] heart Associated angina: unspecified whether angina present Bifascicular block I45.2
[2024-04-25 14:04] VITALS: BP 120/80; PULSE 63; BMI 21.8
== END 2024-04-25 14:52 | disposition home or self-care (01) ==
PROVIDERS: PCP Family Medicine; Visit Provider Internal Medicine Cardiovascular Disease
DX: I25.10 Atherosclerotic heart disease of native coronary artery without angina pectoris (principal); I45.2 Bifascicular block
CPT/HCPCS: 99204

== ENCOUNTER → 2024-04-25 13:53 | Outpatient (BNVA) | payer MEDICARE, OTHER, SELFPAY | PROVIDERS: PCP Family Medicine; Visit Provider Internal Medicine Cardiovascular Disease | DX: I25.10 Atherosclerotic heart disease of native coronary artery without angina pectoris (principal); I65.23 Occlusion and stenosis of bilateral carotid arteries; I45.2 Bifascicular block | CPT/HCPCS: 99202 ==

== ENCOUNTER 2024-05-14 11:27 | Outpatient (AMB) | payer MEDICARE, OTHER, SELFPAY ==
--- NOTE | 2024-05-14 11:35 | A.OFFPC_ITS ---
Vital Signs 05/14/24 11:41 Height 5 ft 10 in Weight 167 lb 2 oz BMI 24.0 BP 110/54 L Blood Pressure Location Rt brachial Position Sitting Respiration 12 Pulse 55 Pulse Source Pulse Oximeter Temp 98 F Temp Source Tympanic Pulse Oximetry (%) 97 Oxygen Delivery Method Room Air Intake Visit Reasons: f/u hypertension, chronic conditions Intake Note: follow up with hypertention Allergies cat dander Allergy (Mild, Verified 05/14/24 11:37) bumps on skin, eyes and nose closes Latex, Natural Rubber Allergy (Mild, Verified 05/14/24 11:37) itchy skin No Known Drug Allergies Allergy (Unknown, Verified 05/14/24 11:37) Unknown pollen Allergy (Mild, Uncoded 04/10/24 14:26) Unknown Medication List - Last Reconciled 05/14/24 by Hector Colindres MD aspirin (Adult Aspirin Regimen) 81 mg PO DAILY atorvastatin 40 mg PO BEDTIME cyclobenzaprine 10 mg PO BID PRN 10 days garlic 1,000 mg PO DAILY magnesium 200 mg PO DAILY mecobalamin (vitamin B12) 1,000 mcg sublingual DAILY metoprolol succinate ER 50 mg PO DAILY 90 days omega 5-how-wod-fish oil 1,200 (144-216) mg (Fish Oil) caps PO tamsulosin 0.4 mg PO BEDTIME 30 days thiamine HCl (vitamin B1) 100 mg PO DAILY valsartan 40 mg PO BEDTIME vitamin K2 100 mcg PO DAILY Tobacco use date assessed: 02/28/24 Dental Screening Dental Screen Date: 02/08/24 HPI f/u hypertension, chronic conditions HPI Details 73 y/o male presents to f/u hypertension , chronic conditions. Hx of CAD and recently followed up with Cardiology Dr. Fraga. Blood pressure today 110/50. He is on valsartan 40mg. Pt reports tinnitus has worsened recently. [facility] Medical History (Updated 05/14/24 @ 11:55 by Hunter Kenny) Hypertension CAD (coronary artery disease) History of CA (myocardial infarction) No pertinent past medical history Surgical History Stented coronary artery H/O removal of cyst H/O shoulder surgery Hx of hernia repair Status post surgical removal of neoplasm of skin Hx of appendectomy Hx of cataract surgery Family History Father Heart problem Mother Heart problem Social History Household Members: Family Both parents involved: No Caregiver staying overnight: No Housing: House Are you a primary career education teacher to a significant other at home: No Do you presently have visiting nurse or other home services: No 75 years or older and lives alone: No Alcohol intake: current Alcohol intake frequency: a few times a month Alcohol type: beer and wine Patient Tobacco Use Status: Former Tobacco user Tobacco use type: Cigar e-Cigarette/Vaping Use: Never Used service: No Current occupational status: employed 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 Henry Tony, Angie Funes, Lito Jean-Baptiste and colleagues, with an educational kinza from [employer]. Review of Systems Const Denies chills, Denies fatigue, Denies fever(s), Denies headache(s) and Denies weakness ENT Denies dizziness and Denies headache(s) Card Denies dyspnea Resp Denies cough, Denies dyspnea, Denies wheezing and Denies other (shortness of breath) Musc Denies numbness and Denies tingling Neuro Denies dizziness, Denies headache(s), Denies numbness, Denies tingling and Denies weakness Psych Denies anxiety and Denies depression Endo Denies fatigue Aller/Immun Denies wheezing Physical exam (Primary Care) Vital Signs: Last Vital Signs Temp 98 F 05/14/24 11:41 Pulse 55 05/14/24 11:41 Resp 12 05/14/24 11:41 BP 100/50 L 05/14/24 11:42 Pulse Ox 97 05/14/24 11:41 Oxygen Delivery Method Room Air 05/14/24 11:41 BMI result Body Mass Index 24.0 Tobacco/Smoking Status: Tobacco use Status Tobacco use date assessed 02/28/24 05/14/24 11:36 Patient Tobacco Use Status Former Tobacco user 05/14/24 11:36 Tobacco use type Cigar 05/14/24 11:36 e-Cigarette/Vaping Use Never Used 05/14/24 11:36 Thrive Assessment: Date of Thrive Assessment Date Thrive assessed 02/13/24 05/14/24 11:36 Const General: well developed; No acute distress Nutritional Appearance: well nourished Orientation/consciousness: patient oriented x3 HENMT Head: Yes normocephalic and Yes atraumatic Eyes General: appearance normal, both eyes and all related structures Pupils: Equal, round and reactive pupils present EOM: EOMs intact bilaterally Resp Effort & Inspection: normal respiratory effort Neuro General: patient oriented x3 and gait normal Cranial nerves: Yes Equal, round and reactive pupils present Psych Affect: normal affect Assessment and Plan Assessment & Plan (1) Hypertension: Code(s): I10 - Essential (primary) hypertension Qualifiers: Hypertension type: primary hypertension Qualified Code(s): I10 - Essen tial (primary) hypertension Plan: Blood?pressure?is?controlled Goal?is?less?than?130/80 Encouraged?good?hydration Continue?current?medication (2) CAD (coronary artery disease): Code(s): I25.10 - Atherosclerotic heart disease of [place] coronary artery without angina pectoris Qualifiers: Associated angina: unspecified whether angina present Coronary Disease- Associated Artery/Lesion type: unspecified vessel or lesion type [place] vs. transplanted heart: [place] heart Qualified Code(s): I25.10 - Atherosclerotic heart disease of [place] coronary artery without angina pectoris Plan: Stable Can?follow-up?with?Cardiology?as?recommended (3) Vertigo: Code(s): R42 - Dizziness and giddiness Plan: Patient?is?diagnosed?with?Meniere's?disease?and?has?vertigo?and?tinnitus Follow-up?with?Neurology?is?scheduled Patient?would?like?2nd?opinion?regarding?tinnitus-see?below (4) Tinnitus: Code(s): H93.19 - Tinnitus, unspecified ear Plan: Rather?severe?bilateral?tinnitus Does?have?an?appointment?with?Neurology?and?I?advised?he?follow-up?with?them?but ?he?would ?like?a?referral?to?ENT?to?see?if?there?is?anything?more?he?can?do?regarding?alejandro morel Referred Orders: Orders Microalbumin, Random (w Creat) 2 Months I10 - Essential (primary) hypertension Prostate Specific Antigen Scr 2 Months Z12.5 - Encounter for screening for malignant neoplasm of prostate TSH reflex Free T4 2 Months Z00.00 - Encounter for general adult medical examination without abnormal findings Comprehensive [place]. Panel Fast 2 Months Z00.00 - Encounter for general adult medical examination without abnormal findings Complete Blood Count Auto Diff 2 Months Z00.00 - Encounter for general adult medical examination without abnormal findings UA and rflx microscopic 2 Months Z00.00 - Encounter for general adult medical examination without abnormal findings Referrals Ear/Nose/Throat Referral H81.09 - Meniere's disease, unspecified ear, H93.19 - Tinnitus, unspecified ear Coding Level of Care Code Est Pt Level 3 (41771) Diagnoses Primary hypertension I10 Hypertension type: primary hypertension Coronary artery disease involving [place] heart, unspecified vessel or lesion type, unspecified whether angina present I25.10 Associated angina: unspecified whether angina present Coronary Disease-Associated Artery/Lesion type: unspecified vessel or lesion type [place] vs. transplanted heart: [place] heart Vertigo R42 Tinnitus H93.19
[2024-05-14 11:41] VITALS: BP 110/54; PULSE 55; RESP 12; TEMP 36.6; O2SAT 97; BMI 24.0
== END 2024-05-14 12:03 | disposition home or self-care (01) ==
PROVIDERS: PCP Family Medicine; Visit Provider Family Medicine
DX: I10 Essential (primary) hypertension (principal); I25.10 Atherosclerotic heart disease of native coronary artery without angina pectoris; R42 Dizziness and giddiness; H93.13 Tinnitus, bilateral
CPT/HCPCS: 99213

== ENCOUNTER 2024-05-14 12:51 | Outpatient (REF) | payer MEDICARE, OTHER, SELFPAY ==
--- NOTE | ~2024-05-14 | US_ITS ---
EXAMINATION: US EXTRACRANIAL CAROTID DUPLEX, BILATERAL CLINICAL INFORMATION: Occlusion or stenosis of the bilateral carotid arteries COMPARISON: CTA head and neck 02/12/2024 TECHNIQUE: Real-time ultrasound and Doppler techniques (integrating B-mode 2-D vascular images, Doppler spectral analysis and color-flow Doppler imaging) were utilized to interrogate the extracranial carotid arteries, the vertebral arteries and proximal subclavian arteries bilaterally. The degree of stenosis is determined by criteria similar to NASCET. FINDINGS: Right Side: 1. There is no atherosclerotic plaque seen in the bifurcation/proximal ICA region. 2. The common carotid artery PSV proximally is 96.9 cm/s and distally 70.3 cm/s. 3. The proximal internal carotid artery velocities are 77.4 cm/s systolic and 26.6 cm/s diastolic. 4. The proximal external carotid artery PSV is 109 cm/s. 5. The vertebral artery shows antegrade flow. 6. The subclavian artery waveforms are normal. Left Side: 1. There is mild atherosclerotic plaque seen in the bifurcation/proximal ICA region. 2. The common carotid artery PSV proximally is 91.1 cm/s and distally 63.1 cm/s. 3. The proximal internal carotid artery velocities are 71.5 cm/s systolic and 26.6 cm/s diastolic. 4. The proximal external carotid artery PSV is 81.1 cm/s. 5. The vertebral artery shows antegrade flow. 6. The subclavian artery waveforms are normal. US/US carotid duplex BI IMPRESSION: 1. RIGHT: Normal right internal carotid artery without atherosclerotic plaque or hemodynamically significant stenosis. 2. LEFT: Minimal, non-hemodynamically significant stenosis of the proximal left internal carotid artery corresponding to a 0-49% stenosis by velocity criteria.
== END 2024-05-14 12:52 | disposition home or self-care (01) ==
LOC: HO.US 12:51
PROVIDERS: PCP Family Medicine; Visit Provider Internal Medicine Cardiovascular Disease
DX: I65.23 Occlusion and stenosis of bilateral carotid arteries (principal)
CPT/HCPCS: 93880

== ENCOUNTER 2024-08-26 08:52 | Outpatient (REF) | payer MEDICARE, OTHER, SELFPAY ==
[2024-08-26 11:28] LABS: MANUAL DIFF FLAG NO
[2024-08-26 12:00] LABS: Basophils Absolute Auto 0.1 X10*3/uL (0.0-0.2); Basophils Percent Auto 1.8 % (0-2); Eosinophils Absolute Auto 0.1 X10*3/uL (0.0-0.4); Eosinophils Percent Auto 0.9 % (0-4); Hematocrit 39.7 % (42.0-52.0); Hemoglobin 12.9 g/dl (14.0-18.0); Imm Gran Abs Auto 0.02 X10*3/uL (0.00-0.03); Imm Gran Pct Auto 0.4 % (0.0-0.4); Lymphocytes Absolute Auto 1.8 X10*3/uL (1.2-4.9); Lymphocytes Percent Auto 33.7 % (20-40); Mean Corpuscular HGB Conc 32.5 g/dl (31.0-36.0); Mean Corpuscular Hemoglobin 28.2 pg (27.0-33.0); Mean Corpuscular Volume 86.9 fL (80.0-98.0); Mean Platelet Volume 11.4 fL (9.4-12.4); Monocytes Absolute Auto 0.4 X10*3/uL (0.1-1.2); Monocytes Percent Auto 6.8 % (2-11); Neutrophils Absolute Auto 3.1 x10*3/uL (2.0-8.3); Neutrophils Percent Auto 56.4 % (45-73); Platelet Count 261 X10*3/uL (160-400); Red Blood Count 4.57 X10*6/uL (4.60-5.80); Red Cell Distribution Width 13.2 % (11.0-16.0); White Blood Count 5.4 X10*3/uL (4.8-10.8)
[2024-08-26 12:20] LABS: Alanine Aminotransferase 26 U/L (0-40); Albumin Level 4.2 g/dL (3.5-5.0); Alkaline Phosphatase 64 U/L (39-117); Anion Gap 8 (12-20); Aspartate Amino Transferase 33 U/L (5-37); Bilirubin Total 0.9 mg/dL (0.0-1.0); Blood Urea Nitrogen 20 mg/dL (9-16); Calcium 9.1 mg/dL (8.4-10.2); Carbon Dioxide 26 mmol/L (22-29); Chloride 109 mmol/L (96-108); Cholesterol 108 mg/dL (<200); Estimated Glomerular Filt Rate > 60; Glucose Fasting 108 mg/dL (60-99); HDL Cholesterol 40 mg/dL (>40); LDL Cholesterol Calculated 60 mg/dL (<100); Potassium 4.3 mmol/L (3.3-5.1); Sodium 139 mmol/L (135-145); Total Protein 6.5 g/dL (6.5-8.0); Triglycerides 41 mg/dL (<150)
[2024-08-26 12:30] LABS: TSH reflex Free T4 1.75 uIU/mL (0.32-4.0)
[2024-08-26 12:31] LABS: Prostate Specific Antigen Scr 0.98 ng/mL (<0.05-4.0)
[2024-08-26 12:32] LABS: Prostate Specific Antigen 0.98 ng/mL (<0.05-4.0)
[2024-08-26 14:16] LABS: Appearance Urine Clear; Color Urine Yellow; Glucose Urine UA Negative (Negative); Leukocyte Esterase Urine Negative (Negative); Nitrite Urine Negative (Negative); PH 5.5 (5.0-9.0); Urine Blood Negative (Negative); Urine Ketones Negative (Negative); Urine Protein Negative (Neg-Trace)
[2024-08-26 14:42] LABS: Creatinine Urine 60.67 mg/dL; Microalbumin Urine < 5.0 mg/L
== END 2024-08-26 08:53 | disposition home or self-care (01) ==
LOC: HO.WFDLDS 08:52
PROVIDERS: Internal Medicine Cardiovascular Disease; Referring Provider Nurse Practitioner Family; Visit Provider Family Medicine
DX: Z00.00 Encounter for general adult medical examination without abnormal findings (principal); I25.10 Atherosclerotic heart disease of native coronary artery without angina pectoris; I10 Essential (primary) hypertension; N40.0 Benign prostatic hyperplasia without lower urinary tract symptoms; Z12.5 Encounter for screening for malignant neoplasm of prostate
CPT/HCPCS: 36415; 80053; 80061; 81003; 82570; 84153; 84443; 85025

== ENCOUNTER 2024-08-29 13:50 | Outpatient (AMB) | payer MEDICARE, OTHER, SELFPAY ==
--- NOTE | 2024-08-29 14:05 | A.OFFPC_ITS ---
Vital Signs 08/29/24 14:10 Height 5 ft 10 in Weight 169 lb 6 oz BMI 24.3 BP 120/54 L Blood Pressure Location Rt brachial Position Sitting Respiration 14 Pulse 50 Pulse Source Pulse Oximeter Temp 97.6 F Temp Source Oral Pulse Oximetry (%) 95 Oxygen Delivery Method Room Air Intake Visit Reasons: Extended exam with f/u labs and health maint. Intake Note: extended exam Allergies cat dander Allergy (Mild, Verified 08/29/24 14:05) bumps on skin, eyes and nose closes Latex, Natural Rubber Allergy (Mild, Verified 08/29/24 14:05) itchy skin No Known Drug Allergies Allergy (Unknown, Verified 08/29/24 14:05) Unknown pollen Allergy (Mild, Uncoded 04/10/24 14:26) Unknown Tobacco use date assessed: 08/29/24 Fall risk assessment: 2 + Falls in past year Last assessed Fall Risk: 08/29/24 Dental Screening Dental Screen Date: 08/29/24 Did you have a dental visit in the last 12 months?: Yes Did you have a dental problem in the last 6 months where you did not have access to dental care?: No Was dental information given to patient?: Patient has dentist HPI Extended exam with f/u labs and health maint. HPI Details 73 y/o male presents for an extended exa m Labs drawn 08/26/24. Reviewed labs with pt. Mild anemia. Triglycerides 41. TC 108. LDL 60. HDL 40. PSA 0.98. Reports chest pain when he was exerting himself walking up the hill. Notes he has an appt. with cardiology in April. Reports some drooping of his eye. Denies any confusion, difficulty speaking or any weakness. [facility] Medical History (Updated 08/29/24 @ 14:56 by Hector Colindres MD) Hypertension CAD (coronary artery disease) History of [place] (myocardial infarction) No pertinent past medical history Surgical History Stented coronary artery H/O removal of cyst H/O shoulder surgery Hx of hernia repair Status post surgical removal of neoplasm of skin Hx of appendectomy Hx of cataract surgery Family History (Updated 08/29/24 @ 14:08 by SAHARA Padilla) Father Heart problem Mother Heart problem Sister Mini stroke Social History Household Members: Family Both parents involved: No Caregiver staying overnight: No Housing: House Are you a primary senior caregiver to a significant other at home: No Do you presently have visiting nurse or other home services: No 75 years or older and lives alone: No Alcohol intake: current Alcohol intake frequency: a few times a month Alcohol type: beer and wine Patient Tobacco Use Status: Former Tobacco user Tobacco use type: Cigar e-Cigarette/Vaping Use: Never Used service: No Current occupational status: employed 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 1. Little interest or pleasure in doing things: not at all 2. Feeling down, depressed, or hopeless: several days 3. Trouble falling or staying asleep, or sleeping too much: several days 4. Feeling tired or having little energy: not at all 5. Poor appetite or overeating: several days 6. Feeling bad about yourself - or that you are a failure or have let yourself or your family down: several days 7. Trouble concentrating on things, such as reading the newspaper or watching television: not at all 8. Moving or speaking so slowly that other people could have noticed. Or the opposite - being so fidgety or restless that you have been moving around a lot more than usual: not at all 9. Thoughts that you would be better off or of hurting yourself in some way: not at all Total score: 4 Depression Screening Interpretation: Negative Depression Screening Done: Yes 22575 - PHQ-9 Billing: Yes Source: Developed by Drs. Henry Tony, Angie Funes, Lito Jean-Baptiste and colleagues, with an educational kinza from [employer]. Thrive Questionnaire Date Thrive assessed: 08/29/24 I am a: Patient What is your living situation today?: I have a steady place to live Within the past 12 months, did the food you bought not last and you didn't have the money to get more?: Never true Within the past 12 months, did you worry whether your food would run out before you got money to buy more?: Never true Do you have trouble paying for medicines?: No Do you have trouble getting transportation to medical appointments?: No Do you have trouble paying your heating and electricity bill?: No Do you have trouble taking care of your child, family member or friend?: No Do you have trouble with day-to-day activities such as bathing, preparing meals, shopping, managing finances, etc.?: No Are you currently unemployed and looking for a job?: No Are you interested in more education?: No Please select the resources that you would like help with: None Currently or been in a relationship where the following occur: No concerns reported THRIVE Score: 0 AUDIT C Alcohol Use Questionnaire (AUDIT-C) 1. How often do you have a drink containing alcohol?: 2-4 times a month 2. How many drinks containing alcohol do you have on a typical day when you are drinking?: 1 or 2 3. How often do you have six or more drinks on one occasion?: Never Total Score: 2 BUDDY-7 AMB Questionnaire BUDDY-7 Date BUDDY - 7 assessed: 08/29/24 Feeling nervous, anxious, or on edge: 1 = Several days Not being able to stop or control worryin = Several days Worrying too much about different things: 0 = Not at all Trouble relaxin = Not at all Being so restless that it is hard to sit still: 0 = Not at all Becoming easily annoyed or irritable: 1 = Several days Feeling afraid as if something awful might happen: 0 = Not at all Total BUDDY-7 score (0-4 normal; 5-9 mild; 10-14 moderate; 15-21 severe): 3 Source: Developed by Drs. Henry Tony, Angie Funes, Lito Jean-Baptiste and colleagues, with an educational kinza from [employer]. BUDDY-7 Assessment Billing BUDDY-7 Assessment Tool: BUDDY-7 Assessment 98137 Review of Systems Const Denies chills, Denies fatigue, Denies fever(s), Denies headache(s) and Denies weakness Eyes Denies change in vision ENT Denies dizziness and Denies headache(s) Card Reports chest pain, Reports chest pain with activity and Denies dyspnea Resp Denies cough, Denies dyspnea, Denies wheezing and Denies other (shortness of breath) GI Denies abdominal pain, Denies melena, Denies hematochezia, Denies change in bowel habits, Denies dyspepsia and Denies nausea Denies hematuria and Denies dysuria Musc Denies numbness and Denies tingling Skin/Breast Denies rash, Denies unusual bruising and Denies wounds Neuro Denies dizziness, Denies headache(s), Denies numbness, Denies Sensory deficit (Neuro), Denies tingling and Denies weakness Psych Denies anxiety and Denies depression Endo Denies fatigue Jean/Lymph Denies easy bleeding and Denies easy bruising Aller/Immun Denies wheezing Physical exam (Primary Care) Vital Signs: Last Vital Signs Temp 97.6 F 08/29/24 14:10 Pulse 50 08/29/24 14:10 Resp 14 08/29/24 14:10 BP 120/54 L 08/29/24 14:10 Pulse Ox 95 08/29/24 14:10 Oxygen Delivery Method Room Air 08/29/24 14:10 BMI result Body Mass Index 24.3 Tobacco/Smoking Status: Tobacco use Status Tobacco use date assessed 08/29/24 08/29/24 14:09 Patient Tobacco Use Status Former Tobacco user 08/29/24 14:09 Tobacco use type Cigar 08/29/24 14:09 e-Cigarette/Vaping Use Never Used 08/29/24 14:09 PHQ-9: PHQ-9 Score PHQ-9: Total score 4 08/29/24 14:09 Depression Screening Interpretation: Negative Thrive Assessment: Date of Thrive Assessment Date Thrive assessed 08/29/24 08/29/24 14:09 Currently or been in a relationship where the following occur: No concerns reported Const General: well developed; No acute distress Nutritional Appearance: well nourished Orientation/consciousness: patient oriented x3 HENMT Head: Yes normocephalic and Yes atraumatic Ears: hearing grossly normal bilaterally and TM's normal bilaterally General nose exam: Normal external nose present and Normal nares present Mouth: Normal oral and palatal mucosa present and moist mucous membranes Teeth and gingiva: dentition normal Throat: Yes posterior oropharynx normal Eyes General: appearance normal, both eyes and all related structures Pupils: Equal, round and reactive pupils present EOM: EOMs intact bilaterally Neck Neck: Yes normal visual inspection, Yes no lymphadenopathy and Yes trachea midline Thyroid: Thyroid normal Carotids: no bruits Lymphatic: no lymphadenopathy noted Chest Chest palpation & inspection: normal inspection of the chest Resp Effort & Inspection: normal respiratory effort Auscultation: clear to auscultation bilaterally Cardio Rate: regular rate Rhythm: regular rhythm Heart sounds: S1 normal heart sound present, S2 normal heart sound present, no gallops, no murmurs and no rubs Bruits: no abdominal aortic bruits and no carotid bruits GI Palpation (GI): No Abdominal aortic bruit present, Soft to palpation, nontender, No hepatosplenomegaly present and No Rebound tenderness present Auscultation: normal bowel sounds General: Yes no CVA tenderness Back/Spine/Pelvis Back: no CVA tenderness Cervical Spine: cervical ROM normal and No Cervical spine tenderness Thoracic/Lumbar Spine: thoraco-lumbar ROM normal, No pain with thoraco-lumbar ROM, No thoracic spinal tenderness and No lumbar spinal tenderness Skin Lesions: no lesions Rashes: no rashes Trauma: no lacerations or abrasions Wounds: no wounds Nails: normal Neuro General: patient oriented x3 and gait normal Cranial nerves: Yes Equal, round and reactive pupils present Cognition (Neuro): normal cognition Gait exam (Neuro): Normal gait present Motor exam (neuro): 5/5 motor strength present throughout Sensory Exam: No Sensory deficit (Neuro) Deep tendon reflexes (DTR's): Right patellar reflex intensity grade: 2+ and Left patellar reflex intensity grade: 2+ Extrem General: Yes normal to inspection and No edema Psych Appearance: grossly normal Affect: normal affect Attitude: cooperative Thought process: Normal thought process present Coding Level of Care Code Est Pt Level 4 (81102) Diagnoses Chest pain, exertional R07.9 Coronary artery disease involving [place] heart, unspecified vessel or lesion type, unspecified whether angina present I25.10 Associated angina: unspecified whether angina present Coronary Disease-Associated Artery/Lesion type: unspecified vessel or lesion type [place] vs. transplanted heart: [place] heart Screening for prostate cancer Z12.5 Primary hypertension I10 Hypertension type: primary hypertension Meniere disease H81.09 Screening for colon cancer Z12.11 Adult general medical exam Z00.00 Additional Codes BUDDY-7 Assessment Billing - BUDDY-7 Assessment Tool: BUDDY-7 Assessment 16441 ([id number]) PHQ-9 - 14533 - PHQ-9 Billing: Yes ([id number]) Assessment & Plan Assessment & Plan (1) Chest pain, exertional: Code(s): R07.9 - Chest pain, unspecified Category: Medical Plan: Patient?is?noting?more?frequent?episodes?of?chest?pain?on?exertion He?shared?with?me?that?he?was?told?global professional?that?his?stent?has?been narrowing EKG?today: ?Sinus?bradycardia?with?left?axis?deviation,?right?bundle-branch?block?no?high-g rade?the?no?ST?T-wave?changes. Unchanged?prior?EKG. He?has?an?appointment?cardiology 8?months?from now Will?ask?for?soon?appointment Advised?patient?not?to?exert?himself.??Advised?him?to?rest?when?he?has?any?chest ?pain and if it is?not?going?away?in?a?few?minutes?then?he?should?go?to?the?ED (2) CAD (coronary artery disease): Code(s): I25.10 - Atherosclerotic heart disease of [place] coronary artery without angina pectoris Category: Medical Qualifiers: Associated angina: unspecified whether angina present Coronary Disease- Associated Artery/Lesion type: unspecified vessel or lesion type [place] vs. transplanted heart: [place] heart Qualified Code(s): I25.10 - Atherosclerotic heart disease of [place] coronary artery without angina pectoris Plan: Control?blood?pressure?and?lipids Currently?as?exertional?chest?pain-see?above See?Cardiology?as?soon as?able (3) Screening for prostate cancer: Code(s): Z12.5 - Encounter for screening for malignant neoplasm of prostate Category: Medical Plan: PSA was wnl - will?continue?annual?screening (4) Hypertension: Code(s): I10 - Essential (primary) hypertension Category: Medical Qualifiers: Hypertension type: primary hypertension Qualified Code(s): I10 - Essential (primary) hypertension Plan: Blood?pressure?appears?well?controlled.??Goal?is?less?than?130/80 Continue?current?medication (5) Meniere disease: Code(s): H81.09 - Meniere's disease, unspecified ear Category: Medical Plan: Had?referred?patient?to?ENT?and?workup?is?underway Of?with?ENT?as?recommended (6) Screening for colon cancer: Code(s): Z12.11 - Encounter for screening for malignant neoplasm of colon Category: Medical Plan: referred to Dr Anderson - hoda for f/u colonoscopy (7) Adult general medical exam: Code(s): Z00.00 - Encounter for general adult medical examination without abnormal findings Category: Medical Plan: 73-year-old?male?presents?for?an?extended?exam Orders: Referrals Gastroenterology Referral Z12.11 - Encounter for screening for malignant neoplasm of colon
[2024-08-29 14:10] VITALS: BP 120/54; PULSE 50; RESP 14; TEMP 36.4; O2SAT 95; BMI 24.3
== END 2024-08-29 15:15 | disposition home or self-care (01) ==
PROVIDERS: PCP Family Medicine; Visit Provider Family Medicine
DX: R07.9 Chest pain, unspecified (principal); I25.10 Atherosclerotic heart disease of native coronary artery without angina pectoris; Z12.5 Encounter for screening for malignant neoplasm of prostate; I10 Essential (primary) hypertension; H81.09 Meniere's disease, unspecified ear; Z12.11 Encounter for screening for malignant neoplasm of colon; Z00.00 Encounter for general adult medical examination without abnormal findings

== ENCOUNTER → 2024-08-29 13:50 | Outpatient (BNVA) | payer MEDICARE, OTHER, SELFPAY | PROVIDERS: PCP Family Medicine; Visit Provider Family Medicine | DX: R07.9 Chest pain, unspecified (principal); I25.10 Atherosclerotic heart disease of native coronary artery without angina pectoris; I10 Essential (primary) hypertension; H81.09 Meniere's disease, unspecified ear | CPT/HCPCS: 96127; 99212 ==

== ENCOUNTER 2024-09-09 14:41 | Outpatient (REF) | payer MEDICARE, OTHER, SELFPAY ==
[2024-09-09 17:11] LABS: Hematocrit 39.8 % (42.0-52.0); Hemoglobin 12.9 g/dl (14.0-18.0); Mean Corpuscular HGB Conc 32.4 g/dl (31.0-36.0); Mean Corpuscular Hemoglobin 28.1 pg (27.0-33.0); Mean Corpuscular Volume 86.7 fL (80.0-98.0); Mean Platelet Volume 10.8 fL (9.4-12.4); Platelet Count 325 X10*3/uL (160-400); Red Blood Count 4.59 X10*6/uL (4.60-5.80); White Blood Count 6.8 X10*3/uL (4.8-10.8)
[2024-09-09 17:29] LABS: INTERNATIONAL NORM RATIO 1.1 (0.9-1.1); Prothrombin Time 12.4 SEC (10.9-12.4)
[2024-09-09 17:46] LABS: Anion Gap 13 (12-20); Blood Urea Nitrogen 25 mg/dL (9-16); Calcium 9.5 mg/dL (8.4-10.2); Carbon Dioxide 26 mmol/L (22-29); Chloride 107 mmol/L (96-108); Estimated Glomerular Filt Rate > 60; Glucose Random 119 mg/dL (60-115); Potassium 4.3 mmol/L (3.3-5.1); Sodium 142 mmol/L (135-145)
== END 2024-09-09 14:42 | disposition home or self-care (01) ==
LOC: HO.LAB 14:41
PROVIDERS: PCP Family Medicine; Visit Provider Internal Medicine Cardiovascular Disease
DX: R07.9 Chest pain, unspecified (principal)
CPT/HCPCS: 36415; 80048; 85027; 85610; 93005; 99212

== ENCOUNTER 2024-09-09 14:41 | Outpatient (AMB) | payer MEDICARE, OTHER, SELFPAY ==
[2024-09-09 14:47] VITALS: BP 120/74; PULSE 59; BMI 24.4
--- NOTE | 2024-09-09 14:47 | A.OFFVIS_ITS ---
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 Allergies cat dander Allergy (Mild, Verified 08/29/24 14:05) bumps on skin, eyes and nose closes Latex, Natural Rubber Allergy (Mild, Verified 08/29/24 14:05) itchy skin No Known Drug Allergies Allergy (Unknown, Verified 08/29/24 14:05) Unknown pollen Allergy (Mild, Uncoded 04/10/24 14:26) Unknown Medication List - Last Reconciled 09/09/24 by Suman Fraga MD aspirin (Adult Aspirin Regimen) 81 mg PO DAILY atorvastatin 40 mg PO BEDTIME garlic 1,000 mg PO DAILY magnesium 200 mg PO DAILY mecobalamin (vitamin B12) 1,000 mcg sublingual DAILY metoprolol succinate ER 50 mg PO DAILY 90 days omega 8-lkj-yxp-fish oil 1,200 (144-216) mg (Fish Oil) caps PO pantoprazole 40 mg PO DAILY thiamine HCl (vitamin B1) 100 mg PO DAILY valsartan 40 mg PO BEDTIME vitamin K2 100 mcg PO DAILY HPI Comments Details: Abdirahman comes for urgent visit today. He said while he went hunting this morning carrying a backpack and cold weather going up hill he felt squeezing sensation around his chest. This then resolved. He said with his usual walking up a flight of stairs and walking across the parking lot he did not get these symptoms. He is concerned about the symptoms as he had similar symptoms when he has it PCI 8 years ago. He has not had any symptoms at rest. Takes all his medications. [facility] Medical History Hypertension CAD (coronary artery disease) History of [place] (myocardial infarction) No pertinent past medical history Surgical History Stented coronary artery H/O removal of cyst H/O shoulder surgery Hx of hernia repair Status post surgical removal of neoplasm of skin Hx of appendectomy Hx of cataract surgery Family History Father Heart problem Mother Heart problem Sister Mini stroke Social History Household Members: Family Both parents involved: No Caregiver staying overnight: No Housing: House Are you a primary care professionals to a significant other at home: No Do you presently have visiting nurse or other home services: No 75 years or older and lives alone: No Alcohol intake: current Alcohol intake frequency: a few times a month Alcohol type: beer and wine Patient Tobacco Use Status: Former Tobacco user Tobacco use type: Cigar e-Cigarette/Vaping Use: Never Used service: No Current occupational status: employed 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 [employer] Current occupational exposures/hazards: No Cognitive needs: No Hearing needs: No Vision needs: Yes Review of Systems Const Denies chills, Denies fatigue, Denies fever(s), Denies frequent falls, Denies weakness, Denies weight gain and Denies weight loss ENT Denies dizziness Card Denies chest pain, Denies leg edema, Denies lightheadedness, Denies palpitations, Denies dyspnea, Denies dyspnea on exertion, Denies orthopnea and Denies other (loss of consciousness) Resp Denies cough, Denies dyspnea and Denies dyspnea on exertion GI Denies hematochezia and Denies change in stool character Musc Denies abnormal gait, Denies muscle weakness, Denies numbness, Denies radiating pain into limb and Denies tingling Neuro Denies Abnormal speech present, Denies abnormal gait, Denies dizziness, Denies frequent falls, Denies numbness, Denies tingling and Denies weakness Endo Denies fatigue and Denies palpitations Physical Exam Vital Signs: Last Vital Signs Pulse 59 09/09/24 14:47 BP 120/74 09/09/24 14:47 BMI result Body Mass Index 24.4 Const General: cooperative, comfortable, no acute distress, well developed, alert, awake and Physically active Nutritional Appearance: average body habitus and well nourished Orientation/consciousness: patient oriented x3 Limitations: no limitations HEENT Head: Yes normocephalic and Yes atraumatic Neck Neck: Yes trachea midline, Yes supple and Yes no JVD Carotids: no bruits Resp Effort & Inspection: normal respiratory effort Auscultation: clear to auscultation bilaterally Cardio Jugular venous distension: no JVD Palpation: normal PMI Rate: regular rate Rhythm: regular rhythm Heart sounds: S1 normal heart sound present, S2 normal heart sound present, no click, no gallops, no murmurs and no rubs GI Auscultation: normal bowel sounds Skin General skin exam: no rashes or lesions noted Neuro General: patient oriented x3 and no focal motor deficits Speech: No Abnormal speech present Extrem General: Yes no clubbing, cyanosis or edema Psych Appearance: grossly normal Office Procedures EKG Details: EKG shows normal sinus rhythm with right bundle and left anterior fascicular block with inferior Q-waves [id number], Complete Assessment & Plan Assessment & Plan (1) Chest pain, exertional: Code(s): R07.9 - Chest pain, unspecified Category: Medical Plan: Recurrent exertional chest pain in this elderly gentleman during strenuous work, hunting in very cold weather. Likelihood of progressive coronary artery disease is high. I have suggested him to avoid strenuous exertion at this point time and will pursue long-acting nitrate therapy as a dual antianginal therapy. Mechanism of action was discussed advised to continue metoprolol therapy. Continue aspirin therapy and high-intensity statin therapy. Will schedule him for cardiac catheterization to evaluate for progressive coronary disease and coronary anatomy and possible stent restenosis for possible PCI if so required. He otherwise maintains high level of activity and would benefit from aggressive interventional/medical therapy. This was discussed with him. He understands and agrees. We discussed the process of cardiac catheterization including risk, benefits, alternatives. He understands agrees. Will schedule this in near future. Follow up in the clinic after cardiac catheterization. Thank you for allowing me to partake in his care Orders: Orders Cardiac Cath LT w PCI 1 Week R07.9 - Chest pain, unspecified Complete Blood Count no Diff Today R07.9 - Chest pain, unspecified Basic Metabolic Panel Today R07.9 - Chest pain, unspecified Prothrombin Time INR Today R07.9 - Chest pain, unspecified Medications: New isosorbide mononitrate ER 30 mg PO DAILY 30 tabs 5RF R07.9 - Chest pain, unspecified Coding Level of Care Code Est Pt Level 4 (10203) Complex EM visit Add On G2211 Diagnoses Chest pain, exertional R07.9 CPT Codes EKG - CPT: 24443-[id number], Complete ([id number])
== END 2024-09-09 15:49 | disposition home or self-care (01) ==
PROVIDERS: PCP Family Medicine; Visit Provider Internal Medicine Cardiovascular Disease
DX: R07.9 Chest pain, unspecified (principal)
CPT/HCPCS: 93010; 99214; G2211

== ENCOUNTER → 2024-09-19 23:59 | Outpatient (BNV) | payer MEDICARE, OTHER, SELFPAY | PROVIDERS: PCP Family Medicine; Visit Provider Internal Medicine Cardiovascular Disease | DX: I20.89 Other forms of angina pectoris (principal) | CPT/HCPCS: 93458; 93571; 93572; 99152 ==

== ENCOUNTER 2024-10-03 13:55 | Outpatient (AMB) | payer MEDICARE, OTHER, SELFPAY ==
[2024-10-03 14:18] VITALS: BP 118/62; PULSE 55; BMI 24.4
--- NOTE | 2024-10-03 14:18 | A.OFFVIS_ITS ---
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: No Allergies cat dander Allergy (Mild, Verified 10/03/24 14:20) bumps on skin, eyes and nose closes Latex, Natural Rubber Allergy (Mild, Verified 10/03/24 14:20) itchy skin No Known Drug Allergies Allergy (Unknown, Verified 10/03/24 14:20) Unknown pollen Allergy (Mild, Uncoded 10/03/24 14:20) Unknown isosorbide Adverse Reaction (Uncoded 10/03/24 16:08) itchy watery eyes Medication List - Last Reconciled 10/03/24 by LANDON Blue aspirin (Adult Aspirin Regimen) 81 mg PO DAILY atorvastatin 40 mg PO BEDTIME garlic 1,000 mg PO DAILY isosorbide mononitrate ER 30 mg PO DAILY magnesium 200 mg PO DAILY mecobalamin (vitamin B12) 1,000 mcg sublingual DAILY metoprolol succinate ER 50 mg PO DAILY 90 days omega 6-yrx-ane-fish oil 1,200 (144-216) mg (Fish Oil) caps PO pantoprazole 40 mg PO DAILY thiamine HCl (vitamin B1) 100 mg PO DAILY valsartan 40 mg PO BEDTIME vitamin K2 100 mcg PO DAILY HPI HPI 2 wk s/p cath: Details: Mindy is a 74-year-old male with past medical history of hypertension, hyperlipidemia, impaired fasting glucose, bifascicular block, coronary artery disease, RCA stent, chronic occlusion of the PDA with good collaterals who recently reported exertional chest discomfort and underwent a cardiac catheterization and now presents for follow-up. Today he reports that since his last visit he has had a few more episodes of ex ertional chest discomfort. He says it happens in the cold weather when he is doing physical activity such as walking up a hill or loading wood into his outdoor wood heater. He tells me he was getting the symptoms last year in the cold weather as well but this year it is more intense. He did not have chest discomfort last summer. He did start the isosorbide as directed last visit. He states since taking it he has very itchy and watery eyes. He believes this is from the medication. He believes it may his chest discomfort a little bit. When he over exerts he will get shortness of breath. No shortness of breath at rest, no PND, orthopnea or edema. No palpitations that are concerning, no lightheadedness, presyncope, syncope, falls. Taking meds as directed. Right radial catheterization site is feeling good. He has been trying to cut back on his physical activity. [place] and does lots of activities outside. [facility] Medical History (Updated 10/03/24 @ 16:03 by LANDON Blue) Hypertension CAD (coronary artery disease) History of [place] (myocardial infarction) No pertinent past medical history Surgical History (Updated 10/03/24 @ 16:58 by LANDON Blue) History of cardiac cath Stented coronary artery H/O removal of cyst H/O shoulder surgery Hx of hernia repair Status post surgical removal of neoplasm of skin Hx of appendectomy Hx of cataract surgery Family History Father Heart problem Mother Heart problem Sister Mini stroke Social History Household Members: Family Both parents involved: No Caregiver staying overnight: No Housing: House Are you a primary care management associate to a significant other at home: No Do you presently have visiting nurse or other home services: No 75 years or older and lives alone: No Alcohol intake: current Alcohol intake frequency: a few times a month Alcohol type: beer and wine Patient Tobacco Use Status: Former Tobacco user Tobacco use type: Cigar e-Cigarette/Vaping Use: Never Used service: No Current occupational status: employed 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 [employer] Current occupational exposures/hazards: No Cognitive needs: No Hearing needs: No Vision needs: Yes Review of Systems Const All systems reviewed & are unremarkable except as noted in HPI and below ENT Denies dizziness Card Denies chest pain, Denies chest pain at rest, Reports chest pain with activity (tightness), Denies rapid heart rate, Denies pedal edema, Denies edema, Denies leg edema, Denies lightheadedness, Denies palpitations, Denies dyspnea, Denies dyspnea on exertion and Denies orthopnea Resp Denies cough, Denies dyspnea and Denies dyspnea on exertion GI Denies hematochezia and Denies change in stool character Musc Denies abnormal gait, Denies limited range of motion, Denies muscle cramps, Denies muscle weakness, Denies numbness, Denies radiating pain into limb, Denies stiffness and Denies tingling Neuro Denies abnormal gait, Denies dizziness, Denies numbness and Denies tingling Endo Denies palpitations Physical Exam Vital Signs: Last Vital Signs Pulse 55 10/03/24 14:18 BP 118/62 10/03/24 14:18 BMI result Body Mass Index 24.4 Const General: cooperative, healthy appearing, comfortable and no acute distress Orientation/consciousness: patient oriented x3 Neck Neck: Yes normal visual inspection and Yes no JVD Resp Effort & Inspection: normal respiratory effort Auscultation: clear to auscultation bilaterally, no crackles, no rales, no rhonchi and no wheezes Cardio Jugular venous distension: no JVD Rate: regular rate Rhythm: regular rhythm Heart sounds: S1 normal heart sound present, S2 normal heart sound present, no murmurs and no rubs Neuro General: patient oriented x3 Extrem General: Yes normal to inspection, No no pedal edema and No calf tenderness Psych Appearance: grossly normal Mental Status: mental status grossly normal Speech and movement: Normal speech and movement present Assessment & Plan Assessment & Plan (1) Chest pain, exertional: Code(s): R07.9 - Chest pain, unspecified Category: Medical Plan: Reports of exertional chest discomfort which sounds very typical for stable angina. He has a known history of a right coronary artery stent and occluded PDA with collaterals. EKG done last visit showed sinus bradycardia, right bundle branch block, left anterior fascicular block, rate 59. He did undergo a repeat cardiac catheterization on 09/19/2024 which showed mid LAD 50% stenosis, FFR 0.84, left circumflex, 1st OM proximal 75% stenosis, FFR 0.87, RCA stent in the mid RCA is patent, CAD good collaterals to the right PDA. Test results reviewed with him in detail. His right radial catheterization site is healing well. On last visit he was started on isosorbide. He reports some improvement in his symptom with it however he is noticing itchy and watery eyes. Will have him stop isosorbide and start on amlodipine 2.5 mg daily has a 2nd antianginal. Continue metoprolol, aspirin and moderate dose atorvastatin. Labs done 08/26/2024 showed LDL 60. Blood pressure today 118/62. Will start in cardiac rehab for stable angina. Signs and symptoms of angina reviewed with him. Cheryl gency care if ever needed for symptoms. He is agreeable to this plan. Cardiology follow-up in 3 months, sooner if needed. (2) CAD (coronary artery disease): Code(s): I25.10 - Atherosclerotic heart disease of [place] coronary artery without angina pectoris Category: Medical Qualifiers: Coronary Disease-Associated Artery/Lesion type: unspecified vessel or lesion type [place] vs. transplanted heart: [place] heart Associated angina: unspecified whether angina present Qualified Code(s): I25.10 - Atherosclerotic heart disease of [place] coronary artery without angina pectoris Plan: As above (3) Stable angina: Code(s): I20.89 - Other forms of angina pectoris Category: Medical Plan: As above (4) Stented coronary artery: Comment: Drug-eluting stent to mid RCA in 2016 for myocardial infarction/crescendo angina. Chronic total occlusion of the PDA with good collaterals. Dhcp-ga-kxzjhupi disease in LAD and circumflex artery Code(s): Z95.5 - Presence of coronary angioplasty implant and graft Category: Surgical Plan: As above. Patent stent in the mid RCA (5) History of cardiac cath: Comment: 09/19/2024 mid LAD 50% stenosis 1st OM 75% stenosis, RCA mid patent stent, collaterals: 1st septal to the right PDA, 1st RPL to the right PDA and 1st AC marginal to the right PDA Code(s): Z98.890 - Other specified postprocedural states Category: Surgical Plan: Right radial catheterization site with easily palpable right radial pulse, right hand assessment normal (6) Hypertension: Code(s): I10 - Essential (primary) hypertension Category: Medical Qualifiers: Hypertension type: primary hypertension Qualified Code(s): I10 - Essential (primary) hypertension Plan: Well controlled at this time. Stopping isosorbide and changing it to amlodipine. Continue metoprolol and valsartan (7) Hyperlipidemia: Code(s): E78.5 - Hyperlipidemia, unspecified Category: Medical Plan: [place] LDL goal less than 70. LDL well controlled at 60 on recent labs. Continue atorvastatin 40 mg daily Plan Time spent on chart review, documentation, interview and assessment Orders: Orders Cardiac Rehab Today I20.89 - Other forms of angina pectoris, R07.9 - Chest pain, unspecified Medications: New amlodipine 2.5 mg PO DAILY 30 tabs 3RF Discontinued isosorbide mononitrate ER Discontinued Reason: Doctor's Order 30 mg PO DAILY 30 tabs 5RF R07.9 - Chest pain, unspecified Coding Level of Care Code Est Pt Level 4 (82710) Complex EM visit Add On G2211 Diagnoses Chest pain, exertional R07.9 Coronary artery disease involving [place] heart, unspecified vessel or lesion type, unspecified whether angina present I25.10 Coronary Disease-Associated Artery/Lesion type: unspecified vessel or lesion type [place] vs. transplanted heart: [place] heart Associated angina: unspecified whether angina present Stable angina I20.89 Stented coronary artery Z95.5 History of cardiac cath Z98.890 Primary hypertension I10 Hypertension type: primary hypertension Hyperlipidemia E78.5 Time Spent (min) 36
== END 2024-10-03 14:57 | disposition home or self-care (01) ==
PROVIDERS: PCP Family Medicine; Visit Provider Nurse Practitioner Family
DX: I11.9 Hypertensive heart disease without heart failure (principal); I25.118 Atherosclerotic heart disease of native coronary artery with other forms of angina pectoris; Z95.5 Presence of coronary angioplasty implant and graft; Z98.890 Other specified postprocedural states; R07.9 Chest pain, unspecified; E78.5 Hyperlipidemia, unspecified
CPT/HCPCS: 99214; G2211

== ENCOUNTER → 2024-10-03 13:55 | Outpatient (BNVA) | payer MEDICARE, OTHER, SELFPAY | PROVIDERS: PCP Family Medicine; Visit Provider Nurse Practitioner Family | DX: I10 Essential (primary) hypertension (principal); I25.118 Atherosclerotic heart disease of native coronary artery with other forms of angina pectoris; E78.5 Hyperlipidemia, unspecified; R07.9 Chest pain, unspecified; Z95.5 Presence of coronary angioplasty implant and graft; Z87.891 Personal history of nicotine dependence; Z98.890 Other specified postprocedural states | CPT/HCPCS: 99212 ==

== ENCOUNTER 2024-10-04 13:36 | Outpatient (AMB) | payer MEDICARE, OTHER, SELFPAY ==
--- NOTE | 2024-10-04 13:53 | MHC.PC.OV ---
Vital Signs 10/04/24 13:55 Height 5 ft 10 in Weight 174 lb BMI 25.0 BP 126/60 Blood Pressure Location Lt brachial Position Sitting Respiration 16 Pulse 72 Pulse Source Palpation Temp 97.7 F Temp Source Oral Intake Visit Reasons: f/u on HTN Intake Note: f/u for HTN Allergies cat dander Allergy (Mild, Verified 10/04/24 13:54) bumps on skin, eyes and nose closes Latex, Natural Rubber Allergy (Mild, Verified 10/04/24 13:54) itchy skin No Known Drug Allergies Allergy (Unknown, Verified 10/04/24 13:54) Unknown pollen Allergy (Mild, Uncoded 10/03/24 14:20) Unknown isosorbide Adverse Reaction (Uncoded 10/03/24 16:08) itchy watery eyes Tobacco use date assessed: 08/29/24 Dental Screening Dental Screen Date: 08/29/24 HPI f/u on HTN HPI Details 74 y/o male presents to f/u hypertension, exertional chest pain. Also f/u elevated fasting blood sugar, chronic conditions. Blood pressure today 126/60, 72p. Had been put off isosorbide and is now on amlodipine. He is on amlodipine 2.5mg, metoprolol 50mg, valsartan 40mg daily. Had a cardiac cath on 09/19/24. A1c today 5.2%. [facility] Medical History (Updated 10/03/24 @ 16:03 by Penny Govea, MERCHANT PATROLLER-C) Hypertension CAD (coronary artery disease) History of [place] (myocardial infarction) No pertinent past medical history Surgical History (Updated 10/03/24 @ 16:58 by Penny Govea MERCHANT PATROLLER-C) History of cardiac cath Stented coronary artery H/O removal of cyst H/O shoulder surgery Hx of hernia repair Status post surgical removal of neoplasm of skin Hx of appendectomy Hx of cataract surgery Family History Father Heart problem Mother Heart problem Sister Mini stroke Social History Household Members: Family Both parents involved: No Caregiver staying overnight: No Housing: House Are you a primary personal caregiver to a significant other at home: No Do you presently have visiting nurse or other home services: No 75 years or older and lives alone: No Alcohol intake: current Alcohol intake frequency: a few times a month Alcohol type: beer and wine Patient Tobacco Use Status: Former Tobacco user Tobacco use type: Cigar e-Cigarette/Vaping Use: Never Used service: No Current occupational status: employed 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 [employer] Current occupational exposures/hazards: No Cognitive needs: No Hearing needs: No Vision needs: Yes Questionnaire Thrive Questionnaire Date Thrive assessed: 08/29/24 I am a: Patient What is your living situation today?: I have a steady place to live Within the past 12 months, did the food you bought not last and you didn't have the money to get more?: Never true Within the past 12 months, did you worry whether your food would run out before you got money to buy more?: Never true Do you have trouble paying for medicines?: No Do you have trouble getting transportation to medical appointments?: No Do you have trouble paying your heating and electricity bill?: No Do you have trouble taking care of your child, family member or friend?: No Do you have trouble with day-to-day activities such as bathing, preparing meals, shopping, managing finances, etc.?: No Are you currently unemployed and looking for a job?: No Are you interested in more education?: No Please select the resources that you would like help with: None Currently or been in a relationship where the following occur: No concerns reported THRIVE Score: 0 BUDDY-7 AMB Questionnaire BUDDY-7 Date BUDDY - 7 assessed: 08/29/24 Source: Developed by Drs. Henry Tony, Angie Funes, Lito Jean-Baptiste and colleagues, with an educational kinza from [employer]. Review of Systems Const Denies chills, Denies fatigue, Denies fever(s), Denies headache(s) and Denies weakness ENT Denies dizziness and Denies headache(s) Card Denies chest pain, Denies lightheadedness, Denies dyspnea and Denies other (Palpitations) Resp Denies cough, Denies dyspnea, Denies wheezing and Denies other ( shortness of breath) Musc Denies numbness and Denies tingling Neuro Denies dizziness, Denies headache(s), Denies numbness, Denies tingling, Denies paresthesias and Denies weakness Psych Denies anxiety and Denies depression Endo Denies fatigue Aller/Immun Denies wheezing Physical exam (Primary Care) Vital Signs: Last Vital Signs Temp 97.7 F 10/04/24 13:55 Pulse 72 10/04/24 13:55 Resp 16 10/04/24 13:55 BP 126/60 10/04/24 13:55 BMI result Body Mass Index 25.0 Tobacco/Smoking Status: Tobacco use Status Tobacco use date assessed 08/29/24 10/04/24 13:59 Patient Tobacco Use Status Former Tobacco user 10/04/24 13:59 Tobacco use type Cigar 10/04/24 13:59 e-Cigarette/Vaping Use Never Used 10/04/24 13:59 Thrive Assessment: Date of Thrive Assessment Date Thrive assessed 08/29/24 10/04/24 13:59 Currently or been in a relationship where the following occur: No concerns reported Const General: no acute distress and well developed Nutritional Appearance: well nourished Orientation/consciousness: patient oriented x3 HENMT Head: Yes normocephalic and Yes atraumatic Eyes General: appearance normal, both eyes and all related structures Pupils: Equal, round and reactive pupils present EOM: EOMs intact bilaterally Resp Effort & Inspection: normal respiratory effort Auscultation: clear to auscultation bilaterally Cardio Rate: regular rate Rhythm: regular rhythm Heart sounds: S1 normal heart sound present, S2 normal heart sound present, no gallops, no murmurs and no rubs Neuro General: patient oriented x3 and gait normal Cranial nerves: Yes Equal, round and reactive pupils present Psych Affect: normal affect Coding Level of Care Code Est Pt Level 4 (45669) Diagnoses Primary hypertension I10 Hypertension type: primary hypertension Coronary artery disease involving [place] heart, unspecified vessel or lesion type, unspecified whether angina present I25.10 Associated angina: unspecified whether angina present Coronary Disease-Associated Artery/Lesion type: unspecified vessel or lesion type [place] vs. transplanted heart: [place] heart Chest pain, exertional R07.9 History of cardiac cath Z98.890 Elevated fasting glucose R73.01 Assessment & Plan Assessment & Plan (1) Hypertension: Code(s): I10 - Essential (primary) hypertension Category: Medical Qualifiers: Hypertension type: primary hypertension Qualified Code(s): I10 - Essential (primary) hypertension Plan: Blood?pressure?is?controlled.??Goal?is?less?than?130/80 Continue?current?medications (2) CAD (coronary artery disease): Code(s): I25.10 - Atherosclerotic heart disease of [place] coronary artery without angina pectoris Category: Medical Qualifiers: Associated angina: unspecified whether angina present Coronary Disease-Associated Artery/Lesion type: unspecified vessel or lesion type [place] vs. transplanted heart: [place] heart Qualified Code(s): I25.10 - Atherosclerotic heart disease of [place] coronary artery without angina pectoris Plan: Patient?had?recent?repeat?cardiac?catheterization There?was?no?indication?for?any?additional?stenting He?had?been?given?isosorbide?but?this?was?causing?adverse?reactions?and?this?was?changed?to?amlodipine.??As?above,?blood?pressure?is?controlled. Will?start?cardiac?rehab Advised?him?to?continue?taking?it?easy?until?has?had?cardiac?green?have?where?they?monitor?as?he?is?exerting?himself. (3) Chest pain, exertional: Code(s): R07.9 - Chest pain, unspecified Category: Medical Plan: As above (4) History of cardiac cath: Comment: 09/19/2024 mid LAD 50% stenosis 1st OM 75% stenosis, RCA mid patent stent, collaterals: 1st septal to the right PDA, 1st RPL to the right PDA and 1st AC marginal to the right PDA Code(s): Z98.890 - Other specified postprocedural states Category: Surgical Plan: As?above (5) Elevated fasting glucose: Code(s): R73.01 - Impaired fasting glucose Category: Medical Plan: A1c?5.2%?is?in?normal?range Continue?to?work?at?a?diet?lower?in?sugars?and?starches
[2024-10-04 13:55] VITALS: BP 126/60; PULSE 72; RESP 16; TEMP 36.5; BMI 25.0
== END 2024-10-04 14:43 | disposition home or self-care (01) ==
PROVIDERS: PCP Family Medicine; Visit Provider Family Medicine
DX: I10 Essential (primary) hypertension (principal); I25.10 Atherosclerotic heart disease of native coronary artery without angina pectoris; R07.9 Chest pain, unspecified; Z98.890 Other specified postprocedural states; R73.01 Impaired fasting glucose

== ENCOUNTER → 2024-10-04 13:36 | Outpatient (BNVA) | payer MEDICARE, OTHER, SELFPAY | PROVIDERS: PCP Family Medicine; Visit Provider Family Medicine | DX: I10 Essential (primary) hypertension (principal); I25.10 Atherosclerotic heart disease of native coronary artery without angina pectoris; R07.9 Chest pain, unspecified; R73.01 Impaired fasting glucose; Z98.890 Other specified postprocedural states | CPT/HCPCS: 99212 ==

== ENCOUNTER 2024-10-10 11:33 | Outpatient (AMB) | payer MEDICARE, OTHER, SELFPAY ==
--- NOTE | 2024-10-10 11:41 | A.OFFVIS_ITS ---
Intake Visit Reasons: 6m/PSA/PVR(set) Intake Note: Patient presents today for follow up on: psa lab results, nocturia, and urgency PSA: 0.98 Urology Medication: none Antibiotic Allergy:none Blood Thinner:aspirin Todays PVR: 66ml's Preschool Disability Teacher Required: No Allergies cat dander Allergy (Mild, Verified 10/10/24 12:19) bumps on skin, eyes and nose closes Latex, Natural Rubber Allergy (Mild, Verified 10/10/24 12:19) itchy skin No Known Drug Allergies Allergy (Unknown, Verified 10/10/24 12:19) Unknown pollen Allergy (Mild, Uncoded 10/10/24 12:19) Unknown isosorbide Adverse Reaction (Uncoded 10/10/24 12:19) itchy watery eyes Medication List - Last Reconciled 10/10/24 by RAMONA Tinsley- alfuzosin ER 10 mg PO BEDTIME 30 days amlodipine 2.5 mg PO DAILY aspirin (Adult Aspirin Regimen) 81 mg PO DAILY atorvastatin 40 mg PO BEDTIME garlic 1,000 mg PO DAILY magnesium 200 mg PO DAILY mecobalamin (vitamin B12) 1,000 mcg sublingual DAILY metoprolol succinate ER 50 mg PO DAILY 90 days omega 9-gli-sbj-fish oil 1,200 (144-216) mg (Fish Oil) caps PO pantoprazole 40 mg PO DAILY thiamine HCl (vitamin B1) 100 mg PO DAILY valsartan 40 mg PO BEDTIME vitamin K2 100 mcg PO DAILY HPI Comments Details: Abdirahman is a very pleasant 74-year-old male patient of Dr. Colindres. He has a past medical history of coronary artery disease, CA in 2016 with a stent placed, hypertension, peripheral vascular disease, esophageal stricture, and hepatitis. He presents to the office today for follow-up of his ongoing lower urinary tract symptoms and complex right renal cyst. In discussion with the patient today reports to be doing and feeling well. He reports recently following up with cardiology for his ongoing chest pain he has been experiencing and has undergone further workup. He discusses awaiting call/referral from cardiac rehab. He discusses having stopped Flomax as he felt this was causing issues with his libido and fatigue. He does continue to report nocturia, urinary hesitancy, and weak urinary stream. He otherwise denies urinary urgency, urinary frequency, incontinence, hematuria, dysuria, foul smelling urine, flank pain, fever, and or chills. In office urinalysis results reviewed with the patie nt today. PVR 66ml's. He otherwise denies any other issues or concerns at this time. Previous workup has included a CT 04/01 noting right kidney revealed exophytic simple cyst in the upper pole, located medially and measured 3.5 x 3.3 cm. There is lower pole exophytic cyst measured 1.7 x 1.4 cm. There is linear vascular calcification seen but no nephrolithiasis. There are small parapelvic cysts. There is mild perinephric stranding. Left kidney is unremarkable. There is mild perinephric stranding bilaterally. The bladder is unremarkable. PSAs are as follows: 04/30 1.0, 09/01 1.0 He otherwise denies any other issues or concerns at this time. [facility] Medical History Hypertension CAD (coronary artery disease) History of CA (myocardial infarction) No pertinent past medical history Surgical History History of cardiac cath Stented coronary artery H/O removal of cyst H/O shoulder surgery Hx of hernia repair Status post surgical removal of neoplasm of skin Hx of appendectomy Hx of cataract surgery Family History Father Heart problem Mother Heart problem Sister Mini stroke Social History Household Members: Family Both parents involved: No Caregiver staying overnight: No Housing: House Are you a primary child day care provider to a significant other at home: No Do you presently have visiting nurse or other home services: No 75 years or older and lives alone: No Alcohol intake: current Alcohol intake frequency: a few times a month Alcohol type: beer and wine Patient Tobacco Use Status: Former Tobacco user Tobacco use type: Cigar e-Cigarette/Vaping Use: Never Used service: No Current occupational status: employed 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 [employer] Current occupational exposures/hazards: No Cognitive needs: No Hearing needs: No Vision needs: Yes Review of Systems Const Reports no additional complaints Eyes Reports no additional complaints ENT Reports no additional complaints Card Reports as per HPI Resp Reports no additional complaints GI Reports as per HPI Reports as per HPI Musc Reports no additional complaints Neuro Reports no additional complaints Psych Reports no additional complaints Endo Reports no additional complaints Jean/Lymph Reports no additional complaints Aller/Immun Reports no additional complaints Physical Exam Const General: cooperative, healthy appearing, comfortable, no acute distress, well developed, alert and awake Orientation/consciousness: patient oriented x3 Limitations: no limitations HEENT Head: Yes normal to inspection, Yes normocephalic and Yes atraumatic Ears: hearing grossly normal bilaterally Eyes General: appearance normal, both eyes and all related structures Neck Neck: Yes normal visual inspection and Yes trachea midline Chest Chest palpation & inspection: normal inspection of the chest Resp Effort & Inspection: normal respiratory effort and able to speak in complete sentences Cardio Rate: regular rate GI Inspection: Yes normal to inspection General: Yes no CVA tenderness Back/Spine/Pelvis Back: no CVA tenderness Skin General skin exam: no rashes or lesions noted Neuro General: patient oriented x3 Extrem General: Yes normal to inspection Psych Appearance: grossly normal and well kempt Mental Status: mental status grossly normal Speech and movement: Normal speech and movement present and Clear speech present Affect: normal affect Attitude: cooperative Thought process: Normal thought process present Thought content: Normal thought content present Insight: Fair insight present (Psych) Judgement: Fair judgement present (Psych) Office Procedures Post Void Residual Post Residual Void Post Void Residual (PVR): 66 [id number] Void Residual by ultrasound Results AMB Urinalysis, Automated UA Leukoctes 0 Lyndsey/uL Last Edit by Rodo Lott on 10/10/24 12:06 UA Nitrite Last Edit by Rodo Lott on 10/10/24 12:06 UA Urobilinogen 0.2 mg/dL Last Edit by [employer] Lott on 10/10/24 12:06 UA Protein 0 mg/dL Last Edit by Rodo Lott on 10/10/24 12:06 UA pH 6.0 Last Edit by Rodo Lott on 10/10/24 12:06 UA Blood 0 Mario/uL Last Edit by Rodo Lott on 10/10/24 12:06 UA Specific [place] 1.010 Last Edit by Rodo Lott on 10/10/24 12:06 UA Ketone Last Edit by Rodo Lott on 10/10/24 12:06 UA Bilirubin 0 mg/dL Last Edit by Rodo Lott on 10/10/24 12:06 UA Glucose 0 mg/dL Last Edit by Rodo Lott on 10/10/24 12:06 Results Reviewed Results Reviewed: Laboratory Last Values Urine pH (Auto) 6.0 10/10/24 12:05 Specific [place] (Auto) 1.010 10/10/24 12:05 Urine Protein (Auto) 0 mg/dL 10/10/24 12:05 Glucose (UA)(Auto) 0 mg/dL 10/10/24 12:05 Urine Blood (Auto) 0 Mario/uL 10/10/24 12:05 Urine Bilirubin (Auto) 0 mg/dL 10/10/24 12:05 Urine Urobilinogen (Auto) 0.2 mg/dL 10/10/24 12:05 Leukocyte Esterase (Auto) 0 Lyndsey/uL 10/10/24 12:05 Date of Service: 04/02/24 EXAMINATION: CT ABDOMEN AND PELVIS WITHOUT AND WITH CONTRAST FINDINGS: LIVER, GALLBLADDER, AND BILIARY TREE: The liver is normal in size, shape, and attenuation. No focal hepatic lesion or biliary ductal dilatation is present. There is 0.7 cm nonenhancing lesion in the right lobe of the liver is likely cyst. The gallbladder is unremarkable with no evidence of radiopaque gallstones, gallbladder wall thickening, or obvious pericholecystic inflammatory changes. PANCREAS: Unremarkable SPLEEN: Spleen is mildly enlarged measured 13 cm. ADRENAL GLANDS: Unremarkable KIDNEYS AND URETERS: Right kidney revealed exophytic simple cyst in the upper pole, located medially and measured 3.5 x 3.3 cm. There is lower pole exophytic cyst measured 1.7 x 1.4 cm. There is linear vascular calcification seen but no nephrolithiasis. There are small parapelvic cysts. There is mild perinephric stranding. Left kidney is unremarkable. There is mild perinephric stranding bilaterally BLADDER: Unremarkable GASTROINTESTINAL TRACT: The small and large bowel are unremarkable. The appendix is unremarkable. ABDOMINAL WALL: No significant hernia is appreciated. LYMPH NODES: Normal VASCULAR: Unremarkable PELVIC VISCERA: There is prostate hypertrophy. OSSEOUS STRUCTURES: There is compression deformity of L1 vertebral body of indeterminate age with Schmorl's hernia. There is grade 1 anterior listhesis of L5 over S1 and bilateral pars defect IMPRESSION: 1. No evidence of renal masses. 2. Right renal cysts. 3. Mild splenomegaly. 4. Prostate hypertrophy. 5. Compression deformity of L1 vertebral body of indeterminate age. 6. Grade 1 anterolisthesis of L5 over S1 and bilateral pars defect at L5-S1. Assessment & Plan Assessment & Plan (1) Renal cyst: Code(s): N28.1 - Cyst of kidney, acquired Category: Medical (2) Enlarged prostate: Code(s): N40.0 - Benign prostatic hyperplasia without lower urinary tract symptoms Category: Medical (3) Complex renal cyst: Code(s): N28.1 - Cyst of kidney, acquired Category: Medical (4) Weak urinary stream: Code(s): R39.12 - Poor urinary stream Category: Medical (5) Nocturia: Code(s): R35.1 - Nocturia Category: Medical Plan In office urinalysis results reviewed with the patient today; as noted above. PVR 66 mL. Recent PSA results reviewed with the patient today; as noted above. We discussed surveillance monitoring of complex renal cyst. Stop Flomax. Start alfuzosin as discussed and prescribed. We discussed importance of limiting fluids 2-3 hours prior to bed to decrease episodes of nocturia. We discussed bladder triggers/irritants. We discussed potential near future in office cystoscopy and or urodynamics for further assessment evaluation. Will obtain renal ultrasound. Follow-up in 1-3 months with imaging and PVR; or sooner with any issues, concerns, and or questions. Orders: Orders AMB Urinalysis Automated Today Z13.9 - Encounter for screening, unspecified AMB Post Void Residual by ultrasound Today R35.1 - Nocturia US renal BI 2 Months N28.1 - Cyst of kidney, acquired Medications: New alfuzosin ER Take before bedtime 10 mg PO BEDTIME 30 days 30 tabs 3RF N32.0 - Bladder- neck obstruction, N40.1 - Benign prostatic hyperplasia with lower urinary tract symptoms, R33.9 - Retention of urine, unspecified, R35.1 - Nocturia, R39.12 - Poor urinary stream Patient Instructions: The patient had an opportunity to ask questions regarding the treatment plan. All questions were answered. Physical exam, labs, and imaging were discussed and reviewed in detail. As well as risks, benefits, and discussion of treatment choices. No major barriers to understanding were identified. The patient expressed understanding and agreement with the above treatment plan. The patient was made aware they should contact our office by phone for worsening of their current condition, the appearance of new symptoms, or with any questions or concerns. Compliance is encouraged with any medications and follow up testing that is ordered. It is a privilege to be allowed the opportunity to participate in? your urological care.? Again, if you have any questions or concerns If you have any questions or concerns please do not hesitate to contact me. The office is [phone]. This note is constructed using voice recognition software. While every effort has been made to ensure accuracy hair spinning machine operator errors may have been included. Yours sincerely, PEDRO Tinsley Coding Level of Care Code Est Pt Level 4 (10952) Complex EM visit Add On G2211 Diagnoses Renal cyst N28.1 Enlarged prostate N40.0 Complex renal cyst N28.1 Weak urinary stream R39.12 Nocturia R35.1 CPT Codes Post Residual Void - PVR CPT Code: 92762-[id number] Void Residual by ultrasound ([id number])
== END 2024-10-10 12:25 | disposition home or self-care (01) ==
PROVIDERS: PCP Family Medicine; Visit Provider Nurse Practitioner Family
DX: N28.1 Cyst of kidney, acquired (principal); N40.0 Benign prostatic hyperplasia without lower urinary tract symptoms; R39.12 Poor urinary stream; R35.1 Nocturia; Z13.9 Encounter for screening, unspecified
CPT/HCPCS: 99214; G2211

== ENCOUNTER → 2024-10-10 11:33 | Outpatient (BNVA) | payer MEDICARE, OTHER, SELFPAY | PROVIDERS: PCP Family Medicine; Visit Provider Nurse Practitioner Family | DX: N28.1 Cyst of kidney, acquired (principal); N40.0 Benign prostatic hyperplasia without lower urinary tract symptoms; R39.12 Poor urinary stream; R35.1 Nocturia | CPT/HCPCS: 51798; 81003; 99212 ==

== ENCOUNTER 2024-10-28 14:22 | Outpatient (AMB) | payer MEDICARE, OTHER, SELFPAY ==
--- NOTE | 2024-10-28 14:30 | MHC.OFFVIS ---
Vital Signs 10/28/24 14:31 Height 5 ft 10 in Weight 173 lb BMI 24.8 BP 138/70 Blood Pressure Location Rt brachial Position Sitting Pulse 64 Pulse Source Pulse Oximeter Pulse Oximetry (%) 98 Oxygen Delivery Method Room Air Intake Visit Reasons: X-XK-Eivnfut's disease, unspecified ear Intake Note: Patient presents for evaluation of meniere's didsease Allergies cat dander Allergy (Mild, Verified 10/28/24 14:35) bumps on skin, eyes and nose closes Latex, Natural Rubber Allergy (Mild, Verified 10/28/24 14:35) itchy skin No Known Drug Allergies Allergy (Unknown, Verified 10/28/24 14:35) Unknown pollen Allergy (Mild, Uncoded 10/28/24 14:35) Unknown isosorbide Adverse Reaction (Uncoded 10/28/24 14:35) itchy watery eyes Medication List - Last Reconciled 10/28/24 by Mahogany Renteria MD alfuzosin ER 10 mg PO BEDTIME 30 days amlodipine 2.5 mg PO DAILY aspirin (Adult Aspirin Regimen) 81 mg PO DAILY atorvastatin 40 mg PO BEDTIME garlic 1,000 mg PO DAILY magnesium 200 mg PO DAILY mecobalamin (vitamin B12) 1,000 mcg sublingual DAILY metoprolol succinate ER 50 mg PO DAILY 90 days omega 0-nws-luh-fish oil 1,200 (144-216) mg (Fish Oil) caps PO pantoprazole 40 mg PO DAILY thiamine HCl (vitamin B1) 100 mg PO DAILY valsartan 40 mg PO BEDTIME vitamin K2 100 mcg PO DAILY HPI Comments Details: 74y/o male comes for evaluation of dizziness. He reports dizziness for 4-5 years atleast.He has a mild dizziness all the time but when he looks up or lifts his head up his dizziness worsens.He also has episodes or worsening when he drives. He describes the dizziness as not felling right in space.Last year he had a severe episode and went to [place] [facility].His BP was high and he also had headaches. MRI brain was nonfocal . He denies nausea or vomiting. During his severe episode he also had headaches and nausea. He has chronic tinnitus and hearing issues. He reports h/o multiple head injuries - his last was years ago when he was cutting a tree , snapped and hit him in his face. He was seen by ENT - did not think it was Menieres- but recommended Vestibular. [facility] Medical History (Updated 10/28/24 @ 15:06 by Mahogany Renteria MD) Hearing loss Vertigo Hypertension CAD (coronary artery disease) History of VA (myocardial infarction) No pertinent past medical history Surgical History History of cardiac cath Stented coronary artery H/O removal of cyst H/O shoulder surgery Hx of hernia repair Status post surgical removal of neoplasm of skin Hx of appendectomy Hx of cataract surgery Family History Father Heart problem Mother Heart problem Sister Mini stroke Social History Household Members: Family Both parents involved: No Caregiver staying overnight: No Housing: House Are you a primary pediatric critical care nurse to a significant other at home: No Do you presently have visiting nurse or other home services: No 75 years or older and lives alone: No Alcohol intake: current Alcohol intake frequency: a few times a month Alcohol type: beer and wine Patient Tobacco Use Status: Former Tobacco user Tobacco use type: Cigar e-Cigarette/Vaping Use: Never Used service: No Current occupational status: employed 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 [employer] Current occupational exposures/hazards: No Cognitive needs: No Hearing needs: No Vision needs: Yes Physical Exam Vital Signs: Last Vital Signs Pulse 64 10/28/24 14:31 BP 138/70 10/28/24 14:31 Pulse Ox 98 10/28/24 14:31 Oxygen Delivery Method Room Air 10/28/24 14:31 BMI result Body Mass Index 24.8 Const Orientation/consciousness: patient oriented x3 Neuro Other: Right Pupil irregular due to injury form childhood left pupil - 3 mm Mild stoop General: patient oriented x3, tone normal, moves all extremities, no focal motor deficits and CN's II-XI intact bilaterally Cranial nerves: Yes Facial sensation intact/muscles of mastication intact, Yes Bilaterally intact EOM present, Yes Nystagmus not present, Yes Normal facial strength present and Yes Midline tongue present Cognition (Neuro): normal cognition Gait exam (Neuro): Normal gait present Motor exam (neuro): 5/5 motor strength present throughout and Normal motor muscle tone present throughout Deep tendon reflexes (DTR's): Right triceps reflex intensity grade: 1+, Left triceps reflex intensity grade: 1+, Rt Biceps (C5, C6): 1+, Left biceps reflex intensity grade: 1+, Right brachioradialis reflex intensity grade: 1+, Left brachioradialis reflex intensity grade: 1+, Right patellar reflex intensity grade: 1+ and Left patellar reflex intensity grade: 1+ Coordination: [id number] test normal Assessment & Plan Assessment & Plan (1) Vertigo: Comment: ? BPV ? Meniers Code(s): R42 - Dizziness and giddiness Category: Medical (2) Tinnitus: Code(s): H93.19 - Tinnitus, unspecified ear Category: Medical Qualifiers: Laterality: unspecified laterality Qualified Code(s): H93.19 - Tinnitus, unspecified ear Plan Reviewed MRI brain - nonfocal Suggested vestibular rehab will schedule for audiology eval Orders: Referrals Audiology Referral H91.90 - Unspecified hearing loss, unspecified ear Coding Level of Care Code New Pt Level 4 (76061) Diagnoses Vertigo R42 Tinnitus, unspecified laterality H93.19 Laterality: unspecified laterality
[2024-10-28 14:31] VITALS: BP 138/70; PULSE 64; O2SAT 98; BMI 24.8
== END 2024-10-28 15:12 | disposition home or self-care (01) ==
PROVIDERS: PCP Family Medicine; Visit Provider Psychiatry & Neurology Neurology
DX: R42 Dizziness and giddiness (principal); H93.19 Tinnitus, unspecified ear
CPT/HCPCS: 99204

== ENCOUNTER → 2024-10-28 14:22 | Outpatient (BNVA) | payer MEDICARE, OTHER, SELFPAY | PROVIDERS: PCP Family Medicine; Visit Provider Psychiatry & Neurology Neurology | DX: H93.19 Tinnitus, unspecified ear (principal); R42 Dizziness and giddiness | CPT/HCPCS: 99202 ==

== ENCOUNTER 2024-12-09 13:20 | Outpatient (REF) | payer MEDICARE, OTHER, SELFPAY ==
--- NOTE | ~2024-12-09 | US_ITS ---
EXAMINATION: US RETROPERITONEAL LIMITED (RENAL ONLY) CLINICAL INFORMATION: Cyst of kidney.. COMPARISON: CT abdomen and pelvis without and with IV contrast 04/02/2024. TECHNIQUE: Routine ultrasound retroperitoneum with attention the kidneys was performed. FINDINGS: RIGHT KIDNEY: 11.7 x 5.9 x 5.9 cm (SAG x AP x TRV). The kidney is normal in size, contour, and echogenicity. Renal cortical thickness is normal. There are multiple anechoic cysts. The largest mid pole cyst medially measures 3.3 x 3 0.5 to 3.[address] it measured 2.5 x 3.3 cm. There is a second small anechoic cyst in lower pole measuring 1.1 x 1.2 x 1.6 cm. There is an echogenic stone lower pole without shadowing measuring 0.2 x 0.1 x 0.2 cm. No hydronephrosis. LEFT KIDNEY: 12.1 x 5.3 x 4.4 cm (SAG x AP x TRV). The kidney is normal in size, contour, and echogenicity. Renal cortical thickness is normal. There are multiple anechoic cysts. The largest parapelvic mid pole cyst measures 0.7 x 1.0 x 0.7 cm. These were noted on the previous CT abdomen exam. 2 echogenic cortical calcifications in lower pole. No hydronephrosis. The bladder was not imaged. US/US renal BI IMPRESSION: Bilateral renal cortical calcifications.. There is a nonobstructive echogenic stone lower pole right kidney. Bilateral renal cysts which are stable compared to previous CT abdomen exam 04/12/2024. There is no hydronephrosis. Electronically signed by: Thien Yanes MD 12/10/2024 07:31 AM EST
--- OUTSIDE RECORDS SUMMARY | 2024-12-09 15:38 | XMS_ITS | Clinical Summary ---
Author Organization [facility] ity Address [address] [place] [address] Care Team Providers Care Chicken Vaccinator Name Role Phone Miguel Angel Garcia MD Primary Care Provider [phone] Allergies Active Allergy Reactions Criticality Noted Date Comments Cat Dander 02/16/2021 Latex 02/16/2021 Medications amLODIPine (NORVASC) 5 mg tablet Take 1 tablet (5 mg total) by mouth 1 (one) time each day. Active aspirin 81 mg chewable tablet Chew 1 tablet (81 mg total) 1 (one) time each day. Active atorvastatin (LIPITOR) 40 mg tablet Take 1 tablet (40 mg total) by mouth 1 (one) time each day. 11/16/2020 Active metoprolol succinate (TOPROL-XL) 100 mg 24 hr tablet Take 1 tablet (100 mg total) by mouth 1 (one) time each day. 01/07/2021 Active pantoprazole (PROTONIX) 40 mg EC tablet 11/10/2020 Active tamsulosin (FLOMAX) 0.4 mg 24 hr capsule Take 1 Capsule by mouth daily. Take 30 mins after same meal every day. Active valsartan (DIOVAN) 80 mg tablet Take 1 tablet (80 mg total) by mouth 1 (one) time each day. 02/01/2021 Active Active Problems Problem Noted Date Diagnosed Date Chronic pain of left inguinal region 02/16/2021 Dysuria 02/16/2021 Nocturia more than twice per night 02/16/2021 Social History Tobacco Use Types Packs/Day Years Used Date Smoking Tobacco: Never Smokeless Tobacco: Never Alcohol Use Standard Drinks/Week Comments Yes 1 (1 standard drink = 0.6 oz pur e alcohol) Sex and Gender Information Value Date Recorded Sex Assigned at Not on file Legal Sex Male 7:54 AM EST Gender Identity Not on file Sexual Orientation Not on file Obstetrics History Last Filed Vital Signs Vital Sign Reading Time Taken Comments Blood Pressure 100/60 04/18/2024 3:24 PM EDT Pulse 72 04/18/2024 3:24 PM EDT Temperature - - Respiratory Rate - - Oxygen Saturation - - Inhaled Oxygen Concentration - - Weight 76.2 kg (168 lb) 04/18/2024 3:24 PM EDT Height 177.8 cm (5' 10 ) 04/18/2024 3:24 PM EDT Body Mass Index 24.11 04/18/2024 3:24 PM EDT Plan of Treatment Upcoming Encounters Date Type Department Care Team (Late st Contact Info) Description 04/23/2025 1:00 PM EDT Office Visit Vascular Surgery - [place] [address] [place] [id number] Nereida Charles MD [address] [place] [address] Health Maintenance Due Date Last Done Comments DTaP,Tdap,and Td Vaccines (1 - Tdap) 1971 Pneumococcal Vaccine: 50+ Ye ars (1 of 1 - PCV) 2002 Zoster Vaccines (1 of 2) 2002 Abdominal Aortic Aneurysm (A AA) Screen 09/18/2022 Cholesterol Screening (Lipid Panel) 09/18/2022 Colorectal Cancer Screening: Colonoscopy 09/18/2022 Depression Screening 09/18/2022 Falls Risk Assessment 09/18/2022 Hepatitis C Screening 09/18/2022 Social Influencers of Health Screening 09/18/2022 COVID-19 Vaccine (1 - 2023-2 5 season) 2024 Influenza Vaccine (#1) 2024 RSV Immunization Patients 60 + Years Old (1 - 1-dose 75+ series) 2027 HIB Vaccines Aged Out No longer eligi ble based on patient's age to complete this topic HPV Vaccines Aged Out No longer eligi ble based on patient's age to complete this topic Hepatitis A Vaccines Aged Out No long er eligible based on patient's age to complete this topic Hepatitis B Vaccines Aged Out No long er eligible based on patient's age to complete this topic IPV Vaccines Aged Out No longer eligi ble based on patient's age to complete this topic MMR Vaccines Aged Out No longer eligi ble based on patient's age to complete this topic Meningococcal ACWY Vaccine Aged Out N o longer eligible based on patient's age to complete this topic Meningococcal B Vacine Aged Out No lo nger eligible based on patient's age to complete this topic RSV Immunization Patients Un enrique 20 months Aged Out No longer eligible b ased on patient's age to complete this topic Varicella Vaccines Aged Out No longer eligible based on patient's age to complete this topic Care Teams Chicken Vaccinator Relationship Specialty Start Date End Date Miguel Angel Garcia MD [address] PCP - General Internal Medicine 01/27/21
--- OUTSIDE RECORDS SUMMARY | 2024-12-09 15:39 | XMS_ITS | Clinical Summary ---
Author Organization [facility] Address [address] [place] [address] Care Team Providers Care Oil Well Logger Name Role Phone Hector Colindres MD Primary Care Provider [phone] Allergies Active Allergy Reactions Criticality Noted Date Comments Latex Unknown/Patient and Family Unable to Define Medium 10/15/2024 Medications Medication Sig Dispensed Refills Start Date End Date Status atorvastatin (LIPITOR) 80 MG tablet Take 80 mg by mouth. 08/18/2024 Active valsartan (DIOVAN) 40 MG tablet Take 40 mg by mouth nightly. 09/15/2024 Active metoPROLOL SUCCINATE (TOPROL-XL) 50 MG 24 hr tablet Take 50 mg by mouth. 09/20/2024 Active Encounters Date Type Department Care Team Description 10/15/2024 2:30 PM EST Office Visit [facility] [address] [address] Nagi Georges MD Dizziness (Primary Dx); BPPV (benign paroxysmal positional vertigo), left from Last 3 Months Social History Tobacco Use Types Packs/Day Years Used Date Smoking Tobacco: Former Cigarettes Tobacco Cessation:Counseling Given: Not Answered Sex and Gender Information Value Date Recorded Sex Assigned at Not on file Gender Identity Not on file Sexual Orientation Not on file Last Filed Vital Signs Vital Sign Reading Time Taken Comments Blood Pressure - - Pulse - - Temperature - - Respiratory Rate - - Oxygen Saturation - - Inhaled Oxygen Concentration - - Weight 74.8 kg (165 lb) 10/15/2024 2:29 PM EST Height 177.8 cm (5' 10 ) 10/15/2024 2:29 PM EST Body Mass Index 23.68 10/15/2024 2:29 PM EST Plan of Treatment Health Maintenance Due Date Last Done Comments Hepatitis C Virus Screening 1950 DTaP/Tdap/Td Vaccines (1 - Tdap) 1971 Mammogram 1992 Colonoscopy 1997 Pneumococcal Vaccines 50+ (1 of 1 - PCV) 2002 Zoster (Shingles) Vaccine (1 of 2) 2002 DXA Bone Density (Females,Ag es 65 and older) 2017 Influenza Vaccine 05/09/2024 COVID-19 Vaccine (1 - 2023-2 5 season) 2024 RSV Vaccine 60 years and old er and Patients (1 - 1-dose 75+ series) 2027 Hepatitis B Vaccines Aged Out No long er eligible based on patient's age to complete this topic Care Teams Oil Well Logger Relationship Specialty Start Date End Date Hector Colindres MD [address] [place] [address] [place] [address] PCP - General Family Medicine 10/15/24
== END 2024-12-09 13:21 | disposition home or self-care (01) ==
LOC: HO.US 13:20
PROVIDERS: PCP Family Medicine; Visit Provider Nurse Practitioner Family
DX: N28.1 Cyst of kidney, acquired (principal)
CPT/HCPCS: 76775

== ENCOUNTER → 2024-12-09 13:21 | Outpatient (BNV) | payer MEDICARE, OTHER, SELFPAY | PROVIDERS: PCP Family Medicine; Visit Provider Radiology Diagnostic Radiology | DX: N28.1 Cyst of kidney, acquired (principal) | CPT/HCPCS: 76775 ==

== ENCOUNTER 2024-12-31 13:59 | Outpatient (REF) | payer MEDICARE, OTHER, SELFPAY ==
--- OUTSIDE RECORDS SUMMARY | 2024-12-31 17:26 | XMS_ITS | Clinical Summary ---
Author Organization [facility] ity Address [address] [place] [address] Care Team Providers Care Care Taker Name Role Phone Miguel Angel Garcia MD Primary Care Provider +1- [phone] Allergies Active Allergy Reactions Criticality Noted Date [...] PM EDT Office Visit [facility] [place] [address] [place] [id number] Nereida Charles MD [address] [place] [address] Health Maintenance Due Date Last Done Comments [...] age to complete this topic Care Teams Care Taker Relationship Specialty Start Date End Date Miguel Angel Garcia MD [address] PCP - General Internal Medicine 01/27/21
--- OUTSIDE RECORDS SUMMARY | 2024-12-31 17:26 | XMS_ITS | Clinical Summary ---
Author Organization [facility] Address [address] [place] [address] Care Team Providers Care Stay Cutter Name Role Phone Hector Colindres MD Primary Care Provider +1- [phone] Allergies Active Allergy Reactions Criticality Noted Date [...] Description 10/15/2024 2:30 PM EST Office Visit [facility] [address] [address] Nagi Georges MD Dizziness (Primary Dx); BPPV [...] age to complete this topic Care Teams Stay Cutter Relationship Specialty Start Date End Date Hector Colindres MD [address] [place] [address] [place] [address] PCP - General Family Medicine 10/15/24
== END 2024-12-31 14:00 | disposition home or self-care (01) ==
LOC: HO.SH 13:59
PROVIDERS: Visit Provider Psychiatry & Neurology Neurology
DX: Z01.118 Encounter for examination of ears and hearing with other abnormal findings (principal); H91.90 Unspecified hearing loss, unspecified ear
CPT/HCPCS: 92557; 92567

== ENCOUNTER 2025-01-03 13:39 | Outpatient (AMB) | payer MEDICARE, OTHER, SELFPAY ==
--- NOTE | 2025-01-03 13:45 | A.OFFPC_ITS ---
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 Pt had recent repeat cardiac catherization. Has been going to cardiac rehab. He notes after his cardiac rehab he had started feeling unwell. He notes he had been coughing up some blood the next day and had started to feel worse throughout the day. He notes pt's son had a fullike illness, he had fallen and had went to the emergency department 11/30/24. Per note, he had tested positive for influenza. CT head/neck unremarkable. Chest x-ray showed some atelactasis without other focal findings. He reports lightheadedness and feels his vision has been getting blurry. Pt states this feels different than vertigo. He notes lightheadness did not feel like sensations of tumbling/spinning. Blood pressure today 120/60, 61p. HPI Comments History of Present Illness Details Documentation assistance for Hector Colindres MD, was provided by Hunter Kenny,? Interventionist on 01/03/2025 at 2:29 PM EST. I, Dr. Colindres, have read, observed, and verified documentation. [facility] Medical History (Updated 01/03/25 @ 14:26 by Hunter Kenny) Hearing loss Vertigo Hypertension CAD (coronary artery disease) History of [place] (myocardial infarction) No pertinent past medical history Surgical History History of cardiac cath Stented coronary artery H/O removal of cyst H/O shoulder surgery Hx of hernia repair Status post surgical removal of neoplasm of skin Hx of appendectomy Hx of cataract surgery Family History Father Heart problem Mother Heart problem Sister Mini stroke Social History Household Members: Family Both parents involved: No Caregiver staying overnight: No Housing: House Are you a primary health care specialist to a significant other at home: No Do you presently have visiting nurse or other home services: No 75 years or older and lives alone: No Alcohol intake: current Alcohol intake frequency: a few times a month Alcohol type: beer and wine Patient Tobacco Use Status: Former Tobacco user Tobacco use type: Cigar e-Cigarette/Vaping Use: Never Used service: No Current occupational status: employed 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 1. Little interest or pleasure in doing things: not at all 2. Feeling down, depressed, or hopeless: not at all 3. Trouble falling or staying asleep, or sleeping too much: not at all 4. Feeling tired or having little energy: not at all 5. Poor appetite or overeating: several days 6. Feeling bad about yourself - or that you are a failure or have let yourself or your family down: not at all 7. Trouble concentrating on things, such as reading the newspaper or watching television: not at all 8. Moving or speaking so slowly that other people could have noticed. Or the opposite - being so fidgety or restless that you have been moving around a lot more than usual: not at all 9. Thoughts that you would be better off or of hurting yourself in some way: not at all Total score: 1 Depression Screening Interpretation: Negative Depression Screening Done: Yes 23788 - PHQ-9 Billing: Yes Source: Developed by Drs. Henry Tony, Angie Funes, Lito Jean-Baptiste and colleagues, with an educational kinza from [employer]. Thrive Questionnaire Date Thrive assessed: 08/29/24 I am a: Patient What is your living situation today?: I have a steady place to live Within the past 12 months, did the food you bought not last and you didn't have the money to get more?: Never true Within the past 12 months, did you worry whether your food would run out before you got money to buy more?: Never true Do you have trouble paying for medicines?: No Do you have trouble getting transportation to medical appointments?: No Do you have trouble paying your heating and electricity bill?: No Do you have trouble taking care of your child, family member or friend?: No Do you have trouble with day-to-day activities such as bathing, preparing meals, shopping, managing finances, etc.?: No Are you currently unemployed and looking for a job?: No Are you interested in more education?: No Please select the resources that you would like help with: None Currently or been in a relationship where the following occur: No concerns reported THRIVE Score: 0 AUDIT C Alcohol Use Questionnaire (AUDIT-C) 1. How often do you have a drink containing alcohol?: Monthly or less 2. How many drinks containing alcohol do you have on a typical day when you are drinking?: 1 or 2 3. How often do you have six or more drinks on one occasion?: Never Total Score: 1 BUDDY-7 AMB Questionnaire BUDDY-7 Date BUDDY - 7 assessed: 01/03/25 Feeling nervous, anxious, or on edge: 0 = Not at all Not being able to stop or control worryin = Not at all Worrying too much about different things: 0 = Not at all Trouble relaxin = Not at all Being so restless that it is hard to sit still: 0 = Not at all Becoming easily annoyed or irritable: 1 = Several days Feeling afraid as if something awful might happen: 0 = Not at all Total BUDDY-7 score (0-4 normal; 5-9 mild; 10-14 moderate; 15-21 severe): 1 Source: Developed by Drs. Henry Tony, Angie Funes, Lito Jean-Baptiste and colleagues, with an educational kinza from [employer]. BUDDY-7 Assessment Billing BUDDY-7 Assessment Tool: BUDDY-7 Assessment 18432 Review of Systems Const Denies chills, Denies fatigue, Denies fever(s), Denies headache(s) and Denies weakness ENT Denies dizziness and Denies headache(s) Card Reports lightheadedness and Denies dyspnea Resp Denies cough, Denies dyspnea, Denies wheezing and Denies other (shortness of breath) Musc Denies numbness and Denies tingling Neuro Denies dizziness, Denies headache(s), Denies numbness, Denies tingling and Denies weakness Psych Denies anxiety and Denies depression Endo Denies fatigue Aller/Immun Denies wheezing Physical exam (Primary Care) Vital Signs: Last Vital Signs Temp 98.8 F 01/03/25 13:50 Pulse 61 01/03/25 13:50 Resp 16 01/03/25 13:50 BP 120/60 01/03/25 13:50 Pulse Ox 97 01/03/25 13:50 Oxygen Delivery Method Room Air 01/03/25 13:50 BMI result Body Mass Index 24.4 Tobacco/Smoking Status: Tobacco use Status Tobacco use date assessed 08/29/24 01/03/25 13:46 Patient Tobacco Use Status Former Tobacco user 01/03/25 13:46 Tobacco use type Cigar 01/03/25 13:46 e-Cigarette/Vaping Use Never Used 01/03/25 13:46 PHQ-9: PHQ-9 Score PHQ-9: Total score 1 01/03/25 14:23 Depression Screening Interpretation: Negative Thrive Assessment: Date of Thrive Assessment Date Thrive assessed 08/29/24 01/03/25 13:46 Currently or been in a relationship where the following occur: No concerns reported Const General: well developed; No acute distress Nutritional Appearance: well nourished Orientation/consciousness: patient oriented x3 HENMT Head: Yes normocephalic and Yes atraumatic Eyes General: appearance normal, both eyes and all related structures Pupils: Equal, round and reactive pupils present EOM: EOMs intact bilaterally Resp Effort & Inspection: normal respiratory effort Auscultation: clear to auscultation bilaterally Cardio Rate: regular rate Rhythm: regular rhythm Heart sounds: S1 normal heart sound present, S2 normal heart sound present, no gallops, no murmurs and no rubs Neuro General: patient oriented x3 and gait normal Cranial nerves: Yes Equal, round and reactive pupils present Psych Affect: normal affect Coding Level of Care Code Est Pt Level 4 (30304) Diagnoses Primary hypertension I10 Hypertension type: primary hypertension Coronary artery disease involving [place] heart, unspecified vessel or lesion type, unspecified whether angina present I25.10 Associated angina: unspecified whether angina present Coronary Disease-Associated Artery/Lesion type: unspecified vessel or lesion type [place] vs. transplanted heart: [place] heart Lightheadedness R42 Influenza J11.1 Additional Codes BUDDY-7 Assessment Billing - BUDDY-7 Assessment Tool: BUDDY-7 Assessment 60536 ([id number]) PHQ-9 - 19129 - PHQ-9 Billing: Yes ([id number]) Assessment & Plan Assessment & Plan (1) Hypertension: Code(s): I10 - Essential (primary) hypertension Category: Medical Qualifiers: Hypertension type: primary hypertension Qualified Code(s): I10 - Essential (primary) hypertension Plan: Blood?pressure?is?well?controlled.??Goal?is?less?than?130/80 Continue?current?medications?as?prescribed (2) CAD (coronary artery disease): Code(s): I25.10 - Atherosclerotic heart disease of [place] coronary artery without angina pectoris Category: Medical Qualifiers: Associated angina: unspecified whether angina present Coronary Disease- Associated Artery/Lesion type: unspecified vessel or lesion type [place] vs. transplanted heart: [place] heart Qualified Code(s): I25.10 - Atherosclerotic heart disease of [place] coronary artery without angina pectoris Plan: History?of?coronary?artery?disease?and?had?cardiac?rehab. Overall?did?well?but?does?have?some?lightheadedness-see?below Follow-up?with?Cardiology?- has?appointment?next?week (3) Lightheadedness: Code(s): R42 - Dizziness and giddiness Category: Medical Plan: Lightheadedness. Patient?had?previously?s tated?he?has?Meniere's?and?was?noting?tinnitus?as?well?and?describes?this?feelin g?as??dizziness? However,?patient?had?some?physical?therapy?in?was?told?they?did?not?feel?this?wa s?a?vertigo. On?further ?discussion?today,?he?notes?that?the?lightheadedness?is?not?a?sensation?tumbling ?or?spinning and describes as lightheadedness. Patient?had?carotid?Dopplers?less?than?a?year?ago?which?did?not?show?a ny?hemodynamically?significant?stenoses. He?has?an?upcoming?appointment?with?his?sound effects technician?and?I?concerned?that?this?s till?represents?a?cardiovascular?issue?more?than?a?vestibular?issue. Follow-up?with?Cardiology (4) Influenza: Code(s): J11.1 - Influenza due to unidentified influenza virus with other respiratory manifestations Category: Medical Plan: Patient?had?recent?influenza?infection. He?is?now?breathing?easily?and?lungs?are?clear.
[2025-01-03 13:50] VITALS: BP 120/60; PULSE 61; RESP 16; TEMP 37.1; O2SAT 97; BMI 24.4
== END 2025-01-03 14:36 | disposition home or self-care (01) ==
LOC: HO.HMCFM 13:40
PROVIDERS: PCP Family Medicine; Visit Provider Family Medicine
DX: I10 Essential (primary) hypertension (principal); I25.10 Atherosclerotic heart disease of native coronary artery without angina pectoris; R42 Dizziness and giddiness; J11.1 Influenza due to unidentified influenza virus with other respiratory manifestations

== ENCOUNTER → 2025-01-03 13:39 | Outpatient (BNVA) | payer MEDICARE, OTHER, SELFPAY | PROVIDERS: PCP Family Medicine; Visit Provider Family Medicine | DX: I10 Essential (primary) hypertension (principal); I25.10 Atherosclerotic heart disease of native coronary artery without angina pectoris; R42 Dizziness and giddiness; J11.1 Influenza due to unidentified influenza virus with other respiratory manifestations | CPT/HCPCS: 96127; 99212 ==

== ENCOUNTER 2025-01-06 13:23 | Outpatient (AMB) | payer MEDICARE, OTHER, SELFPAY ==
[2025-01-06 13:29] VITALS: BP 110/68; PULSE 57; BMI 24.7
--- NOTE | 2025-01-06 13:29 | MHC.OFFVIS ---
Vital Signs 01/06/25 13:29 Height 5 ft 10 in Weight 171 lb 15.369 oz BMI 24.7 BP 110/68 Blood Pressure Location Lt brachial Position Sitting Pulse 57 Intake Visit Reasons: 3 mth fu Intake Note: 3 month follow-up has found many family members have carditid dz ? 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: No Allergies cat dander Allergy (Mild, Verified 01/03/25 13:48) bumps on skin, eyes and nose closes Latex, Natural Rubber Allergy (Mild, Verified 01/03/25 13:48) itchy skin No Known Drug Allergies Allergy (Unknown, Verified 01/03/25 13:48) Unknown pollen Allergy (Mild, Uncoded 10/28/24 14:35) Unknown isosorbide Adverse Reaction (Uncoded 10/28/24 14:35) itchy watery eyes Medication List - Last Reconciled 01/06/25 by Suman Fraga MD amlodipine 2.5 mg PO DAILY aspirin (Adult Aspirin Regimen) 81 mg PO DAILY atorvastatin 40 mg PO BEDTIME garlic 1,000 mg PO DAILY magnesium 200 mg PO DAILY mecobalamin (vitamin B12) 1,000 mcg sublingual DAILY metoprolol succinate ER 50 mg PO DAILY 90 days omega 4-wqr-dcy-fish oil 1,200 (144-216) mg (Fish Oil) caps PO pantoprazole 40 mg PO DAILY thiamine HCl (vitamin B1) 100 mg PO DAILY valsartan 40 mg PO BEDTIME vitamin K2 100 mcg PO DAILY HPI Comments Details: Abdirahman comes for follow-up. Planes of lightheadedness especially when he changes position. During 1 of the episodes when he had fluid he had actually passed out. Subsequently he was also noted to have markedly elevated blood pressure. He otherwise says blood pressure in the 105 systolic range. Symptoms were worse when he was started on medicine for prostate issues. Symptoms have been worse since been started on amlodipine therapy. Drinks about 40 oz of fluids daily. Denies any anginal symptoms on amlodipine therapy. Carotid duplex at shown mild disease. [facility] Medical History Hearing loss Vertigo Hypertension CAD (coronary artery disease) History of [place] (myocardial infarction) No pertinent past medical history Surgical History History of cardiac cath Stented coronary artery H/O removal of cyst H/O shoulder surgery Hx of hernia repair Status post surgical removal of neoplasm of skin Hx of appendectomy Hx of cataract surgery Family History Father Heart problem Mother Heart problem Sister Mini stroke Social History Household Members: Family Both parents involved: No Caregiver staying overnight: No Housing: House Are you a primary care team coordinator scheduler to a significant other at home: No Do you presently have visiting nurse or other home services: No 75 years or older and lives alone: No Alcohol intake: current Alcohol intake frequency: a few times a month Alcohol type: beer and wine Patient Tobacco Use Status: Former Tobacco user Tobacco use type: Cigar e-Cigarette/Vaping Use: Never Used service: No Current occupational status: employed 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 [employer] Current occupational exposures/hazards: No Cognitive needs: No Hearing needs: No Vision needs: Yes Review of Systems Const Denies chills, Denies fatigue, Denies fever(s), Denies frequent falls, Denies weakness, Denies weight gain and Denies weight loss ENT Denies dizziness Card Denies chest pain, Denies leg edema, Denies lightheadedness, Denies palpitations, Denies dyspnea, Denies dyspnea on exertion, Denies orthopnea and Denies other (loss of consciousness) Resp Denies cough, Denies dyspnea and Denies dyspnea on exertion GI Denies hematochezia and Denies change in stool character Musc Denies abnormal gait, Denies muscle weakness, Denies numbness, Denies radiating pain into limb and Denies tingling Neuro Denies Abnormal speech present, Denies abnormal gait, Denies dizziness, Denies frequent falls, Denies numbness, Denies tingling and Denies weakness Endo Denies fatigue and Denies palpitations Physical Exam Vital Signs: Last Vital Signs Pulse 57 01/06/25 13:29 BP 110/68 01/06/25 13:29 BMI result Body Mass Index 24.7 Const General: cooperative, comfortable, no acute distress, well developed, alert, awake and Physically active Nutritional Appearance: average body habitus and well nourished Orientation/consciousness: patient oriented x3 Limitations: no limitations HEENT Head: Yes normocephalic and Yes atraumatic Neck Neck: Yes trachea midline, Yes supple and Yes no JVD Carotids: no bruits Resp Effort & Inspection: normal respiratory effort Auscultation: clear to auscultation bilaterally Cardio Jugular venous distension: no JVD Palpation: normal PMI Rate: regular rate Rhythm: regular rhythm Heart sounds: S1 normal heart sound present, S2 normal heart sound present, no click, no gallops, no murmurs and no rubs GI Auscultation: normal bowel sounds Skin General skin exam: no rashes or lesions noted Neuro General: patient oriented x3 and no focal motor deficits Speech: No Abnormal speech present Extrem General: Yes no clubbing, cyanosis or edema Psych Appearance: grossly normal Assessment & Plan Assessment & Plan (1) Orthostatic lightheadedness: Code(s): R42 - Dizziness and giddiness Category: Medical Plan: Symptoms are suggestive of orthostatic lightheadedness and were made by prostate medications which are known to cause worsening of orthostasis. They have been discontinued. I think also over corrected blood pressure currently on multiple medications. I have advised him to start valsartan therapy and continue amlodipine therapy. See below. Also advised to increase his fluid intake to 60-80 oz a day. Orthostatic precautions were discussed. Given that he had episodes of marked hypotension in acute medical situations, renal artery stenosis need to be ruled out which can make labile blood pressure issues. (2) CAD (coronary artery disease): Code(s): I25.10 - Atherosclerotic heart disease of [place] coronary artery without angina pectoris Category: Medical Qualifiers: Associated angina: unspecified whether angina present Coronary Disease-Associated Artery/Lesion type: unspecified vessel or lesion type [place] vs. transplanted heart: [place] heart Qualified Code(s): I25.10 - Atherosclerotic heart disease of [place] coronary artery without angina pectoris Plan: CAD with diffuse coronary disease with occluded PDA with symptoms of angina which has resolved on dual antianginal therapy with amlodipine and metoprolol. Continue the same continue low-dose aspirin therapy for life. Continue current statin therapy with target goal LDL closer to 60 mg/dL. Advised to monitor blood pressure at home maintain a log. Maintain activity level as tolerated. Will follow up in the clinic in 6 months time, sooner p.r.n.. Thank you for allowing me to partake in his care Orders: Orders US renal doppler Today I10 - Essential (primary) hypertension Medications: Discontinued valsartan Discontinued Reason: Doctor's Order 40 mg PO BEDTIME 90 tabs 3RF Coding Level of Care Code Est Pt Level 4 (37143) Complex EM visit Add On G2211 Diagnoses Orthostatic lightheadedness R42 Coronary artery disease involving [place] heart, unspecified vessel or lesion type, unspecified whether angina present I25.10 Associated angina: unspecified whether angina present Coronary Disease-Associated Artery/Lesion type: unspecified vessel or lesion type [place] vs. transplanted heart: [place] heart
--- OUTSIDE RECORDS SUMMARY | 2025-01-06 15:04 | XMS_ITS | Clinical Summary ---
Author Organization [facility] ity Address [address] [place] [address] Care Team Providers Care Rehab Aide Name Role Phone Miguel Angel Garcia MD Primary Care Provider +1- [phone] Allergies Active Allergy Reactions Criticality Noted Date [...] PM EDT Office Visit Vascular Surgery - [place] [address] [place] [id number] Nereida Charles MD [address] [place] [address] Health Maintenance Due Date Last Done Comments [...] age to complete this topic Care Teams Rehab Aide Relationship Specialty Start Date End Date Miguel Angel Garcia MD [address] PCP - General Internal Medicine 01/27/21
--- OUTSIDE RECORDS SUMMARY | 2025-01-06 15:04 | XMS_ITS | Clinical Summary ---
Author Organization [facility] Address [address] [place] [address] Care Team Providers Care Dealmaker Name Role Phone Hector Colindres MD Primary Care Provider +1- [phone] Allergies Active Allergy Reactions Criticality Noted Date [...] Description 10/15/2024 2:30 PM EST Office Visit [facility] [address] [address] Nagi Georges MD Dizziness (Primary Dx); BPPV [...] age to complete this topic Care Teams Dealmaker Relationship Specialty Start Date End Date Hector Colindres MD [address] [place] [address] [place] [address] PCP - General Family Medicine 10/15/24
== END 2025-01-06 13:50 | disposition home or self-care (01) ==
LOC: HO.HCS 13:24
PROVIDERS: PCP Family Medicine; Visit Provider Internal Medicine Cardiovascular Disease
DX: R42 Dizziness and giddiness (principal); I25.10 Atherosclerotic heart disease of native coronary artery without angina pectoris
CPT/HCPCS: 99214; G2211

== ENCOUNTER → 2025-01-06 13:23 | Outpatient (BNVA) | payer MEDICARE, OTHER, SELFPAY | PROVIDERS: PCP Family Medicine; Visit Provider Internal Medicine Cardiovascular Disease | DX: I10 Essential (primary) hypertension (principal); I25.10 Atherosclerotic heart disease of native coronary artery without angina pectoris; R42 Dizziness and giddiness | CPT/HCPCS: 99212 ==

== ENCOUNTER → 2025-02-05 14:39 | Outpatient (BNVA) | payer MEDICARE, OTHER, SELFPAY | PROVIDERS: PCP Family Medicine; Visit Provider Internal Medicine Cardiovascular Disease | DX: Z13.89 Encounter for screening for other disorder (principal) ==

== ENCOUNTER 2025-03-11 11:43 | Outpatient (AMB) | payer MEDICARE, OTHER, SELFPAY ==
--- NOTE | 2025-03-11 11:51 | A.OFFVIS_ITS ---
Intake Visit Reasons: Followup/labs Intake Note: Patient presents today for follow up on: enlarged prostate, nocturia, renal cyst, and ultrasound results Imaging Completed: 12/09/24 Urology Medication: none Antibiotic Allergy:none Blood Thinner:aspirin PVR: 5ml's Kettle Chipper Required: No Accompanied by: Self / Same As Patient Allergies cat dander Allergy (Mild, Verified 03/11/25 12:18) bumps on skin, eyes and nose closes Latex, Natural Rubber Allergy (Mild, Verified 03/11/25 12:18) itchy skin No Known Drug Allergies Allergy (Unknown, Verified 03/11/25 12:18) Unknown pollen Allergy (Mild, Uncoded 03/11/25 12:18) Unknown isosorbide Adverse Reaction (Uncoded 03/11/25 12:18) itchy watery eyes Medication List - Last Reconciled 03/11/25 by RAMONA Tinsley-PHILLIP amlodipine 2.5 mg PO DAILY aspirin (Adult Aspirin Regimen) 81 mg PO DAILY garlic 1,000 mg PO DAILY magnesium 200 mg PO DAILY mecobalamin (vitamin B12) 1,000 mcg sublingual DAILY metoprolol succinate ER 50 mg PO DAILY 90 days pantoprazole 40 mg PO DAILY 30 days tadalafil (Cialis) 5 mg PO DAILY 90 days thiamine HCl (vitamin B1) 100 mg PO DAILY vitamin K2 100 mcg PO DAILY HPI Comments Details: Abdirahman is a very pleasant 74-year-old male patient of Dr. Colindres. He has a past medical history of coronary artery disease, [place] in 2016 with a stent placed, hypertension, peripheral vascular disease, esophageal stricture, and hepatitis. He presents to the office today for follow-up of his ongoing lower urinary tract symptoms and complex right renal cyst. In discussion with the patient today reports to be doing and feeling well. He reports since his last office visit here he has since discontinued his alfuzosin as he has been having ongoing issues with hyper and hypotension. He discusses having a follow- up with Cardiology and will be undergoing renal Doppler for further assessment evaluation. He discusses continuing to undergo cardiac rehab here at [facility] [place]. He discusses that although he does continue to experience episodes of urinary hesitancy, nocturia, and weak urinary stream he does feel symptoms are somewhat manageable independently. He has previously trialed Flomax however felt this was causing issues with libido and fatigue and therefore has also been discontinued. He denies urinary urgency, urinary frequency, incontinence, hematuria, dysuria, foul smelling urine, flank pain, fever, and or chills. In office urinalysis results reviewed with the patient today. PVR 5ml's. Recent renal imaging results were reviewed with the patient today 12/31 bilateral renal cortical calcifications. There is a nonobstructive echogenic stone in the lower pole of the right kidney measuring 2 mm. No hydronephrosis noted bilaterally. Bilateral renal cysts which are stable when compared to previous CT 05/01. PSAs are as follows: 04/30 1.0, 09/01 1.0 We discussed at length potential causes of low libido, ED, and lower urinary tract symptoms patient is experiencing. We discussed further interventions and risks and benefits of these interventions. We also discussed potential near future in office cystoscopy and or urodynamics for further assessment evaluation. In office urinalysis results reviewed with the patient today. PVR 5 mL. We also discussed lifestyle modifications to assist with urological conditions. All questions were answered. He otherwise denies any other issues or concerns at this time. [facility] Medical History Hearing loss Vertigo Hypertension CAD (coronary artery disease) History of [place] (myocardial infarction) No pertinent past medical history Surgical History History of cardiac cath Stented coronary artery H/O removal of cyst H/O shoulder surgery Hx of hernia repair Status post surgical removal of neoplasm of skin Hx of appendectomy Hx of cataract surgery Family History Father Heart problem Mother Heart problem Sister Mini stroke Social History Household Members: Family Both parents involved: No Caregiver staying overnight: No Housing: House Are you a primary physician primary care sports medicine to a significant other at home: No Do you presently have visiting nurse or other home services: No 75 years or older and lives alone: No Alcohol intake: current Alcohol intake frequency: a few times a month Alcohol type: beer and wine Patient Tobacco Use Status: Former Tobacco user Tobacco use type: Cigar e-Cigarette/Vaping Use: Never Used service: No Current occupational status: employed 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 [employer] Current occupational exposures/hazards: No Cognitive needs: No Hearing needs: No Vision needs: Yes Review of Systems Const Reports no additional complaints Eyes Reports no additional complaints ENT Reports no additional complaints Card Reports as per HPI Resp Reports no additional complaints GI Reports as per HPI Reports as per HPI Musc Reports no additional complaints Neuro Reports no additional complaints Psych Reports no additional complaints Endo Reports no additional complaints Jean/Lymph Reports no additional complaints Aller/Immun Reports no additional complaints Physical Exam Const General: cooperative, healthy appearing, comfortable, no acute distress, well developed, alert and awake Orientation/consciousness: patient oriented x3 Limitations: no limitations HEENT Head: Yes normal to inspection, Yes normocephalic and Yes atraumatic Ears: hearing grossly normal bilaterally Eyes General: appearance normal, both eyes and all related structures Neck Neck: Yes normal visual inspection and Yes trachea midline Chest Chest palpation & inspection: normal inspection of the chest Resp Effort & Inspection: normal respiratory effort and able to speak in complete sentences Cardio Rate: regular rate GI Inspection: Yes normal to inspection General: Yes no CVA tenderness Back/Spine/Pelvis Back: no CVA tenderness Skin General skin exam: no rashes or lesions noted Neuro General: patient oriented x3 Extrem General: Yes normal to inspection Psych Appearance: grossly normal and well kempt Mental Status: mental status grossly normal Speech and movement: Normal speech and movement present and Clear speech present Affect: normal affect Attitude: cooperative Thought process: Normal thought process present Thought content: Normal thought content present Insight: Fair insight present (Psych) Judgement: Fair judgement present (Psych) Office Procedures Post Void Residual Post Residual Void Post Void Residual (PVR): 5 [id number]-[id number] Void Residual by ultrasound Results AMB Urinalysis, Automated UA Leukoctes 0 Lyndsey/uL Last Edit by SMA Иван on 03/11/25 12:06 UA Nitrite Last Edit by SMA Иван on 03/11/25 12:06 UA Urobilinogen 3.5 mg/dL Last Edit by Uri Lindsay, [facility] on 03/11/25 12:06 UA Protein 0 mg/dL Last Edit by Uri Lindsay, [facility] on 03/11/25 12:06 UA pH 6.0 Last Edit by Uri Lindsay, [facility] on 03/11/25 12:06 UA Blood 0 Mario/uL Last Edit by Uri Lindsay, [facility] on 03/11/25 12:06 UA Specific [place] 1.015 Last Edit by Uri Lindsay, [facility] on 03/11/25 12:06 UA Ketone Last Edit by Uri Lindsay, [facility] on 03/11/25 12:06 UA Bilirubin 0 mg/dL Last Edit by Uri Lindsay, [facility] on 03/11/25 12:06 UA Glucose 0 mg/dL Last Edit by Uri Lindsay, [facility] on 03/11/25 12:06 AMB Urinalysis, Automated UA Leukoctes 0 Lyndsey/uL Last Edit by Uri Lindsay, [facility] on 03/11/25 12:09 UA Nitrite Last Edit by Uri Lindsay, [facility] on 03/11/25 12:09 UA Urobilinogen 3.5 mg/dL Last Edit by Uri Lindsay, [facility] on 03/11/25 12:09 UA Protein 0 mg/dL Last Edit by Uri Lindsay, [facility] on 03/11/25 12:09 UA pH 6.0 Last Edit by Uri Lindsay, [facility] on 03/11/25 12:09 UA Blood 0 Mario/uL Last Edit by Uri Lindsay, [facility] on 03/11/25 12:09 UA Specific [place] 1.015 Last Edit by Uri Lindsay, [facility] on 03/11/25 12:09 UA Ketone Last Edit by Uri Lindsay, [facility] on 03/11/25 12:09 UA Bilirubin 0 mg/dL Last Edit by Uri Lindsay, [facility] on 03/11/25 12:09 UA Glucose 0 mg/dL Last Edit by Uri Lindsay, [facility] on 03/11/25 12:09 Results Reviewed Results Reviewed: Laboratory Last Values Urine pH (Auto) 6.0 03/11/25 12:08 Specific [place] (Auto) 1.015 03/11/25 12:08 Urine Protein (Auto) 0 mg/dL 03/11/25 12:08 Glucose (UA)(Auto) 0 mg/dL 03/11/25 12:08 Urine Blood (Auto) 0 Mario/uL 03/11/25 12:08 Urine Bilirubin (Auto) 0 mg/dL 03/11/25 12:08 Urine Urobilinogen (Auto) 3.5 mg/dL 03/11/25 12:08 Leukocyte Esterase (Auto) 0 Lyndsey/uL 03/11/25 12:08 Date of Service: 12/09/24 Procedure(s): US renal BI FINDINGS: RIGHT KIDNEY: 11.7 x 5.9 x 5.9 cm (SAG x AP x TRV). The kidney is normal in size, contour, and echogenicity. Renal cortical thickness is normal. There are multiple anechoic cysts. The largest mid pole cyst medially measures 3.3 x 3 0.5 to 3.[address] it measured 2.5 x 3.3 cm. There is a second small anechoic cyst in lower pole measuring 1.1 x 1.2 x 1.6 cm. There is an echogenic stone lower pole without shadowing measuring 0.2 x 0.1 x 0.2 cm. No hydronephrosis. LEFT KIDNEY: 12.1 x 5.3 x 4.4 cm (SAG x AP x TRV). The kidney is normal in size, contour, and echogenicity. Renal cortical thickness is normal. There are multiple anechoic cysts. The largest parapelvic mid pole cyst measures 0.7 x 1.0 x 0.7 cm. These were noted on the previous CT abdomen exam. 2 echogenic cortical calcifications in lower pole. No hydronephrosis. The bladder was not imaged. IMPRESSION: Bilateral renal cortical calcifications.. There is a nonobstructive echogenic stone lower pole right kidney. Bilateral renal cysts which are stable compared to previous CT abdomen exam 04/12/2024. There is no hydronephrosis. Assessment & Plan Assessment & Plan (1) Low libido: Code(s): R68.82 - Decreased libido Category: Medical (2) Renal cyst: Code(s): N28.1 - Cyst of kidney, acquired Category: Medical (3) Complex renal cyst: Code(s): N28.1 - Cyst of kidney, acquired Category: Medical (4) Weak urinary stream: Code(s): R39.12 - Poor urinary stream Category: Medical (5) Nocturia: Code(s): R35.1 - Nocturia Category: Medical (6) Urinary hesitancy: Code(s): R39.11 - Hesitancy of micturition Category: Medical Plan In office urinalysis results reviewed with the patient today; as noted above. PVR 5 mL. Recent renal imaging results reviewed with the patient today; as noted above; will continue with surveillance monitoring. Stop alfuzosin. Start 5 mg of Cialis daily as discussed and prescribed. We discussed potential causes of ED, low libido, and lower urinary tract symptoms patient experiences. We discussed further treatment options and risks and benefits of these treatment options. We also discussed potential near future in office cystoscopy and or urodynamics for further assessment evaluation if symptoms persist and/or worsen. We did discussed the importance of lifestyle modifications to assist with urological conditions as well as overall health and well-being. Will obtain PSA and testosterone. Follow-up in 3 months with labs and PVR; or sooner with any issues, concerns, and or questions. Orders: Orders AMB Post Void Residual by ultrasound Today R39.12 - Poor urinary stream AMB Urinalysis Automated Today Z13.9 - Encounter for screening, unspecified AMB Urinalysis Automated Today Z13.9 - Encounter for screening, unspecified Prostate Specific Antigen 3 Months N40.0 - Benign prostatic hyperplasia without lower urinary tract symptoms Testosterone, Free/Total 3 Months R68.82 - Decreased libido Medications: New tadalafil (Cialis) [id number] [facility] [id number] Member [id number] 5 mg PO DAILY 90 tabs 0RF 90 days Patient Instructions: The patient had an opportunity to ask questions regarding the treatment plan. All questions were answered. Physical exam, labs, and imaging were discussed and reviewed in detail. As well as risks, benefits, and discussion of treatment choices. No major barriers to understanding were identified. The patient expressed understanding and agreement with the above treatment plan. The patient was made aware they should contact our office by phone for worsening of their current condition, the appearance of new symptoms, or with any questions or concerns. Compliance is encouraged with any medications and follow up testing that is ordered. It is a privilege to be allowed the opportunity to participate in? your urological care.? Again, if you have any questions or con cerns If you have any questions or concerns please do not hesitate to contact me. The office is [phone]. This note is constructed using voice recognition software. While every effort has been made to ensure accuracy locker room supervisor errors may have been included. Yours sincerely, PEDRO Tinslye Coding Level of Care Code Est Pt Level 4 (77919) Complex EM visit Add On G2211 Diagnoses Low libido R68.82 Renal cyst N28.1 Complex renal cyst N28.1 Weak urinary stream R39.12 Nocturia R35.1 Urinary hesitancy R39.11 CPT Codes Post Residual Void - PVR CPT Code: [id number]-[id number] Void Residual by ultrasound ([id number])
--- OUTSIDE RECORDS SUMMARY | 2025-03-11 13:18 | XMS_ITS | Clinical Summary ---
Author Organization [facility] ity Address [address] [place] [address] Care Team Providers Care Superintendent [employer] Name Role Phone Miguel Angel Garcia MD Primary Care Provider [phone] Allergies Active Allergy Reactions Criticality Noted Date [...] PM EDT Office Visit [facility] [place] [address] [place] [id number] Nereida Charles MD [address] [place] [address] Health Maintenance Due Date Last Done Comments DTaP,Tdap,and Td Vaccines (1 - Tdap) 1971 Pneumococcal Vaccine: 50+ Ye ars (1 of 1 - PCV) 2002 Zoster Vaccines (1 of 2) 2002 RSV Immunization Adult Patie nts (1 - Risk 60-74 years 1-dose series) 2012 Abdominal Aortic Aneurysm (A AA) Screen 09/18/2022 Cholesterol Screening (Lipid Panel) 09/18/2022 Colorectal Cancer Screening: Colonoscopy 09/18/2022 Depression Screening 09/18/2022 Falls Risk Assessment 09/18/2022 Hepatitis C Screening 09/18/2022 Social Influencers of Health Screening 09/18/2022 COVID-19 Vaccine (1 - 2023-2 5 season) 2024 Influenza Vaccine (Season Ended) 2025 HIB Vaccines Aged Out No longer eligi [...] age to complete this topic Meningococcal B Vaccine Aged Out No l onger eligible based on patient's age to complete this topic RSV Immunization Patients Un enrique 20 months Aged Out No longer eligible b ased on patient's age to complete this topic Varicella Vaccines Aged Out No longer eligible based on patient's age to complete this topic Care Teams Superintendent [employer] Relationship Specialty Start Date End Date Miguel Angel Garcia MD [address] PCP - General Internal Medicine 01/27/21
== END 2025-03-11 12:26 | disposition home or self-care (01) ==
LOC: HO.HUSH 11:46
PROVIDERS: PCP Family Medicine; Visit Provider Nurse Practitioner Family
DX: R68.82 Decreased libido (principal); N28.1 Cyst of kidney, acquired; R39.12 Poor urinary stream; R35.1 Nocturia; R39.11 Hesitancy of micturition; Z13.9 Encounter for screening, unspecified
CPT/HCPCS: 99214; G2211

== ENCOUNTER → 2025-03-11 11:43 | Outpatient (BNVA) | payer MEDICARE, OTHER, SELFPAY | PROVIDERS: PCP Family Medicine; Visit Provider Nurse Practitioner Family | DX: N40.1 Benign prostatic hyperplasia with lower urinary tract symptoms (principal); R35.1 Nocturia; N28.1 Cyst of kidney, acquired; R68.82 Decreased libido; R39.12 Poor urinary stream; R39.11 Hesitancy of micturition | CPT/HCPCS: 51798; 81003; 99212 ==

== ENCOUNTER 2025-03-13 15:11 | Outpatient (AMB) | payer MEDICARE, OTHER, SELFPAY ==
--- NOTE | 2025-03-13 15:17 | A.OFFPC_ITS ---
Vital Signs 03/13/25 15:20 Height 5 ft 10 in Weight 165 lb 8 oz BMI 23.7 BP 110/59 L Blood Pressure Location Lt brachial Position Sitting Respiration 12 Pulse 56 Pulse Source Pulse Oximeter Temp 98.1 F Temp Source Oral Pulse Oximetry (%) 97 Oxygen Delivery Method Room Air Intake Visit Reasons: f/u CAD, lightheadedness, chronic conditions Intake Note: patient is scheduled to follow up on CAD lightheadedness due to new medication cialis and chronic conditions Deblocker Required: No Allergies cat dander Allergy (Mild, Verified 03/13/25 15:18) bumps on skin, eyes and nose closes Latex, Natural Rubber Allergy (Mild, Verified 03/13/25 15:18) itchy skin No Known Drug Allergies Allergy (Unknown, Verified 03/13/25 15:18) Unknown pollen Allergy (Mild, Uncoded 03/11/25 12:18) Unknown isosorbide Adverse Reaction (Uncoded 03/11/25 12:18) itchy watery eyes Medication List - Last Reconciled 03/13/25 by Hector Colindres MD amlodipine 2.5 mg PO DAILY aspirin (Adult Aspirin Regimen) 81 mg PO DAILY atorvastatin 40 mg PO BEDTIME 90 days garlic 1,000 mg PO DAILY magnesium 200 mg PO DAILY mecobalamin (vitamin B12) 1,000 mcg sublingual DAILY metoprolol succinate ER 50 mg PO DAILY 90 days pantoprazole 40 mg PO DAILY 30 days tadalafil (Cialis) 5 mg PO DAILY 90 days thiamine HCl (vitamin B1) 100 mg PO DAILY vitamin K2 100 mcg PO DAILY Tobacco use date assessed: 08/29/24 Dental Screening Dental Screen Date: 08/29/24 HPI f/u CAD, lightheadedness, chronic conditions HPI Details 74 y/o male presents to f/u CAD, lighthe adedness, chronic conditions. Had seen Cardiology 01/06/25. Symptoms suggestive of orthostatic lightheadedness and were made by prostate meds which had been known to cause worsening of orthostasis. These were discontinued. US renal doppler ordered. Valsartan discontinued. Continues to f/u with urology for renal cyst, low libido, urinary hesitancy, weak urine stream. Has complaints of some rhinitis and L ear discomfort. [facility] Medical History Hearing loss Vertigo Hypertension CAD (coronary artery disease) History of [place] (myocardial infarction) No pertinent past medical history Surgical History History of cardiac cath Stented coronary artery H/O removal of cyst H/O shoulder surgery Hx of hernia repair Status post surgical removal of neoplasm of skin Hx of appendectomy Hx of cataract surgery Family History Father Heart problem Mother Heart problem Sister Mini stroke Social History Household Members: Family Both parents involved: No Caregiver staying overnight: No Housing: House Are you a primary health care technician to a significant other at home: No Do you presently have visiting nurse or other home services: No 75 years or older and lives alone: No Alcohol intake: current Alcohol intake frequency: a few times a month Alcohol type: beer and wine Patient Tobacco Use Status: Former Tobacco user Tobacco use type: Cigar e-Cigarette/Vaping Use: Never Used service: No Current occupational status: employed 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 [employer] Current occupational exposures/hazards: No Cognitive needs: No Hearing needs: No Vision needs: Yes Questionnaire Thrive Questionnaire Date Thrive assessed: 01/03/25 I am a: Patient What is your living situation today?: I have a steady place to live Within the past 12 months, did the food you bought not last and you didn't have the money to get more?: Never true Within the past 12 months, did you worry whether your food would run out before you got money to buy more?: Never true Do you have trouble paying for medicines?: No Do you have trouble getting transportation to medical appointments?: No Do you have trouble paying your heating and electricity bill?: No Do you have trouble taking care of your child, family member or friend?: No Do you have trouble with day-to-day activities such as bathing, preparing meals, shopping, managing finances, etc.?: No Are you currently unemployed and looking for a job?: No Are you interested in more education?: No Please select the resources that you would like help with: None Currently or been in a relationship where the following occur: No concerns reported THRIVE Score: 0 BUDDY-7 AMB Questionnaire BUDDY-7 Date BUDDY - 7 assessed: 01/03/25 Source: Developed by Drs. Henry Tony, Angie Funes, Lito Jean-Baptiste and colleagues, with an educational kinza from [employer]. Review of Systems Const Denies chills, Denies fatigue, Denies fever(s), Denies headache(s) and Denies weakness ENT Denies dizziness and Denies headache(s) Card Denies dyspnea Resp Denies cough, Denies dyspnea, Denies wheezing and Denies other (shortness of breath) Musc Denies numbness and Denies tingling Neuro Denies dizziness, Denies headache(s), Denies numbness, Denies tingling and Denies weakness Psych Denies anxiety and Denies depression Endo Denies fatigue Aller/Immun Denies wheezing Physical exam (Primary Care) Vital Signs: Last Vital Signs Temp 98.1 F 03/13/25 15:20 Pulse 56 03/13/25 15:20 Resp 12 03/13/25 15:20 BP 110/59 L 03/13/25 15:20 Pulse Ox 97 03/13/25 15:20 Oxygen Delivery Method Room Air 03/13/25 15:20 BMI result Body Mass Index 23.7 Tobacco/Smoking Status: Tobacco use Status Tobacco use date assessed 08/29/24 03/13/25 15:22 Patient Tobacco Use Status Former Tobacco user 03/13/25 15:22 Tobacco use type Cigar 03/13/25 15:22 e-Cigarette/Vaping Use Never Used 03/13/25 15:22 Thrive Assessment: Date of Thrive Assessment Date Thrive assessed 01/03/25 03/13/25 15:22 Currently or been in a relationship where the following occur: No concerns reported Const General: well developed; No acute distress Nutritional Appearance: well nourished Orientation/consciousness: patient oriented x3 HENMT Head: Yes normocephalic and Yes atraumatic Eyes General: appearance normal, both eyes and all related structures Pupils: Equal, round and reactive pupils present EOM: EOMs intact bilaterally Resp Effort & Inspection: normal respiratory effort Neuro General: patient oriented x3 and gait normal Cranial nerves: Yes Equal, round and reactive pupils present Psych Affect: normal affect Coding Level of Care Code Est Pt Level 4 (36290) Diagnoses Orthostatic lightheadedness R42 Primary hypertension I10 Hypertension type: primary hypertension Coronary artery disease involving [place] heart, unspecified vessel or lesion type, unspecified whether angina present I25.10 Associated angina: unspecified whether angina present Coronary Disease-Associated Artery/Lesion type: unspecified vessel or lesion type [place] vs. transplanted heart: [place] heart Urinary hesitancy R39.11 Rhinitis J31.0 Left serous otitis media H65.92 Assessment & Plan Assessment & Plan (1) Orthostatic lightheadedness: Code(s): R42 - Dizziness and giddiness Category: Medical Plan: Improved?off?of?valsartan Now?on?amlodipine?and?metoprolol. Still?gets?some?mild?orthostasis.??Hydrate?well He?will?let?know?if?anything?changes (2) Hypertension: Code(s): I10 - Essential (primary) hypertension Category: Medical Qualifiers: Hypertension type: primary hypertension Qualified Code(s): I10 - Essential (primary) hypertension Plan: Blood?pressure?is?controlled?on?amlodipine?and?metoprolol.??No?longer?on?valsart an Cardiology?questions?renal?artery?stenosis?and?is?checking?an?ultrasound (3) CAD (coronary artery disease): Code(s): I25.10 - Atherosclerotic heart disease of [place] coronary artery without angina pectoris Category: Medical Qualifiers: Associated angina: unspecified whether angina present Coronary Disease- Associated Artery/Lesion type: unspecified vessel or lesion type [place] vs. transplanted heart: [place] heart Qualified Code(s): I25.10 - Atherosclerotic heart disease of [place] coronary artery without angina pectoris Plan: Patient?is?taking?aspirin?atorvastatin?in?metoprolol Stable Follow-up?with?Cardiology?as?recommended (4) Urinary hesitancy: Code(s): R39.11 - Hesitancy of micturition Category: Medical Plan: Urology?is?using?tadalafil?in?patient?notices?improvement?in?urinary?symptoms Continue?this?as?prescribed?and?follow-up?with?Urology (5) Rhinitis: Code(s): J31.0 - Chronic rhinitis Category: Medical Plan: Start?Flonase (6) Left serous otitis media: Code(s): H65.92 - Unspecified nonsuppurative otitis media, left ear Category: Medical Plan: No?evidence?of?infection. Start?Flonase He?will?let?me?know?if?worsening?or?not?improving Medications: Changed From atorvastatin 40 mg PO BEDTIME 90 tabs 3RF To atorvastatin 40 mg PO BEDTIME 90 days 90 tabs 3RF
[2025-03-13 15:20] VITALS: BP 110/59; PULSE 56; RESP 12; TEMP 36.7; O2SAT 97; BMI 23.7
--- OUTSIDE RECORDS SUMMARY | 2025-03-13 17:49 | XMS_ITS | Clinical Summary ---
Author Organization [facility] ity Address [address] [place] [address] Care Team Providers Care Art Museum Docent Name Role Phone Miguel Angel Garcia MD Primary Care Provider +1- [phone] Allergies Active Allergy Reactions Criticality Noted Date [...] PM EDT Office Visit Vascular Surgery - [place] [address] [place] [id number] Nereida Charles MD [address] [place] [address] Health Maintenance Due Date Last Done Comments [...] age to complete this topic Care Teams Art Museum Docent Relationship Specialty Start Date End Date Miguel Angel Garcia MD [address] PCP - General Internal Medicine 01/27/21
== END 2025-03-13 15:44 | disposition home or self-care (01) ==
LOC: HO.HMCFM 15:12
PROVIDERS: PCP Family Medicine; Visit Provider Family Medicine
DX: R42 Dizziness and giddiness (principal); I10 Essential (primary) hypertension; I25.10 Atherosclerotic heart disease of native coronary artery without angina pectoris; R39.11 Hesitancy of micturition; J31.0 Chronic rhinitis; H65.92 Unspecified nonsuppurative otitis media, left ear

== ENCOUNTER → 2025-03-13 15:11 | Outpatient (BNVA) | payer MEDICARE, OTHER, SELFPAY | PROVIDERS: PCP Family Medicine; Visit Provider Family Medicine | DX: R42 Dizziness and giddiness (principal); I10 Essential (primary) hypertension; I25.10 Atherosclerotic heart disease of native coronary artery without angina pectoris; R39.11 Hesitancy of micturition; J31.0 Chronic rhinitis; H65.92 Unspecified nonsuppurative otitis media, left ear | CPT/HCPCS: 99212 ==

== ENCOUNTER 2025-04-03 08:08 | Outpatient (REF) | payer MEDICARE, OTHER, SELFPAY ==
--- NOTE | ~2025-04-03 | US_ITS ---
CLINICAL HISTORY: I10 - Essential (primary) hypertension US Renal with Doppler Comparison: None provided Findings: Right kidney normal size and echotexture, 12.1 cm length. No hydronephrosis. Normal color Doppler. Resistive index 0.7. Left kidney normal size and echotexture, 10.9 cm length. No hydronephrosis. Normal color Doppler. Resistive index 0.8. Urinary bladder is not evaluated on the current exam IMPRESSION: 1. Possible left renal artery stenosis. Clinically appropriate further evaluation possibly with CT or catheter angiography, recommended. This document has been electronically signed by: Sai Nicholson MD on 04/04/2025 08:54:05
--- OUTSIDE RECORDS SUMMARY | 2025-04-03 08:17 | XMS_ITS | Clinical Summary ---
Author Organization [facility] Address [address] [place] [address] Care Team Providers Care Utility Mechanic Name Role Phone Hector Colindres MD Primary Care Provider [phone]- [phone] Allergies Active Allergy Reactions Criticality Noted Date Comments Latex Unknown/Patient and Family Unable to Define Medium 10/15/2024 Medications atorvastatin (LIPITOR) 80 MG tablet Take 80 mg by mouth. 08/18/2024 Active valsartan (DIOVAN) 40 MG tablet Take 40 mg by mouth nightly. 09/15/2024 Active metoPROLOL SUCCINATE (TOPROL-XL) 50 MG 24 hr tablet Take 50 mg by mouth. 09/20/2024 Active Social History Tobacco Use Types Packs/Day Years Used Date Smoking Tobacco: Former Cigarettes Tobacco Cessation:Counseling Given: Not Answered Comments Unknown Sex and Gender Information Value Date Recorded Sex Assigned at Not on file Legal Sex Female 9:44 AM EDT Gender Identity Not on file Sexual Orientation [...] Density (Females,Ag es 65 and older) 2017 COVID-19 Vaccine (1 - 2023-2 5 season) 2024 Influenza Vaccine 05/09/2025 RSV Vaccine 60 years and old er and Patients (1 - 1-dose 75+ series) 2027 Hepatitis B Vaccines Aged Out No long er eligible based on patient's age to complete this topic Insurance MEDICARE PART A & B [facility] Care Teams Utility Mechanic Relationship Specialty Start Date End Date Hector Colindres MD [address] [place] [address] [place] [address] PCP - General Family Medicine 10/15/24
== END 2025-04-03 08:09 | disposition home or self-care (01) ==
LOC: HO.US 08:08
PROVIDERS: PCP Family Medicine; Visit Provider Internal Medicine Cardiovascular Disease
DX: I10 Essential (primary) hypertension (principal)
CPT/HCPCS: 93975

== ENCOUNTER → 2025-04-03 08:09 | Outpatient (BNV) | payer MEDICARE, OTHER, SELFPAY | PROVIDERS: PCP Family Medicine; Visit Provider Specialist | DX: I10 Essential (primary) hypertension (principal) | CPT/HCPCS: 93975 ==

== ENCOUNTER 2025-04-23 13:30 | Outpatient (RCR) | payer MEDICARE, OTHER, SELFPAY | END 2025-05-07 13:45 | disposition home or self-care (01) | LOC: HO.CR 13:30 | PROVIDERS: PCP Family Medicine; Visit Provider Nurse Practitioner Family | DX: I20.89 Other forms of angina pectoris (principal); R07.9 Chest pain, unspecified | CPT/HCPCS: 93798 ==

== ENCOUNTER 2025-05-01 10:47 | Outpatient (AMB) | payer MEDICARE, OTHER, SELFPAY ==
--- NOTE | 2025-05-01 10:51 | MHC.OFFVIS ---
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 Patient had a US renal doppler on 04/03/25. Patient states he has bilateral leg pain and cramps at night. He gets lightheaded when he walks or looks up. 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 Turns out that he was following [facility] for peripheral vascular disease with Dr. Charles. Upon discussion with him he is able to ambulate a mi or 2 with no significant difficulty. In addition a proximally a year ago he was evaluated for carotid disease as well. Most recently he was seen by Cardiology. At the current time there is concern about renal artery stenosis. He occasionally has lightheadedness upon positional changes. At the current time it appears he is being maintained on 2 antihypertensive medications and reports that he is fairly well controlled. It only becomes an issue when he is ill. He has had renal ultrasound and now presents for evaluation. [facility] Medical History Hearing loss Vertigo Hypertension CAD (coronary artery disease) History of [place] (myocardial infarction) No pertinent past medical history Surgical History History of cardiac cath Stented coronary artery H/O removal of cyst H/O shoulder surgery Hx of hernia repair Status post surgical removal of neoplasm of skin Hx of appendectomy Hx of cataract surgery Family History Father Heart problem Mother Heart problem Sister Mini stroke Social History Household Members: Family Both parents involved: No Caregiver staying overnight: No Housing: House Are you a primary patient care technician to a significant other at home: No Do you presently have visiting nurse or other home services: No 75 years or older and lives alone: No Alcohol intake: current Alcohol intake frequency: a few times a month Alcohol type: beer and wine Patient Tobacco Use Status: Former Tobacco user Tobacco use type: Cigar e-Cigarette/Vaping Use: Never Used service: No Current occupational status: employed 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 [employer] Current occupational exposures/hazards: No Cognitive needs: No Hearing needs: No Vision needs: Yes Review of Systems Const All systems reviewed & are unremarkable except as noted in HPI and below Reports no additional complaints ENT Reports Normal hearing present Card Denies chest pain, Denies chest pain at rest, Denies chest pain with activity and Denies pedal edema Resp Denies cough GI Denies abdominal pain Musc Denies abnormal gait, Denies muscle cramps and Denies radiating pain into limb Skin/Breast Denies skin ulcer and Denies wounds Neuro Reports Normal hearing present and Denies abnormal gait Psych Reports no additional complaints Physical Exam Const General: cooperative, healthy appearing and comfortable Orientation/consciousness: oriented to person, oriented to place and oriented to time HEENT Head: Yes normal to inspection Neck Neck: Yes normal visual inspection Carotids: no bruits Chest Chest palpation & inspection: normal inspection of the chest Resp Effort & Inspection: normal respiratory effort and able to speak in complete sentences Auscultation: clear to auscultation bilaterally, no crackles, no rales, no rhonchi and no wheezes Cardio Rate: regular rate Rhythm: regular rhythm Heart sounds: S1 normal heart sound present and S2 normal heart sound present Bruits: no carotid bruits Peripheral pulses: Peripheral pulses 2+ throughout GI Inspection: Yes normal to inspection Skin Wounds: no wounds Hair: normal Neuro General: oriented to person, oriented to place and oriented to time Cranial nerves: Yes CN's II-XII intact bilaterally and Yes Normal hearing present Cognition (Neuro): normal cognition Motor exam (neuro): 5/5 motor strength present throughout Extrem Other: venous exam: No significant superficial varicosities or spider telangiectasias, minimal edema General: No clubbing, No cyanosis and No edema Psych Appearance: grossly normal Mental Status: mental status grossly normal Speech and movement: Normal speech and movement present Results Reviewed Results Reviewed: Carotid ultrasound dated 05/14/2024 demonstrates bilateral 0-49% stenosis Renal ultrasound dated 04/03/2025 has question of left renal artery stenosis Written report and images of both studies were reviewed Assessment & Plan Assessment & Plan (1) Renal artery stenosis: Code(s): I70.1 - Atherosclerosis of renal artery Category: Medical Plan: I did have an opportunity to review the ultrasound. It is somewhat inconclusive. I did discuss the findings with the patient and we agreed that CT angiogram will better help elucidate the true degree of stenosis and if there contralateral disease. Patient will follow up with us after testing. (2) Peripheral vascular disease: Code(s): I73.9 - Peripheral vascular disease, unspecified Category: Medical Plan: He will transition his vascular care to us. Once we clarify the status of his renal arteries we will put him on a surveillance protocol for his peripheral vascular disease. At the current time he is relatively asymptomatic from this. He can walk a mi or 2 with no difficulty. In short patient has stable claudication. I did review the pathophysiology of peripheral vascular disease with the patient. In addition we did discuss routine conservative measures including a healthy diet and the importance of exercise and ambulation. We did discuss risk factor modification. (3) Bilateral carotid artery stenosis: Code(s): I65.23 - Occlusion and stenosis of bilateral carotid arteries Category: Medical Plan: It has been a proximally a year since his last carotid testing. Follow the within normal limits may be reasonable due to his history to re-evaluate this. Once again we will assess this once we better elucidate the status of his renal arteries. Thank you for allowing us to assist in his care. Orders: Orders Blood Urea Nitrogen Today I70.1 - Atherosclerosis of renal artery Creatinine Today I70.1 - Atherosclerosis of renal artery CT angio abdomen Today I70.1 - Atherosclerosis of renal artery Coding Level of Care Code New Pt Level 4 (01055) Complex EM visit Add On G2211 Diagnoses Renal artery stenosis I70.1 Peripheral vascular disease I73.9 Bilateral carotid artery stenosis I65.23
--- OUTSIDE RECORDS SUMMARY | 2025-05-01 11:38 | XMS_ITS | Clinical Summary ---
Author Organization [facility] Address [address] [place] [address] Care Team Providers Care Human Resource Management Instructor Name Role Phone Hector Colindres MD Primary Care Provider [phone]- [phone] Allergies Active Allergy Reactions Criticality Noted Date [...] topic Insurance MEDICARE PART A & B [facility] Care Teams Human Resource Management Instructor Relationship Specialty Start Date End Date Hector Colindres MD [address] [place] [address] [place] [address] PCP - General Family Medicine 10/15/24
== END 2025-05-01 11:21 | disposition home or self-care (01) ==
LOC: HO.HVS 10:48
PROVIDERS: PCP Family Medicine; Visit Provider Surgery Vascular Surgery
DX: I70.1 Atherosclerosis of renal artery (principal); I73.9 Peripheral vascular disease, unspecified; I65.23 Occlusion and stenosis of bilateral carotid arteries
CPT/HCPCS: 99204; G2211

== ENCOUNTER → 2025-05-01 10:47 | Outpatient (BNVA) | payer MEDICARE, OTHER, SELFPAY | PROVIDERS: PCP Family Medicine; Visit Provider Surgery Vascular Surgery | DX: I70.1 Atherosclerosis of renal artery (principal); I73.9 Peripheral vascular disease, unspecified; I65.23 Occlusion and stenosis of bilateral carotid arteries; I10 Essential (primary) hypertension; R42 Dizziness and giddiness; H93.19 Tinnitus, unspecified ear; I25.2 Old myocardial infarction; Z87.891 Personal history of nicotine dependence; Z79.899 Other long term (current) drug therapy | CPT/HCPCS: 99202; 99212 ==

== ENCOUNTER 2025-05-01 12:41 | Outpatient (AMB) | payer MEDICARE, OTHER, SELFPAY ==
[2025-05-01 12:55] VITALS: BP 120/68; PULSE 55; O2SAT 96
--- NOTE | 2025-05-01 12:55 | A.OFFVIS_ITS ---
Vital Signs 05/01/25 12:55 Height 5 ft 10 in Weight 16 lb BMI 2.3 BP 120/68 Blood Pressure Location Rt brachial Position Sitting Pulse 55 Pulse Source Pulse Oximeter Pulse Oximetry (%) 96 Oxygen Delivery Method Room Air Intake Visit Reasons: follow up Meniere's disease Interactive Video Technician Required: No Accompanied by: Self / Same As Patient Allergies cat dander Allergy (Mild, Verified 05/01/25 12:55) bumps on skin, eyes and nose closes Latex, Natural Rubber Allergy (Mild, Verified 05/01/25 12:55) itchy skin No Known Drug Allergies Allergy (Unknown, Verified 05/01/25 12:55) Unknown pollen Allergy (Mild, Uncoded 03/11/25 12:18) Unknown isosorbide Adverse Reaction (Uncoded 03/11/25 12:18) itchy watery eyes HPI Comments Details: 74y/o male comes for follow up of dizziness.he is seeing for carotid and renal artery stenosis . he is doing cardiac rehab so did not do vestibular rehab. He has audiology eval and was told he needs hearing aides. History from Oct 2024 visit-He reports dizziness for 4-5 years atleast.He has a mild dizziness all the time but when he looks up or lifts his head up his dizziness worsens.He also has episodes or worsening when he drives. He describes the dizziness as not felling right in space.Last year he had a severe episode and went to [facility].His BP was high and he also had headaches. MRI brain was nonfocal . He denies nausea or vomiting. During his severe episode he also had headaches and nausea. He has chronic tinnitus and hearing issues. He reports h/o multiple head injuries - his last was years ago when he was cutting a tree , snapped and hit him in his face. He was seen by ENT - did not think it was Menieres- but recommended Vestibular. [facility] Medical History Hearing loss Vertigo Hypertension CAD (coronary artery disease) History of [place] (myocardial infarction) No pertinent past medical history Surgical History History of cardiac cath Stented coronary artery H/O removal of cyst H/O shoulder surgery Hx of hernia repair Status post surgical removal of neoplasm of skin Hx of appendectomy Hx of cataract surgery Family History Father Heart problem Mother Heart problem Sister Mini stroke Social History Household Members: Family Both parents involved: No Caregiver staying overnight: No Housing: House Are you a primary behavioral health care manager to a significant other at home: No Do you presently have visiting nurse or other home services: No 75 years or older and lives alone: No Alcohol intake: current Alcohol intake frequency: a few times a month Alcohol type: beer and wine Patient Tobacco Use Status: Former Tobacco user Tobacco use type: Cigar e-Cigarette/Vaping Use: Never Used service: No Current occupational status: employed 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 [employer] Current occupational exposures/hazards: No Cognitive needs: No Hearing needs: No Vision needs: Yes Physical Exam Vital Signs: Last Vital Signs Pulse 55 05/01/25 12:55 BP 120/68 05/01/25 12:55 Pulse Ox 96 05/01/25 12:55 Oxygen Delivery Method Room Air 05/01/25 12:55 BMI result Body Mass Index 2.3 Const Orientation/consciousness: patient oriented x3 Neuro Other: Right Pupil irregular due to injury form childhood left pupil - 3 mm Mild stoop General: patient oriented x3, tone normal, moves all extremities, no focal motor deficits and CN's II-XI intact bilaterally Cranial nerves: Yes Facial sensation intact/muscles of mastication intact, Yes Bilaterally intact EOM present, Yes Normal facial strength present and Yes Midline tongue present Cognition (Neuro): normal cognition Gait exam (Neuro): Normal gait present Motor exam (neuro): 5/5 motor strength present throughout and Normal motor muscle tone present throughout Assessment & Plan Assessment & Plan (1) Vertigo: Comment: ? BPV ? Meniers Code(s): R42 - Dizziness and giddiness Category: Medical (2) Tinnitus: Code(s): H93.19 - Tinnitus, unspecified ear Category: Medical Qualifiers: Laterality: unspecified laterality Qualified Code(s): H93.19 - Tinnitus, unspecified ear Plan Reviewed MRI brain - nonfocal Suggested vestibular rehab after cardiac rehab Hearing aides F/u f/u as needed Coding Level of Care Code Est Pt Level 4 (44637) Diagnoses Vertigo R42 Tinnitus, unspecified laterality H93.19 Laterality: unspecified laterality
== END 2025-05-01 13:17 | disposition home or self-care (01) ==
LOC: HO.HSMS 12:42
PROVIDERS: PCP Family Medicine; Visit Provider Psychiatry & Neurology Neurology
DX: R42 Dizziness and giddiness (principal); H93.19 Tinnitus, unspecified ear
CPT/HCPCS: 99214

== ENCOUNTER 2025-05-05 13:25 | Outpatient (REF) | payer MEDICARE, OTHER, SELFPAY ==
--- OUTSIDE RECORDS SUMMARY | 2025-05-05 14:07 | XMS_ITS | Clinical Summary ---
Author Organization [facility] Address [address] [place] [address] Care Team Providers Care Optical Fabricator Name Role Phone Hector Colindres MD Primary Care Provider +1- [phone] Allergies Active Allergy Reactions Criticality Noted Date [...] topic Insurance MEDICARE PART A & B [facility] Care Teams Optical Fabricator Relationship Specialty Start Date End Date Hector Colindres MD [address] [place] [address] [place] [address] PCP - General Family Medicine 10/15/24
[2025-05-05 15:13] LABS: Blood Urea Nitrogen 20 mg/dL (9-16); Estimated Glomerular Filt Rate > 60
== END 2025-05-05 13:26 | disposition home or self-care (01) ==
LOC: HO.WFDLDS 13:25
PROVIDERS: Visit Provider Surgery Vascular Surgery
DX: I70.1 Atherosclerosis of renal artery (principal)
CPT/HCPCS: 36415; 82565; 84520

== ENCOUNTER 2025-05-30 13:08 | Outpatient (REF) | payer MEDICARE, OTHER, SELFPAY ==
--- NOTE | ~2025-05-30 | CT_ITS ---
EXAMINATION: CT ANGIOGRAM ABDOMEN CLINICAL INFORMATION: I70.1 - Atherosclerosis of renal artery Eval renal artery stenosis COMPARISON: Ultrasound of the renal artery on April 03, 2025 describes possible left renal artery stenosis TECHNIQUE: Multiple axial images were obtained through the abdomen following the administration of 80 mL Omnipaque 350 intravenous contrast. Images were reviewed on a dedicated 3-D workstation. This CT examination was performed using dose optimization techniques as appropriate, variously including the following: *Automated exposure control *Adjustment of mA and/or kV according to patient size (this includes techniques or standardized protocols for targeted exams where dose is matched to indication/reason for exam; i.e. extremities or head) *Use of iterative reconstruction technique FINDINGS: Vascular: Aorta: Moderate/severe atherosclerotic disease with calcifications. No aneurysmal dilatation, stenosis or evidence of dissection. Celiac axis: Patent, without focal stenosis. Superior mesenteric artery: Patent, without focal stenosis. Right renal artery: Mild atherosclerotic disease, without focal stenosis. Left renal artery: Mild atherosclerotic disease, without focal stenosis. Inferior mesenteric artery: Patent. Right common iliac artery: Moderate degree of atherosclerotic disease with calcifications. Focal moderate degree of stenosis in the proximal segment, with approximately 0.4 cm of patent lumen (5:50). Left common iliac artery: Moderate degree of atherosclerotic disease with calcifications. Mild diffuse stenosis. Nonvascular: Lower chest: No focal lung consolidation. No pleural effusion. Liver: Unremarkable. Biliary: Normal gallbladder. No biliary ductal dilatation. Spleen: Borderline enlarged measuring 12.5 cm. Pancreas: Unremarkable. Adrenal glands: Nodular thickening in the right adrenal gland measuring approximately 1.0 cm. No left adrenal nodule. Kidneys and ureters: Stable right renal cysts. No hydronephrosis on either side. GI tract: Stomach is decompressed. No bowel distention. Lymph nodes: No bulky lymphadenopathy. Bones: Stable anterior wedge deformity of L1 vertebral body. CT/CT angio abdomen IMPRESSION: 1. Moderate/severe atherosclerotic disease with calcifications. No focal stenosis in the right or left renal artery. Focal moderate degree of the stenosis of the right common iliac artery. 2. Additional findings as above. Electronically signed by: Stone Arambula MD 05/30/2025 03:13 PM EDT
--- OUTSIDE RECORDS SUMMARY | 2025-05-30 13:11 | XMS_ITS | Clinical Summary ---
Author Organization [facility] Address [address] [place] [address] Care Team Providers Care System Admin Name Role Phone Hector Colindres MD Primary Care Provider +1- [phone] Allergies Active Allergy Reactions Criticality Noted Date [...] topic Insurance MEDICARE PART A & B [facility] Care Teams System Admin Relationship Specialty Start Date End Date Hector Colindres MD [address] [place] [address] [place] [address] PCP - General Family Medicine 10/15/24
[2025-05-30] MEDS: iohexoL 350 MG/ML 100 ML INFUS..BTL IV (13:55)
== END 2025-05-30 13:09 | disposition home or self-care (01) ==
LOC: HO.CT 13:08
PROVIDERS: PCP Family Medicine; Visit Provider Surgery Vascular Surgery
DX: I70.1 Atherosclerosis of renal artery (principal)
CPT/HCPCS: 74175; Q9967

== ENCOUNTER → 2025-05-30 13:10 | Outpatient (BNV) | payer MEDICARE, OTHER, SELFPAY | PROVIDERS: PCP Family Medicine; Visit Provider Radiology Body Imaging | DX: I70.1 Atherosclerosis of renal artery (principal) | CPT/HCPCS: 74175 ==

== ENCOUNTER 2025-06-24 12:44 | Outpatient (AMB) | payer MEDICARE, OTHER, SELFPAY ==
--- NOTE | 2025-06-24 13:08 | A.OFFVIS_ITS ---
Intake Visit Reasons: follow up s/p CTA Abd Intake Note: Patient presents for follow up CTA ABD. Patient states he has bilateral leg pain at night. Patient also states his ankles swell at times. Accompanied by: Self / Same As Patient Allergies cat dander Allergy (Mild, Verified 06/24/25 13:10) bumps on skin, eyes and nose closes Latex, Natural Rubber Allergy (Mild, Verified 06/24/25 13:10) itchy skin No Known Drug Allergies Allergy (Unknown, Verified 06/24/25 13:10) Unknown pollen Allergy (Mild, Uncoded 03/11/25 12:18) Unknown isosorbide Adverse Reaction (Uncoded 03/11/25 12:18) itchy watery eyes HPI HPI follow up s/p CTA Abd: Details: The patient is a 74-year-old male presenting for follow-up on renal artery stenosis and evaluation of hypertension. A recent CT scan showed no significant renal artery stenosis, despite prior ultrasound findings suggesting possible stenosis on the left side. The patient has experienced sporadic, severe spikes in blood pressure, although these episodes are infrequent. The patient reports leg fatigue and cramps, particularly during walking or prolonged sitting, such as driving. He experiences cramps in the buttocks and legs, which may be related to nerve issues, although he denies significant back pain. The patient can sometimes walk a block before experiencing cramps, but at other times, he experiences cramps after only a few steps or when climbing stairs. [facility] Medical History Hearing loss Vertigo Hypertension CAD (coronary artery disease) History of [place] (myocardial infarction) No pertinent past medical history Surgical History History of cardiac cath Stented coronary artery H/O removal of cyst H/O shoulder surgery Hx of hernia repair Status post surgical removal of neoplasm of skin Hx of appendectomy Hx of cataract surgery Family History Father Heart problem Mother Heart problem Sister Mini stroke Social History Household Members: Family Both parents involved: No Caregiver staying overnight: No Housing: House Are you a primary health care facility administrator to a significant other at home: No Do you presently have visiting nurse or other home services: No 75 years or older and lives alone: No Alcohol intake: current Alcohol intake frequency: a few times a month Alcohol type: beer and wine Patient Tobacco Use Status: Former Tobacco user Tobacco use type: Cigar e-Cigarette/Vaping Use: Never Used service: No Current occupational status: employed 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 [employer] Current occupational exposures/hazards: No Cognitive needs: No Hearing needs: No Vision needs: Yes Review of Systems Const All systems reviewed & are unremarkable except as noted in HPI and below Reports no additional complaints ENT Reports Normal hearing present Card Denies chest pain, Denies chest pain at rest, Denies chest pain with activity and Denies pedal edema Resp Denies cough GI Denies abdominal pain Musc Denies abnormal gait, Denies muscle cramps and Denies radiating pain into limb Skin/Breast Denies skin ulcer and Denies wounds Neuro Reports Normal hearing present and Denies abnormal gait Psych Reports no additional complaints Physical Exam Const General: cooperative, healthy appearing and comfortable Orientation/consciousness: oriented to person, oriented to place and oriented to time HEENT Head: Yes normal to inspection Neck Neck: Yes normal visual inspection Carotids: no bruits Chest Chest palpation & inspection: normal inspection of the chest Resp Effort & Inspection: normal respiratory effort and able to speak in complete sentences Auscultation: clear to auscultation bilaterally, no crackles, no rales, no rhonchi and no wheezes Cardio Rate: regular rate Rhythm: regular rhythm Heart sounds: S1 normal heart sound present and S2 normal heart sound present Bruits: no carotid bruits Peripheral pulses: Peripheral pulses 2+ throughout GI Inspection: Yes normal to inspection Skin Wounds: no wounds Hair: normal Neuro General: oriented to person, oriented to place and oriented to time Cranial nerves: Yes CN's II-XII intact bilaterally and Yes Normal hearing present Cognition (Neuro): normal cognition Motor exam (neuro): 5/5 motor strength present throughout Extrem Other: venous exam: No significant superficial varicosities or spider telangiectasias, minimal edema General: No clubbing, No cyanosis and No edema Psych Appearance: grossly normal Mental Status: mental status grossly normal Speech and movement: Normal speech and movement present Results Reviewed Results Reviewed: CT angiogram dated 05/30/2025 demonstrated no significant renal artery stenosis Assessment & Plan Assessment & Plan (1) Renal artery stenosis: Code(s): I70.1 - Atherosclerosis of renal artery Category: Medical Plan: I discussed with the patient that the CT scan showed no significant renal artery stenosis, which is reassuring given previous ultrasound findings. We talked about the need to manage his hypertension due to sporadic severe spikes in blood pressure. I recommended an ultrasound of the legs and carotids to evaluate blood flow and address his symptoms of leg cramps and fatigue. (2) Peripheral vascular disease: Code(s): I73.9 - Peripheral vascular disease, unspecified Category: Medical Plan: Patient does demonstrate evidence of claudication. We will get noninvasive testing regarding this. He will follow up with us after ultrasound. Thank you for allowing us to assist in his care. (3) Bilateral carotid artery stenosis: Code(s): I65.23 - Occlusion and stenosis of bilateral carotid arteries Category: Medical Plan: Concern of right carotid bruit. We will get carotid noninvasive testing to re- evaluate this. Last carotid test was a proximally a year ago was within normal limits. We did discuss routine risk factor modification and he will follow up with us after testing. Thank you for allowing us to assist in his care. Plan Patient was informed and verbally consented to the use of an ambient scribe for clinic note documentation during this visit. Orders: Orders US arterial duplex LE BI Today I73.9 - Peripheral vascular disease, unspecified US carotid duplex BI Today I65.23 - Occlusion and stenosis of bilateral carotid arteries Patient Instructions: - Follow up with Dr. Macario for heart evaluation next week. - Schedule and complete the ultrasound of the legs and carotids as discussed. - Monitor blood pressure regularly and report any severe spikes. Coding Level of Care Code Est Pt Level 4 (74739) Complex EM visit Add On G2211 Diagnoses Renal artery stenosis I70.1 Peripheral vascular disease I73.9 Bilateral carotid artery stenosis I65.23
--- OUTSIDE RECORDS SUMMARY | 2025-06-24 16:43 | XMS_ITS | Clinical Summary ---
Author Organization Formerly [facility] Address [address] [place] [address] Care Team Providers Care Director Commercial Sales Name Role Phone Hector Colindres MD Primary Care Provider [phone] Allergies Active Allergy Reactions Criticality Noted Date [...] Health Maintenance Due Date Last Done Comments Advance Care Planning 1950 Hepatitis C Virus Screening 1950 DTaP/Tdap/Td Vaccines (1 - Tdap) 1971 Mammogram 1992 Colonoscopy 1997 Pneumococcal Vaccines 50+ (1 of 1 - PCV) 2002 Zoster (Shingles) Vaccine (1 of 2) 2002 RSV Vaccine 60 years and old er and Patients (1 - Risk 60-74 years 1-dose series) 2012 DXA Bone Density (Females,Ag es 65 and older) 2017 Influenza Vaccine 05/09/2025 COVID-19 Vaccine (1 - 2023-2 5 season) 2025 Hepatitis B Vaccines Aged Out No long er eligible based on patient's age to complete this topic Insurance MEDICARE PART A & B [facility] Care Teams Director Commercial Sales Relationship Specialty Start Date End Date Hector Colindres MD [address] [place] [address] [place] [id number] PCP - General Family Medicine 10/15/24
== END 2025-06-24 13:46 | disposition home or self-care (01) ==
LOC: HO.HVS 12:46
PROVIDERS: PCP Family Medicine; Visit Provider Surgery Vascular Surgery
DX: I70.1 Atherosclerosis of renal artery (principal); I73.9 Peripheral vascular disease, unspecified; I65.23 Occlusion and stenosis of bilateral carotid arteries
CPT/HCPCS: 99214; G2211

== ENCOUNTER → 2025-06-24 12:44 | Outpatient (BNVA) | payer MEDICARE, OTHER, SELFPAY | PROVIDERS: PCP Family Medicine; Visit Provider Surgery Vascular Surgery | DX: I70.1 Atherosclerosis of renal artery (principal); I73.9 Peripheral vascular disease, unspecified; R09.89 Other specified symptoms and signs involving the circulatory and respiratory systems | CPT/HCPCS: 99212 ==

== ENCOUNTER 2025-06-30 14:19 | Outpatient (REF) | payer MEDICARE, OTHER, SELFPAY ==
[2025-06-30 18:51] LABS: Prostate Specific Antigen 1.11 ng/mL (<0.05-4.0)
[2025-07-05 20:33] LABS: Testosterone, Free 49.4 pg/mL (30.0-135.0)
== END 2025-06-30 14:20 | disposition home or self-care (01) ==
LOC: HO.WFDLDS 14:19
PROVIDERS: Visit Provider Nurse Practitioner Family
DX: Z12.5 Encounter for screening for malignant neoplasm of prostate (principal); N40.0 Benign prostatic hyperplasia without lower urinary tract symptoms; R68.82 Decreased libido
CPT/HCPCS: 36415; 84153; 84402; 84403

== ENCOUNTER 2025-07-03 12:21 | Outpatient (AMB) | payer MEDICARE, OTHER, SELFPAY ==
[2025-07-03 12:53] VITALS: BP 120/62; PULSE 61; BMI 23.9
--- NOTE | 2025-07-03 12:53 | MHC.OFFVIS ---
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 He said he has been very active and has had no recurrent anginal symptoms. However he has not had any significant exertional activity performed. He said he feels really strong. He still gets orthostatic lightheadedness but not as badly. His blood pressure is generally well controlled at home. He has seen vascular surgery for peripheral vascular disease as well as carotid disease and being followed by them. He takes all his medications. Denies any prolonged palpitation irregular heartbeat. No heart failure symptoms. No syncope. [facility] Medical History Hearing loss Vertigo Hypertension CAD (coronary artery disease) History of [place] (myocardial infarction) No pertinent past medical history Surgical History History of cardiac cath Stented coronary artery H/O removal of cyst H/O shoulder surgery Hx of hernia repair Status post surgical removal of neoplasm of skin Hx of appendectomy Hx of cataract surgery Family History Father Heart problem Mother Heart problem Sister Mini stroke Social History Household Members: Family Both parents involved: No Caregiver staying overnight: No Housing: House Are you a primary direct care supervisor to a significant other at home: No Do you presently have visiting nurse or other home services: No 75 years or older and lives alone: No Alcohol intake: current Alcohol intake frequency: a few times a month Alcohol type: beer and wine Patient Tobacco Use Status: Former Tobacco user Tobacco use type: Cigar e-Cigarette/Vaping Use: Never Used service: No Current occupational status: employed 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 [employer] Current occupational exposures/hazards: No Cognitive needs: No Hearing needs: No Vision needs: Yes Review of Systems Const Denies chills, Denies fatigue, Denies fever(s), Denies frequent falls, Denies weakness, Denies weight gain and Denies weight loss ENT Denies dizziness Card Denies chest pain, Denies leg edema, Denies lightheadedness, Denies palpitations, Denies dyspnea and Denies dyspnea on exertion Resp Denies cough, Denies dyspnea and Denies dyspnea on exertion GI Denies hematochezia Musc Denies abnormal gait, Denies muscle weakness, Denies numbness, Denies radiating pain into limb and Denies tingling Neuro Denies Abnormal speech present, Denies abnormal gait, Denies dizziness, Denies frequent falls, Denies numbness, Denies tingling and Denies weakness Endo Denies fatigue and Denies palpitations Physical Exam Vital Signs: Last Vital Signs Pulse 61 07/03/25 12:53 BP 120/62 07/03/25 12:53 BMI result Body Mass Index 23.9 Const General: cooperative, comfortable, no acute distress, well developed, alert, awake and Physically active Nutritional Appearance: average body habitus and well nourished Orientation/consciousness: patient oriented x3 Limitations: no limitations HEENT Head: Yes normocephalic and Yes atraumatic Neck Neck: Yes trachea midline, Yes supple and Yes no JVD Carotids: no bruits Resp Effort & Inspection: normal respiratory effort Auscultation: clear to auscultation bilaterally Cardio Jugular venous distension: no JVD Palpation: normal PMI Rate: regular rate Rhythm: regular rhythm Heart sounds: S1 normal heart sound present, S2 normal heart sound present, no click, no gallops, no murmurs and no rubs GI Auscultation: normal bowel sounds Skin General skin exam: no rashes or lesions noted Neuro General: patient oriented x3 and no focal motor deficits Speech: No Abnormal speech present Extrem General: Yes no clubbing, cyanosis or edema Psych Appearance: grossly normal Assessment & Plan Assessment & Plan (1) CAD (coronary artery disease): Code(s): I25.10 - Atherosclerotic heart disease of [place] coronary artery without angina pectoris Category: Medical Qualifiers: Coronary Disease-Associated Artery/Lesion type: unspecified vessel or lesion type [place] vs. transplanted heart: [place] heart Associated angina: unspecified whether angina present Qualified Code(s): I25.10 - Atherosclerotic heart disease of [place] coronary artery without angina pectoris Plan: Diffuse and significant atherosclerotic disease with diffuse coronary disease prior RCA stenting. Currently not having any symptoms of angina on dual antianginal therapy. I have advised him about anginal symptoms and how to avoid especially to avoid sudden strenuous exertion. He can maintain activity level as tolerated. Continue low-dose aspirin therapy for life. Continue dual antianginal therapy with metoprolol and amlodipine which she is tolerating well. Continue high-intensity statin therapy with target goal LDL less than 60 mg/dL. Being followed by vascular surgery. Advised to call me with any new symptoms. 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 (2) Hypertension: Code(s): I10 - Essential (primary) hypertension Category: Medical Qualifiers: Hypertension type: primary hypertension Qualified Code(s): I10 - Essential (primary) hypertension Plan: Hypertension generally well controlled but still continues to have orthostatic lightheadedness most likely due to significant atherosclerotic disease. Does not have significant renal artery stenosis. He has been followed by vascular surgery. Advised to maintain adequate hydration. Orthostatic precautions were discussed. He understands agrees. Low-salt diet was discussed. Stress mitigation strategies were discussed. Will follow up in the clinic in 1 year's time, sooner PRN. Thank you for allowing me to partake in his care Coding Level of Care Code Est Pt Level 4 (46616) Complex EM visit Add On G2211 Diagnoses Coronary artery disease involving [place] heart, unspecified vessel or lesion type, unspecified whether angina present I25.10 Coronary Disease-Associated Artery/Lesion type: unspecified vessel or lesion type [place] vs. transplanted heart: [place] heart Associated angina: unspecified whether angina present Primary hypertension I10 Hypertension type: primary hypertension
--- OUTSIDE RECORDS SUMMARY | 2025-07-03 17:14 | XMS_ITS | Clinical Summary ---
Author Organization Formerly [facility] Address [address] [place] [address] Care Team Providers Care Post Doctoral Researcher Name Role Phone Hector Colindres MD Primary Care Provider [phone]- [phone] Allergies Active Allergy Reactions Criticality Noted Date [...] topic Insurance MEDICARE PART A & B [facility] Care Teams Post Doctoral Researcher Relationship Specialty Start Date End Date Hector Colindres MD [address] [place] [address] [place] [phone] PCP - General Family Medicine 10/15/24
== END 2025-07-03 13:08 | disposition home or self-care (01) ==
LOC: HO.HCS 12:22
PROVIDERS: PCP Family Medicine; Visit Provider Internal Medicine Cardiovascular Disease
DX: I25.10 Atherosclerotic heart disease of native coronary artery without angina pectoris (principal); I10 Essential (primary) hypertension
CPT/HCPCS: 99214; G2211

== ENCOUNTER → 2025-07-03 12:21 | Outpatient (BNVA) | payer MEDICARE, OTHER, SELFPAY | PROVIDERS: PCP Family Medicine; Visit Provider Internal Medicine Cardiovascular Disease | DX: I25.10 Atherosclerotic heart disease of native coronary artery without angina pectoris (principal); I10 Essential (primary) hypertension; Z87.891 Personal history of nicotine dependence; Z79.82 Long term (current) use of aspirin | CPT/HCPCS: 99212 ==

== ENCOUNTER 2025-07-18 13:05 | Outpatient (AMB) | payer MEDICARE, OTHER, SELFPAY ==
--- NOTE | 2025-07-18 13:23 | MHC.PC.OV ---
Vital Signs 07/18/25 13:29 Height 5 ft 10 in Weight 170 lb BMI 24.4 BP 114/60 Blood Pressure Location Rt brachial Position Sitting Respiration 12 Pulse 60 Pulse Source Pulse Oximeter Temp 97.7 F Temp Source Temporal Artery Scan Pulse Oximetry (%) 96 Oxygen Delivery Method Room Air Intake Visit Reasons: f/u chronic conditions Intake Note: Abdirahman presents in the office today to follow up to diabetes and other chronic conditions. Allergies cat dander Allergy (Mild, Verified 07/18/25 13:27) bumps on skin, eyes and nose closes Latex, Natural Rubber Allergy (Mild, Verified 07/18/25 13:27) itchy skin No Known Drug Allergies Allergy (Unknown, Verified 07/18/25 13:27) Unknown pollen Allergy (Mild, Uncoded 07/18/25 13:27) Unknown isosorbide Adverse Reaction (Uncoded 07/18/25 13:27) itchy watery eyes Medication List - Last Reconciled 07/18/25 by Hector Colnidres MD amlodipine 5 mg (2 x 2.5 mg) PO DAILY aspirin (Adult Aspirin Regimen) 81 mg PO DAILY atorvastatin 40 mg PO BEDTIME 90 days garlic 1,000 mg PO DAILY magnesium 200 mg PO DAILY mecobalamin (vitamin B12) 1,000 mcg sublingual DAILY metoprolol succinate ER 50 mg PO DAILY 90 days pantoprazole 40 mg PO DAILY 30 days tadalafil (Cialis) 5 mg PO DAILY 90 days thiamine HCl (vitamin B1) 100 mg PO DAILY vitamin K2 100 mcg PO DAILY Tobacco use date assessed: 07/18/25 Last assessed Fall Risk: 07/18/25 Dental Screening Dental Screen Date: 07/18/25 Did you have a dental visit in the last 12 months?: Yes Did you have a dental problem in the last 6 months where you did not have access to dental care?: No Was dental information given to patient?: Patient has dentist HPI f/u chronic conditions HPI Details 74 y/o male presents to f/u chronic conditions. Last saw Cardiology 07/03/25 for CAD, HTN. He continues to f/u with them - he continues his low dose aspirin therapy, metoprolol, amlodipine and high intensity statins. Blood pressure today 114/60, 60p. He is on amlodipine 5mg, metoprolol 50mg daily. Recent f/u with vascular. CT showed no significant al artery stenosis, which was reassuring given previous ultrasound findings. They had recommended ultrasound of legs/carotids to evaluate blood flow and address symptoms of leg cramps and fatigue. Continues to f/u with them. A1c today 07/18/25 5.5%. HPI Comments History of Present Illness Details Documentation assistance for Hector Colindres MD, was provided by Hunter Kenny,? Atmospheric Drier Tender on 07/18/2025 at 1:59 PM EST. I, Dr. Colindres, have read, observed, and verified documentation. [facility] Medical History Hearing loss Vertigo Hypertension CAD (coronary artery disease) History of [place] (myocardial infarction) No pertinent past medical history Surgical History History of cardiac cath Stented coronary artery H/O removal of cyst H/O shoulder surgery Hx of hernia repair Status post surgical removal of neoplasm of skin Hx of appendectomy Hx of cataract surgery Family History Father Heart problem Mother Heart problem Sister Mini stroke Social History (Updated 07/18/25 @ 13:29 by Dottie Powell CMA) Household Members: Family Both parents involved: No Caregiver staying overnight: No Housing: House Are you a primary wound care nurse to a significant other at home: No Do you presently have visiting nurse or other home services: No 75 years or older and lives alone: No Alcohol intake: current Alcohol intake frequency: a few times a month Alcohol type: beer and wine Patient Tobacco Use Status: Former Tobacco user Tobacco use type: Cigar e-Cigarette/Vaping Use: Never Used Second Hand Smoke Exposure: No Use of substances other than those prescribed or required for medical reasons: No service: No Current occupational status: employed 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 [employer] Current occupational exposures/hazards: No Cognitive needs: No Hearing needs: No Vision needs: Yes Questionnaire Thrive Questionnaire Date Thrive assessed: 01/03/25 I am a: Patient What is your living situation today?: I have a steady place to live Within the past 12 months, did the food you bought not last and you didn't have the money to get more?: Never true Within the past 12 months, did you worry whether your food would run out before you got money to buy more?: Never true Do you have trouble paying for medicines?: No Do you have trouble getting transportation to medical appointments?: No Do you have trouble paying your heating and electricity bill?: No Do you have trouble taking care of your child, family member or friend?: No Do you have trouble with day-to-day activities such as bathing, preparing meals, shopping, managing finances, etc.?: No Are you currently unemployed and looking for a job?: No Are you interested in more education?: No Please select the resources that you would like help with: None Currently or been in a relationship where the following occur: No concerns reported THRIVE Score: 0 BUDDY-7 AMB Questionnaire BUDDY-7 Date BUDDY - 7 assessed: 01/03/25 Source: Developed by Drs. Henry Tony, Angie Funes, Lito Jean-Baptiste and colleagues, with an educational kinza from [employer]. Review of Systems Const Denies chills, Denies fatigue, Denies fever(s), Denies headache(s) and Denies weakness ENT Denies dizziness and Denies headache(s) Card Denies dyspnea Resp Denies cough, Denies dyspnea, Denies wheezing and Denies other (shortness of breath) Musc Denies numbness and Denies tingling Neuro Denies dizziness, Denies headache(s), Denies numbness, Denies tingling and Denies weakness Psych Denies anxiety and Denies depression Endo Denies fatigue Aller/Immun Denies wheezing Physical exam (Primary Care) Vital Signs: Last Vital Signs Temp 97.7 F 07/18/25 13:29 Pulse 60 07/18/25 13:29 Resp 12 07/18/25 13:29 BP 114/60 07/18/25 13:29 Pulse Ox 96 07/18/25 13:29 Oxygen Delivery Method Room Air 07/18/25 13:29 BMI result Body Mass Index 24.4 Tobacco/Smoking Status: Tobacco use Status Tobacco use date assessed 07/18/25 07/18/25 13:32 Patient Tobacco Use Status Former Tobacco user 07/18/25 13:29 Tobacco use type Cigar 07/18/25 13:29 e-Cigarette/Vaping Use Never Used 07/18/25 13:29 Thrive Assessment: Date of Thrive Assessment Date Thrive assessed 01/03/25 07/18/25 13:25 Currently or been in a relationship where the following occur: No concerns reported Const General: well developed; No acute distress Nutritional Appearance: well nourished Orientation/consciousness: patient oriented x3 HENMT Head: Yes normocephalic and Yes atraumatic Eyes General: appearance normal, both eyes and all related structures Pupils: Equal, round and reactive pupils present EOM: EOMs intact bilaterally Resp Effort & Inspection: normal respiratory effort Neuro General: patient oriented x3 and gait normal Cranial nerves: Yes Equal, round and reactive pupils present Psych Affect: normal affect Results AMB Hemoglobin A1c AMB Hemoglobin A1c 5.5 % Last Edit by Dottie Powell CMA on 07/18/25 13:56 Results Reviewed Results Reviewed: Laboratory Last Values Hgb A1c (Clinic) 5.5 % (4.0-6.0) 07/18/25 13:34 Coding Level of Care Code Est Pt Level 4 (97628) Diagnoses Primary hypertension I10 Hypertension type: primary hypertension Pre-diabetes R73.03 Coronary artery disease involving [place] heart, unspecified vessel or lesion type, unspecified whether angina present I25.10 Associated angina: unspecified whether angina present Coronary Disease-Associated Artery/Lesion type: unspecified vessel or lesion type [place] vs. transplanted heart: standing rock heart Peripheral vascular disease I73.9 Leg cramp R25.2 Hyperlipidemia E78.5 Assessment & Plan Assessment & Plan (1) Hypertension: Code(s): I10 - Essential (primary) hypertension Category: Medical Qualifiers: Hypertension type: primary hypertension Qualified Code(s): I10 - Essential (primary) hypertension Plan: Blood pressure is well controlled. Goal is less than 130/80 No dizziness Continue current medications Ultrasound negative for renal artery stenosis (2) Pre-diabetes: Code(s): R73.03 - Prediabetes Category: Medical Plan: A1c decreased from 6.1% to 5.5% which is upper range of normal Improved. Continue working on diet low in sugars and starches (3) CAD (coronary artery disease): Code(s): I25.10 - Atherosclerotic heart disease of [place] coronary artery without angina pectoris Category: Medical Qualifiers: Associated angina: unspecified whether angina present Coronary Disease-Associated Artery/Lesion type: unspecified vessel or lesion type [place] vs. transplanted heart: standing [place] heart Qualified Code(s): I25.10 - Atherosclerotic heart disease of [place] coronary artery without angina pectoris Plan: Stable. No anginal symptoms. No longer significant orthostasis Continuing aspirin, metoprolol, amlodipine and statin Follow-up with Cardiology as recommended (4) Peripheral vascular disease: Code(s): I73.9 - Peripheral vascular disease, unspecified Category: Medical (5) Leg cramp: Code(s): R25.2 - Cramp and spasm Category: Medical (6) Hyperlipidemia: Code(s): E78.5 - Hyperlipidemia, unspecified Category: Medical Plan Ongoing claudication Followed by Dr. Pal Has ultrasounds of the legs for peripheral vascular disease and also carotid ultrasounds scheduled. Follow-up with Dr. Pal as recommended Orders: Orders AMB Hemoglobin A1c Today R73.03 - Prediabetes
[2025-07-18 13:29] VITALS: BP 114/60; PULSE 60; RESP 12; TEMP 36.5; O2SAT 96; BMI 24.4
== END 2025-07-18 14:15 | disposition home or self-care (01) ==
LOC: HO.HMCFM 13:07
PROVIDERS: PCP Family Medicine; Visit Provider Family Medicine
DX: I10 Essential (primary) hypertension (principal); R73.03 Prediabetes; I25.10 Atherosclerotic heart disease of native coronary artery without angina pectoris; I73.9 Peripheral vascular disease, unspecified; R25.2 Cramp and spasm; E78.5 Hyperlipidemia, unspecified

== ENCOUNTER → 2025-07-18 13:05 | Outpatient (BNVA) | payer MEDICARE, OTHER, SELFPAY | PROVIDERS: PCP Family Medicine; Visit Provider Family Medicine | DX: I10 Essential (primary) hypertension (principal); R73.03 Prediabetes; I25.10 Atherosclerotic heart disease of native coronary artery without angina pectoris; I73.9 Peripheral vascular disease, unspecified; R25.2 Cramp and spasm; E78.5 Hyperlipidemia, unspecified | CPT/HCPCS: 83036; 99212 ==

== ENCOUNTER 2025-08-26 12:47 | Outpatient (REF) | payer MEDICARE, OTHER, SELFPAY ==
--- NOTE | ~2025-08-26 | US_ITS ---
EXAMINATION: Noninvasive assessment of the bilateral lower extremities with ARTERIAL DUPLEX, ANKLE BRACHIAL INDICES (ABIs), and PULSE VOLUME RECORDINGS (PVRs). CLINICAL INFORMATION: I 73.9 TECHNIQUE: Duplex Doppler techniques with waveform analysis and measurement of velocities in the bilateral common femoral, profunda femoris, superficial femoral, popliteal and tibial arteries were performed. Additionally, ankle pulse volume recordings, ankle pressure measurements and ankle brachial indices were obtained of the lower extremity arterial system bilaterally. The study was performed only at rest. COMPARISON: None FINDINGS: DIRECT DUPLEX DOPPLER FINDINGS: RIGHT LEG: Common femoral artery: 139 cm/s, phasicity: Triphasic. Profunda femoris artery: 94 cm/s, phasicity: Biphasic. Spectral broadening. Superficial femoral artery (proximal): 115 cm/s, phasicity: Triphasic. Spectral broadening. Superficial femoral artery (mid): 95 cm/s, phasicity: Triphasic. Superficial femoral artery (distal): 243 cm/s, phasicity: Triphasic. Spectral broadening. Popliteal artery: 130 cm/s, phasicity: Triphasic. Posterior tibial artery: 109 cm/s, phasicity: Monophasic. Spectral broadening. Peroneal artery: 81 cm/s, phasicity: Monophasic. Anterior tibial artery: 26 cm/s, phasicity: Monophasic. Spectral broadening. Dorsalis pedis artery: 16 cm/s, phasicity:Monophasic. Spectral broadening. LEFT LEG: Common femoral artery: 103 cm/s, phasicity: Triphasic. Profunda femoris artery: 118 cm/s, phasicity: Biphasic. Spectral broadening. Superficial femoral artery (proximal): 70 cm/s, phasicity: Biphasic. Spectral broadening. Superficial femoral artery (mid): 56 cm/s, phasicity: Triphasic. Spectral broadening. Superficial femoral artery (distal): 510 cm/s, phasicity: Monophasic. Spectral broadening. Popliteal artery: 63 cm/s, phasicity: Monophasic. Spectral broadening. Posterior tibial artery: 58 cm/s, phasicity: Monophasic. Spectral broadening. Peroneal artery: 44 cm/s, phasicity: Monophasic. Anterior tibial artery: 16 cm/s, phasicity: Biphasic. Spectral broadening. Dorsalis pedis artery: 9 cm/s, phasicity: Monophasic. Spectral broadening. BRACHIAL PRESSURES: Right: 119 Left: 140 ANKLE PRESSURES: Right: PT 135, DP 140 Left: PT 112, DP 125 ANKLE-BRACHIAL INDEX: Right: 1.00 Left: 0.89 ANKLE PVR WAVEFORMS: Right: Abnormal Left: Abnormal US/US arterial duplex BI w/ NBA IMPRESSION: Right leg: Hemodynamically significant stenosis at the distal superficial femoral artery. Severe inflow disease from the posterior tibialis to the dorsalis pedis arteries. Left leg: Hemodynamically significant stenosis by ultrasound criteria, distal superficial femoral artery. Severe inflow disease from the popliteal to the dorsalis pedis arteries. NBA Reference: - >1.4 = calcified vessels - 0.9 - 1.4 = normal - no significant arterial disease - 0.7 - 0.89 = mild peripheral arterial disease - 0.51 - 0.69 = moderate peripheral arterial disease - 0.50 = severe peripheral arterial disease - < .30 = critical arterial disease Electronically signed by: Kailash Patel MD 08/26/2025 03:38 PM EST
--- NOTE | ~2025-08-26 | US_ITS ---
EXAMINATION: US EXTRACRANIAL CAROTID DUPLEX, BILATERAL CLINICAL INFORMATION: Former tobacco use, hypertension, myocardial infarction COMPARISON: 05/14/2024 TECHNIQUE: Real-time ultrasound and Doppler techniques (integrating B-mode 2-D vascular images, Doppler spectral analysis and color-flow Doppler imaging) were utilized to interrogate the extracranial carotid arteries, the vertebral arteries and proximal subclavian arteries bilaterally. The degree of stenosis is determined by criteria similar to NASCET. FINDINGS: Right Side: 1. There is minimal atherosclerotic plaque seen in the bifurcation/proximal ICA region. 2. The common carotid artery PSV proximally is 85 cm/s and distally 73 cm/s. 3. The proximal internal carotid artery velocities are 68 cm/s systolic and 21 cm/s diastolic. 4. The proximal external carotid artery PSV is 131 cm/s. 5. The vertebral artery shows antegrade flow. 6. The subclavian artery waveforms are triphasic. ICA/CCA ratio 0.8 Left Side: 1. There is mild atherosclerotic plaque seen in the bifurcation/proximal ICA region. 2. The common carotid artery PSV proximally is 77 cm/s and distally 78 cm/s. 3. The proximal internal carotid artery velocities are 78 cm/s systolic and 25 cm/s diastolic. 4. The proximal external carotid artery PSV is 119 cm/s. 5. The vertebral artery shows antegrade flow. 6. The subclavian artery waveforms are triphasic. ICA/CCA ratio 1.0 US/US carotid duplex BI IMPRESSION: 1. RIGHT: No hemodynamically significant stenosis. 2. LEFT: No hemodynamically significant stenosis. Electronically signed by: Johnnie Givens MD 08/26/2025 02:51 PM EST
--- OUTSIDE RECORDS SUMMARY | 2025-08-27 04:09 | XMS_ITS | Clinical Summary ---
Author Organization [facility] Address [address] [place] [address] Care Team Providers Care Gr[employer] 7 And 8 Teacher Name Role Phone Hector Colindres MD Primary Care Provider [phone] Allergies Active Allergy Reactions Criticality Noted Date [...] 50+ (1 of 1 - PCV) 2002 RSV Vaccine 50 years and old er and Patients (1 - Risk 50-74 years 1-dose series) 2002 Zoster (Shingles) Vaccine (1 of 2) 2002 DXA Bone Density (Females,Ag es 65 and older) 2017 Influenza Vaccine 05/09/2025 COVID-19 Vaccine (1 - 2023-2 5 season) 2025 Hepatitis B Vaccines Aged Out No long er eligible based on patient's age to complete this topic Insurance MEDICARE PART A & B [facility] Care Teams Grades 7 And 8 Teacher Relationship Specialty Start Date End Date Hector Colindres MD [address] [place] [address] [place] [id number] PCP - General Family Medicine 10/15/24
== END 2025-08-26 12:48 | disposition home or self-care (01) ==
LOC: HO.US 12:47
PROVIDERS: PCP Family Medicine; Visit Provider Surgery Vascular Surgery
DX: I65.23 Occlusion and stenosis of bilateral carotid arteries (principal); I73.9 Peripheral vascular disease, unspecified
CPT/HCPCS: 93880; 93922; 93925

== ENCOUNTER → 2025-08-26 12:49 | Outpatient (BNV) | payer MEDICARE, OTHER, SELFPAY | PROVIDERS: PCP Family Medicine; Visit Provider Radiology Diagnostic Radiology | DX: I70.223 Atherosclerosis of native arteries of extremities with rest pain, bilateral legs (principal); I10 Essential (primary) hypertension | CPT/HCPCS: 93922; 93925 ==

== ENCOUNTER 2025-09-02 13:11 | Outpatient (AMB) | payer MEDICARE, OTHER, SELFPAY ==
--- NOTE | 2025-09-02 13:33 | MHC.OFFVIS ---
Intake Visit Reasons: follow up Carotid/Arterial US 08/26/25 Intake Note: Patient presents for carotid & arterial US follow up. No complaints. Accompanied by: Self / Same As Patient Allergies cat dander Allergy (Mild, Verified 09/02/25 13:34) bumps on skin, eyes and nose closes Latex, Natural Rubber Allergy (Mild, Verified 09/02/25 13:34) itchy skin No Known Drug Allergies Allergy (Unknown, Verified 09/02/25 13:34) Unknown pollen Allergy (Mild, Uncoded 07/18/25 13:27) Unknown isosorbide Adverse Reaction (Uncoded 07/18/25 13:27) itchy watery eyes HPI HPI follow up Carotid/Arterial US 08/26/25: Details: The patient is a 74 year old individual presenting for follow-up of vascular studies and evaluation of bilateral leg cramps. The patient reports cramping in both thighs and calves, which occurs while lying down and is severe enough to cause awakening from sleep. The cramping improves upon getting out of bed and moving the legs. The patient also notes developing purple, itchy tinsley on the legs that bleed easily with scratching. The patient has also observed some swelling where the sock band creates an indentation. A recent vascular workup, including a carotid ultrasound on August 26 and a renal artery ultrasound followed by a CT scan, were all within normal limits.. Now presents for follow-up with arterial and carotid testing Past medical history is significant for a back fracture in 1983, for which the patient reports no current symptoms. The patient is borderline diabetic and used to smoke cigars occasionally. 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 ON LICENSE OF [facility] Medical History Hearing loss Vertigo Hypertension CAD (coronary artery disease) History of [place] (myocardial infarction) No pertinent past medical history Surgical History History of cardiac cath Stented coronary artery H/O removal of cyst H/O shoulder surgery Hx of hernia repair Status post surgical removal of neoplasm of skin Hx of appendectomy Hx of cataract surgery Family History Father Heart problem Mother Heart problem Sister Mini stroke Social History Household Members: Family Both parents involved: No Caregiver staying overnight: No Housing: House Are you a primary respiratory care faculty to a significant other at home: No Do you presently have visiting nurse or other home services: No 75 years or older and lives alone: No Alcohol intake: current Alcohol intake frequency: a few times a month Alcohol type: beer and wine Patient Tobacco Use Status: Former Tobacco user Tobacco use type: Cigar e-Cigarette/Vaping Use: Never Used Second Hand Smoke Exposure: No service: No Current occupational status: employed 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 [employer] Current occupational exposures/hazards: No Cognitive needs: No Hearing needs: No Vision needs: Yes Review of Systems Const All systems reviewed & are unremarkable except as noted in HPI and below Reports no additional complaints ENT Reports Normal hearing present Card Denies chest pain, Denies chest pain at rest, Denies chest pain with activity and Denies pedal edema Resp Denies cough GI Denies abdominal pain Musc Denies abnormal gait, Denies muscle cramps and Denies radiating pain into limb Skin/Breast Denies skin ulcer and Denies wounds Neuro Reports Normal hearing present and Denies abnormal gait Psych Reports no additional complaints Physical Exam Const General: cooperative, healthy appearing and comfortable Orientation/consciousness: oriented to person, oriented to place and oriented to time HEENT Head: Yes normal to inspection Neck Neck: Yes normal visual inspection Carotids: no bruits Chest Chest palpation & inspection: normal inspection of the chest Resp Effort & Inspection: normal respiratory effort and able to speak in complete sentences Auscultation: clear to auscultation bilaterally, no crackles, no rales, no rhonchi and no wheezes Cardio Rate: regular rate Rhythm: regular rhythm Heart sounds: S1 normal heart sound present and S2 normal heart sound present Bruits: no carotid bruits Peripheral pulses: Peripheral pulses 2+ throughout GI Inspection: Yes normal to inspection Skin Wounds: no wounds Hair: normal Neuro General: oriented to person, oriented to place and oriented to time Cranial nerves: Yes CN's II-XII intact bilaterally and Yes Normal hearing present Cognition (Neuro): normal cognition Motor exam (neuro): 5/5 motor strength present throughout Extrem Other: venous exam: No significant superficial varicosities or spider telangiectasias, minimal edema General: No clubbing, No cyanosis and No edema Psych Appearance: grossly normal Mental Status: mental status grossly normal Speech and movement: Normal speech and movement present Results Reviewed Results Reviewed: Noninvasive arterial testing dated 08/26/2025 demonstrates NBA on the right of 1.0 in on the left of 0.89. Carotid testing dated 08/26/2025 demonstrates no significant stenosis. Assessment & Plan Assessment & Plan (1) Peripheral vascular disease: Code(s): I73.9 - Peripheral vascular disease, unspecified Category: Medical Plan: In short patient has stable claudication. I did review the pathophysiology of peripheral vascular disease with the patient. In addition we did discuss routine conservative measures including a healthy diet and the importance of exercise and ambulation. We did discuss risk factor modification. The patient will continue to to follow-up with surveillance follow-up in approximately 1 year. Thank you for allowing us to participate in this patient's care. If there are any questions or concerns please do not hesitate to contact us. (2) Bilateral carotid artery stenosis: Code(s): I65.23 - Occlusion and stenosis of bilateral carotid arteries Category: Medical Plan: There is no evidence of significant carotid disease. At the current time would continue with conservative management. No further testing required. He will follow up in 1 year's time to review his arterial status. Thank you for allowing us to assist in his care. Thank you for allowing us to assist in his care. Orders: Orders US arterial duplex LE BI Today I73.9 - Peripheral vascular disease, unspecified Coding Level of Care Code Complex visit Add On G2211 Diagnoses Peripheral vascular disease I73.9 Bilateral carotid artery stenosis I65.23
--- OUTSIDE RECORDS SUMMARY | 2025-09-02 16:57 | XMS_ITS | Clinical Summary ---
Author Organization [facility] Address [address] [place] [address] Care Team Providers Care Last Turner Name Role Phone Hector Colindres MD Primary Care Provider [phone] Allergies Active Allergy Reactions Criticality Noted Date [...] topic Insurance MEDICARE PART A & B [facility] Care Teams Last Turner Relationship Specialty Start Date End Date Hector Colindres MD [address] [place] [address] [place] [id number] PCP - General Family Medicine 10/15/24
== END 2025-09-02 14:09 | disposition home or self-care (01) ==
LOC: HO.HVS 13:12
PROVIDERS: PCP Family Medicine; Visit Provider Surgery Vascular Surgery
DX: I73.9 Peripheral vascular disease, unspecified (principal); I65.23 Occlusion and stenosis of bilateral carotid arteries
CPT/HCPCS: 99214; G2211

== ENCOUNTER → 2025-09-02 13:11 | Outpatient (BNVA) | payer MEDICARE, OTHER, SELFPAY | PROVIDERS: PCP Family Medicine; Visit Provider Surgery Vascular Surgery | DX: I73.9 Peripheral vascular disease, unspecified (principal); I65.23 Occlusion and stenosis of bilateral carotid arteries | CPT/HCPCS: 99212 ==

== ENCOUNTER 2025-09-09 13:01 | Outpatient (AMB) | payer MEDICARE, OTHER, SELFPAY ==
--- NOTE | 2025-09-09 13:06 | A.OFFVIS_ITS ---
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 Allergies cat dander Allergy (Mild, Verified 09/09/25 13:40) bumps on skin, eyes and nose closes Latex, Natural Rubber Allergy (Mild, Verified 09/09/25 13:40) itchy skin No Known Drug Allergies Allergy (Unknown, Verified 09/09/25 13:40) Unknown pollen Allergy (Mild, Uncoded 09/09/25 13:40) Unknown isosorbide Adverse Reaction (Uncoded 09/09/25 13:40) itchy watery eyes Medication List - Last Reconciled 09/09/25 by RAMONA Tinsley- amlodipine 5 mg (2 x 2.5 mg) PO DAILY aspirin (Adult Aspirin Regimen) 81 mg PO DAILY atorvastatin 40 mg PO BEDTIME 90 days garlic 1,000 mg PO DAILY magnesium 200 mg PO DAILY mecobalamin (vitamin B12) 1,000 mcg sublingual DAILY metoprolol succinate ER 50 mg PO DAILY 90 days pantoprazole 40 mg PO DAILY 30 days tadalafil (Cialis) 5 mg PO DAILY 90 days thiamine HCl (vitamin B1) 100 mg PO DAILY vitamin K2 100 mcg PO DAILY HPI Comments Details: Abdirahman is a very pleasant 74-year-old male patient of Dr. Colindres. He has a past medical history of coronary artery disease, WI in 2016 with a stent placed, hypertension, peripheral vascular disease, esophageal stricture, and hepatitis. He presents to the office today for follow-up of his ongoing lower urinary tract symptoms, ED, and complex right renal cyst. In discussion with the patient today reports to be doing and feeling well. He reports noting somewhat improvement in nocturia with low-dose Cialis daily. However, he discusses feeling he has had increased episodes of gastric reflux. We did discussed side effects to low-dose Cialis. He has previously trialed Flomax and alfuzosin however felt this was causing him issues with libido, fatigue, and hypotension. We did discuss further treatment options and risks and benefits of these treatment options. He does endorse to drinking and eating prior to bed. We did discuss importance of limiting fluids 2-3 hours prior to bed to decrease episodes of nocturia. 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 He denies urinary urgency, urinary frequency, incontinence, hematuria, dysuria, foul smelling urine, flank pain, fever, and or chills. In office urinalysis results reviewed with the patient today. Patient with a history of renal cysts. Imaging as follows: Renal U/S 12/31 bilateral renal cortical calcifications. There is a n onobstructive echogenic stone in the lower pole of the right kidney measuring 2 mm. No hydronephrosis noted bilaterally. Bilateral renal cysts which are stable when compared to previous CT 05/01. Labs are as follows: PSA: 04/30 1.0, 09/01 1.0, 07/03 1.1 Testosterone: 07/03 353 We discussed at length potential causes of low libido, ED, and lower urinary tract symptoms patient is experiencing. We discussed further interventions and risks and benefits of these interventions. We also discussed potential near future in office cystoscopy and or urodynamics for further assessment evaluation. We also discussed lifestyle modifications to assist with urological conditions. All questions were answered. He otherwise denies any other issues or concerns at this time. [facility] Medical History Hearing loss Vertigo Hypertension CAD (coronary artery disease) History of WI (myocardial infarction) No pertinent past medical history Surgical History History of cardiac cath Stented coronary artery H/O removal of cyst H/O shoulder surgery Hx of hernia repair Status post surgical removal of neoplasm of skin Hx of appendectomy Hx of cataract surgery Family History Father Heart problem Mother Heart problem Sister Mini stroke Social History Household Members: Family Both parents involved: No Caregiver staying overnight: No Housing: House Are you a primary home care aide to a significant other at home: No Do you presently have visiting nurse or other home services: No 75 years or older and lives alone: No Alcohol intake: current Alcohol intake frequency: a few times a month Alcohol type: beer and wine Patient Tobacco Use Status: Former Tobacco user Tobacco use type: Cigar e-Cigarette/Vaping Use: Never Used Second Hand Smoke Exposure: No service: No Current occupational status: employed 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 [employer] Current occupational exposures/hazards: No Cognitive needs: No Hearing needs: No Vision needs: Yes Review of Systems Const Reports no additional complaints Eyes Reports no additional complaints ENT Reports no additional complaints Card Reports as per HPI Resp Reports no additional complaints GI Reports as per HPI Reports as per HPI Musc Reports no additional complaints Neuro Reports no additional complaints Psych Reports no additional complaints Endo Reports no additional complaints Jean/Lymph Reports no additional complaints Aller/Immun Reports no additional complaints Physical Exam Const General: cooperative, healthy appearing, comfortable, no acute distress, well developed, alert and awake Orientation/consciousness: patient oriented x3 Limitations: no limitations HEENT Head: Yes normal to inspection, Yes normocephalic and Yes atraumatic Ears: hearing grossly normal bilaterally Eyes General: appearance normal, both eyes and all related structures Neck Neck: Yes normal visual inspection and Yes trachea midline Chest Chest palpation & inspection: normal inspection of the chest Resp Effort & Inspection: normal respiratory effort and able to speak in complete sentences Cardio Rate: regular rate GI Inspection: Yes normal to inspection General: Yes no CVA tenderness Back/Spine/Pelvis Back: no CVA tenderness Skin General skin exam: no rashes or lesions noted Neuro General: patient oriented x3 Extrem General: Yes normal to inspection Psych Appearance: grossly normal and well kempt Mental Status: mental status grossly normal Speech and movement: Normal speech and movement present and Clear speech present Affect: normal affect Attitude: cooperative Thought process: Normal thought process present Thought content: Normal thought content present Insight: Fair insight present (Psych) Judgement: Fair judgement present (Psych) Results AMB Urinalysis, Automated UA Leukoctes 0 Lyndsey/uL Last Edit by SAHARA Covarrubias on 09/09/25 13:18 UA Nitrite Negative Last Edit by SAHARA Covarrubias on 09/09/25 13:18 UA Urobilinogen 0.2 mg/dL Last Edit by SAHARA Covarrubias on 09/09/25 13:1 8 UA Protein 0 mg/dL Last Edit by SAHARA Covarrubias on 09/09/25 13:18 UA pH 6.5 Last Edit by SAHARA Covarrubias on 09/09/25 13:18 UA Blood 0 Mario/uL Last Edit by SAHARA Covarrubias on 09/09/25 13:18 UA Specific [place] 1.010 Last Edit by Bobby Sheppard [facility] on 09/09/25 13: 18 UA Ketone Negative Last Edit by [facility] on 09/09/25 13:18 UA Bilirubin 0 mg/dL Last Edit by Bobby Sheppard [facility] on 09/09/25 13:18 UA Glucose 0 mg/dL Last Edit by Bobby Sheppard [facility] on 09/09/25 13:18 Results Reviewed Results Reviewed: Laboratory Last Values Urine pH (Auto) 6.5 09/09/25 13:13 Specific [place] (Auto) 1.010 09/09/25 13:13 Urine Protein (Auto) 0 mg/dL 09/09/25 13:13 Glucose (UA)(Auto) 0 mg/dL 09/09/25 13:13 Urine Ketones (Auto) Negative 09/09/25 13:13 Urine Blood (Auto) 0 Mario/uL 09/09/25 13:13 Urine Nitrite (Auto) Negative 09/09/25 13:13 Urine Bilirubin (Auto) 0 mg/dL 09/09/25 13:13 Urine Urobilinogen (Auto) 0.2 mg/dL 09/09/25 13:13 Leukocyte Esterase (Auto) 0 Lyndsey/uL 09/09/25 13:13 Assessment & Plan Assessment & Plan (1) Low libido: Code(s): R68.82 - Decreased libido Category: Medical (2) Renal cyst: Code(s): N28.1 - Cyst of kidney, acquired Category: Medical (3) Complex renal cyst: Code(s): N28.1 - Cyst of kidney, acquired Category: Medical (4) Weak urinary stream: Code(s): R39.12 - Poor urinary stream Category: Medical (5) Nocturia: Code(s): R35.1 - Nocturia Category: Medical (6) Urinary hesitancy: Code(s): R39.11 - Hesitancy of micturition Category: Medical Plan In office urinalysis results reviewed with the patient today; as noted above. Most recent PSA and testosterone results reviewed with the patient today; as noted above. We did discussed at length further treatment options of lower urinary tract symptoms he is experiencing as well as risks and benefits of these treatment options. All questions were answered. Will continue with low-dose Cialis as discussed and prescribed. We discussed potential causes of ED, low libido, and lower urinary tract symptoms patient is experiencing. We discussed further treatment options of these urological conditions and risks and benefits of these treatment options. We also discussed potential near future in office cystoscopy and or urodynamics for further assessment evaluation if symptoms persist and/or worsen. We did discussed the importance of lifestyle modifications to assist with urological conditions as well as overall health and well-being. Will obtain renal ultrasound in 6 months Follow-up in 6 months with imaging; or sooner with any issues, concerns, and or questions. Orders: Orders AMB Urinalysis Automated Today Z13.9 - Encounter for screening, unspecified US renal BI 6 Months N28.1 - Cyst of kidney, acquired Medications: Refilled tadalafil (Cialis) [id number] [facility] [id number] Member [id number] 5 mg PO DAILY 90 tabs 3RF 90 days Patient Instructions: The patient had an opportunity to ask questions regarding the treatment plan. All questions were answered. Physical exam, labs, and imaging were discussed and reviewed in detail. As well as risks, benefits, and discussion of treatment choices. No major barriers to understanding were identified. The patient expressed understanding and agreement with the above treatment plan. The patient was made aware they should contact our office by phone for worsening of their current condition, the appearance of new symptoms, or with any questions or concerns. Compliance is encouraged with any medications and follow up testing that is ordered. It is a privilege to be allowed the opportunity to participate in? your urological care.? Again, if you have any questions or concerns If you have any questions or concerns please do not hesitate to contact me. The office is [phone]. This note is constructed using voice recognition software. While every effort has been made to ensure accuracy clinical geneticist errors may have been included. Yours sincerely, PEDRO Tinsley Coding Level of Care Code Est Pt Level 3 (98842) Complex visit Add On G2211 Diagnoses Low libido R68.82 Renal cyst N28.1 Complex renal cyst N28.1 Weak urinary stream R39.12 Nocturia R35.1 Urinary hesitancy R39.11
--- OUTSIDE RECORDS SUMMARY | 2025-09-09 15:00 | XMS_ITS | Clinical Summary ---
Author Organization [facility] Address [address] [place] [address] Care Team Providers Care Director Hair Name Role Phone Hector Colindres MD Primary Care Provider [phone] Allergies Active Allergy Reactions Criticality Noted Date [...] MEDICARE PART A & B [facility] Care Teams Director Hair Relationship Specialty Start Date End Date Hector Colindres MD [address] [place] [address] [place] [id number] PCP - General Family Medicine 10/15/24
== END 2025-09-09 14:00 | disposition home or self-care (01) ==
LOC: HO.HUSH 13:02
PROVIDERS: PCP Family Medicine; Visit Provider Nurse Practitioner Family
DX: R68.82 Decreased libido (principal); N28.1 Cyst of kidney, acquired; R39.12 Poor urinary stream; R35.1 Nocturia; R39.11 Hesitancy of micturition; Z13.9 Encounter for screening, unspecified
CPT/HCPCS: 99213; G2211

== ENCOUNTER → 2025-09-09 13:01 | Outpatient (BNVA) | payer MEDICARE, OTHER, SELFPAY | PROVIDERS: PCP Family Medicine; Visit Provider Nurse Practitioner Family | DX: R68.82 Decreased libido (principal); N28.1 Cyst of kidney, acquired; R39.12 Poor urinary stream; R35.1 Nocturia; R39.11 Hesitancy of micturition; Z13.9 Encounter for screening, unspecified | CPT/HCPCS: 81003; 99212 ==